=== PATIENT | male | born 1960 | race Caucasian/White ===

== ENCOUNTER 2018-02-16 19:10 | Inpatient (IN) | payer BC ==
[~2018-02-16] VITALS: Ht 180.3 cm; Wt 69.8 kg
[~2018-02-16 19:10] MED LIST: CYCL10TA PO
[2018-02-16] MEDS ORDERED: IOHEXOL 350 MG/ML 10 ML VIAL (for RAD DIAG) IVCONTRAST ONE (19:11)
[2018-02-16 19:40] VITALS: BP 86/55; PULSE 99; RESP 18; TEMP 98
[2018-02-16] MEDS ORDERED: CIPR500T2 PO (20:31)
[2018-02-16] MEDS ORDERED: METR1TAB76 PO (20:31)
[2018-02-16] MEDS ORDERED: METO1TAB42 PO (20:31)
[2018-02-16] MEDS ORDERED: FURO20TA PO (20:31)
[2018-02-16] MEDS ORDERED: SODIUM CHLOR 0.9% 1000 ML INJ 1,000 ML IV SCH (20:31)
[2018-02-16] MEDS ORDERED: GABA300C5 PO (20:31)
--- NOTE | 2018-02-16 20:31 | PD ---
HPI Chief Complaint: General Weakness Time Seen by Provider: 20:10 Travel History International Travel<30 days: No Contact w/Intl Traveler<30days: No Traveled to known affect area: No History of Present Illness HPI 57-year-old male with history of bladder cancer, prostate cancer with ureteral involvement status post prostatectomy with ileal conduit performed at [facility] in September 2016 status post chemotherapy and radiation therapy complicated by DVT. Patient subsequently had colo-vesical fistula underwent lysis of adhesions with colostomy 09/17/17. Subsequently developed pyuria from the urethra a CT September 2017 identified a fluid collection in the pelvis concerning for an abscess patient was managed at [facility] by Dr. soo ware and underwent exploratory laparotomy with small bowel resection and removal of an enterocutaneous fistula and drainage of pelvic abscess. Patient was managed during his hospitalization at [facility] in September also with infectious disease involvement and was treated with IV Zosyn oral Diflucan and ciprofloxacin patient also has history of CAD with previous UT cardiac catheterization with drug-eluting stent placed July 2017 and weight loss. Patient with history of tobacco use. Most recently patient was discharged approximately 3 weeks ago from [facility] after 3 months of hospitalizations for ongoing management of recurrent pelvic infection. Patient is currently on 3 outpatient antibiotics. Patient states that since he was discharged from [facility] in the past 2 weeks he has been seen by his oncologist Dr. Khan and his infectious disease specialist Dr. Altamirano. Patient states that he is not improving and has decided to come to [place] for a second opinion. Patient also reports he ran out of his pain medication 1 week ago and contacted his oncologist who prescribes his pain medication Dr. Khan and was told to come to the office on Wednesday (yesterday) or today Wednesday but when he contacted his oncologist they said he was not in the office. Patient decided to come to the emergency room at this time for a second opinion. Patient states he continues to have purulent drainage per rectum. Patient does not report any mucoid or bloody stool or rectal bleeding. PFSH Past Medical History Narrative Medical Bladder/prostate cancer status post surgical/chemo/radiation therapy under the care of Dr. Khan; colovesicular fistula pelvic abscess dyslipidemia CAD DVT weight loss cardiac catheterization with stent placement tobacco use; nursing notes reviewed Anxiety: No Depression: No Cancer: Yes (BLADDER - CHEMO/RADIATION) Cardiovascular Problems: No Chemotherapy: Yes (LAST NOV) Diabetes: No Diminished Hearing: No Endocrine: No Genitourinary: Yes (BLADDER CA, BPH) Hepatitis: No Hiatal Hernia: No Hypertension: Yes Immune Disorder: No Implanted Vascular Access Dvce: Yes (R INFUSA PORT- ADVISED HAS RIJ CLOT ) Musculoskeletal: No Neurologic: No Psychiatric: No Reproductive: No Respiratory: No Immunizations Current: Yes Radiation Therapy: Yes Thyroid Disease: No Past Surgical History AICD: No Body Medical Devices: RIGHT WRIST HARDWARE; Cardiac Surgery: No Ear Surgery: No Endocrine Surgery: No Eye Surgery: No Genitourinary Surgery: Yes (MULTI CYSTOS/ BLADDER SCRAPINGS) Gynecologic Surgery: No Joint Replacement: No Oral Surgery: No Pacemaker: No Thoracic Surgery: No Tonsillectomy: Yes Other Surgery: Yes (SEBACEOUS CYST REMOVAL, TUMOR REMOVED FROM BLADDER) Social History Alcohol Use: No Tobacco Use: No Substance Use: No Allergies-Medications (Allergen,Severity, Reaction): Coded Allergies: No Known Allergies (Verified Allergy, Unknown, 08/11/17) Reported Meds & Prescriptions Reported Meds & Active Scripts Active Reported Gabapentin 300 Mg Cap 300 Mg PO TID Ciprofloxacin (Ciprofloxacin HCl) 500 Mg Tab 500 Mg PO TID Metoprolol Succinate ER 24 HR (Metoprolol Succinate) 25 Mg Tab 25 Mg PO DAILY Furosemide 20 Mg Tab 20 Mg PO DAILY Metronidazole 500 Mg Tab 500 Mg PO TID Review of Systems Except as stated in HPI: all other systems reviewed are Neg General / Constitutional: Positive: Weight Loss, No: Fever, Chills HENT: No: Congestion Cardiovascular: No: Chest Pain or Discomfort Respiratory: No: Shortness of Breath Gastrointestinal: Positive: Other (pelvic/rectal pain and drainage from anus), No: Vomiting, Abdominal Pain Genitourinary: Positive: Pelvic Pain (chronmic) Musculoskeletal: Positive: Edema (pedal --taking lasix), No: Myalgias, Arthralgias Neurologic: Positive: Weakness, No: Dizziness, Syncope, Focal Abnormalities, Coordination Problem Psychiatric: Positive: Anxiety Hematologic/Lymphatic: No: Lymph Node Enlargement Physical Exam Narrative GENERAL: Ill-appearing male in no acute respiratory distress no acute distress. SKIN: Warm and dry. HEAD: Normocephalic. EYES: No scleral icterus. No injection or drainage. NECK: Supple, trachea midline. No JVD or lymphadenopathy. CARDIOVASCULAR: Regular rate and rhythm without murmurs, gallops, or rubs. RESPIRATORY: Breath sounds equal bilaterally. No accessory muscle use. GASTROINTESTINAL: Abdomen soft, non-tender, colostomy, ileal conduit, nondistended. MUSCULOSKELETAL: No cyanosis, or edema. BACK: Nontender without obvious deformity. No CVA tenderness. Data Data Last Documented VS Vital Signs Date Time Temp Pulse Resp B/P (MAP) Pulse Ox O2 Delivery O2 Flow Rate FiO2 02/16/18 23:07 18 95/61 (72) 100 Room Air 02/16/18 22:17 88 02/16/18 19:40 98.0 Orders Orders Complete Blood Count With Diff (02/16/18 20:31) Comprehensive Metabolic Panel (02/16/18 20:31) Lipase (02/16/18 20:31) Lactic Acid (02/16/18 20:31) Urinalysis - C+S If Indicated (02/16/18 20:31) Abdomen, Flat & Upright (02/16/18 ) Iv Access Insert/Monitor (02/16/18 20:31) Ecg Monitoring (02/16/18 20:31) Oximetry (02/16/18 20:31) Sodium Chlor 0.9% 1000 Ml Inj (Ns 1000 M (02/16/18 20:31) Sodium Chloride 0.9% Flush (Ns Flush) (02/16/18 20:45) Blood Culture (02/16/18 20:31) Urine Culture (02/16/18 20:58) Drug Screen, Random Urine (02/16/18 22:11) Sodium Chlorid 0.9% 500 Ml Inj (Ns 500 M (02/16/18 22:15) Cefepime Inj (Maxipime Inj) (02/16/18 22:15) Vancomycin Inj (Vancomycin Inj) (02/16/18 22:15) Ct Abd/Pel W Iv Contrast(Rout) (02/16/18 ) Admit Order (Ed Use Only) (02/16/18 ) Form Tamper Operator / Telemetry NAOMI.Q8H (02/16/18 23:09) Diet Heart Healthy (02/17/18 Breakfast) Activity Bed Rest (02/16/18 23:09) Notify Dr: Other (02/16/18 23:09) Iohexol 350 Inj (Omnipaque 350 Inj) (02/16/18 19:11) Labs Laboratory Tests Test 02/16/18 20:50 02/16/18 20:58 White Blood Count 14.0 TH/MM3 Red Blood Count 3.51 MIL/MM3 Hemoglobin 10.1 GM/DL Hematocrit 31.1 % Mean Corpuscular Volume 88.8 FL Mean Corpuscular Hemoglobin 28.9 PG Mean Corpuscular Hemoglobin Concent 32.5 % Red Cell Distribution Width 18.6 % Platelet Count 395 TH/MM3 Mean Platelet Volume 7.1 FL Neutrophils (%) (Auto) 87.6 % Lymphocytes (%) (Auto) 5.2 % Monocytes (%) (Auto) 5.3 % Eosinophils (%) (Auto) 1.3 % Basophils (%) (Auto) 0.6 % Neutrophils # (Auto) 12.3 TH/MM3 Lymphocytes # (Auto) 0.7 TH/MM3 Monocytes # (Auto) 0.7 TH/MM3 Eosinophils # (Auto) 0.2 TH/MM3 Basophils # (Auto) 0.1 TH/MM3 CBC Comment DIFF FINAL Differential Comment Blood Urea Nitrogen 35 MG/DL Creatinine 1.55 MG/DL Random Glucose 101 MG/DL Total Protein 6.5 GM/DL Albumin 2.4 GM/DL Calcium Level 8.3 MG/DL Alkaline Phosphatase 79 U/L Aspartate Amino Transf (AST/SGOT) 37 U/L Alanine Aminotransferase (ALT/SGPT) 27 U/L Total Bilirubin 0.3 MG/DL Sodium Level 136 MEQ/L Potassium Level 4.5 MEQ/L Chloride Level 101 MEQ/L Carbon Dioxide Level 21.3 MEQ/L Anion Gap 14 MEQ/L Estimat Glomerular Filtration Rate 47 ML/MIN Lactic Acid Level 2.6 mmol/L Lipase 92 U/L Urine Color YELLOW Urine Turbidity HAZY Urine pH 6.0 Urine Specific [place] 1.015 Urine Protein 30 mg/dL Urine Glucose (UA) NEG mg/dL Urine Ketones NEG mg/dL Urine Occult Blood NEG Urine Nitrite NEG Urine Bilirubin NEG Urine Urobilinogen LESS THAN 2.0 MG/DL Urine Leukocyte Esterase LARGE Urine RBC 6 /hpf Urine WBC 63 /hpf Urine Squamous Epithelial Cells 1 /hpf Urine Bacteria RARE /hpf Urine Mucus FEW /lpf Urine Yeast (Budding) OCC Microscopic Urinalysis Comment CULTURE INDICATED Urine Opiates Screen POS Urine Barbiturates Screen NEG Urine Amphetamines Screen NEG Urine Benzodiazepines Screen NEG Urine Cocaine Screen NEG Urine Cannabinoids Screen POS MDM Medical Decision Making Medical Screen Exam Complete: Yes Emergency Medical Condition: Yes Medical Record Reviewed: Yes (Diagnosed with bladder mass December 2013 at [facility] next day was seen at [place] admitted with biopsy and resection of mass by Dr. Iyer returned again in March 2015 with sepsis neutropenia after chemotherapy with radiation proctocolitis and diagnosis of small cell cancer of the bladder subsequently gap in management in the hospital at [place] until records were sent to office September 23 visits at [facility] conducted July 2000 05 September 2017 and September 2017.) Differential Diagnosis Pelvic infection, failed outpatient antibiotic therapy, intractable pain, sepsis , electrolyte disturbance Narrative Course IV access obtained specimens collected and sent for resulting patient given bolus of normal saline requesting pain medication but is currently hypotensive therefore unable to administer pain medication at this time At 10 PM records from [facility] available as of 01/02/18 pelvic abscess osteomyelitis of pubic symphysis possible sepsis treated with Zosyn and vancomycin and Flagyl surgery or the oncology consulted with history of bladder cancer status post cystectomy ileal conduit with enterocutaneous fistula and abscess completed cefepime STEMI ST elevation UT treated with Lovenox acute kidney injury with bilateral hydronephrosis hypomagnesemia hyperkalemia ileus polysubstance abuse urine drug screen positive for cocaine and THC and opiates; during the same hospitalization patient underwent successful angioplasty of completely occluded LAD 01/13/[address] Ingram Physician Communication Physician Communication h/o osteomyelitis; discussed with Dr Calhoun Diagnosis Primary Impression: Sepsis Additional Impressions: Hx of osteomyelitis H/O abdominal abscess Admitting Information Admitting Physician Requests: Admit Anabel Cardoso MD February 16, 2018 20:31
[2018-02-16] MEDS ORDERED: SODIUM CHLORIDE 0.9% FLUSH 10 ML FLUSH IV FLUSH PRN (20:45)
[2018-02-16 21:35] LABS: AUTOMATED NEUTROPHIL # 12.3 TH/MM3 (1.8-7.7); BASOPHIL # 0.1 TH/MM3 (0-0.2); BASOPHIL % 0.6 % (0.0-2.0); EOSINOPHIL # 0.2 TH/MM3 (0-0.4); EOSINOPHIL % 1.3 % (0.0-4.0); HEMATOCRIT 31.1 % (39.0-51.0); HEMOGLOBIN 10.1 GM/DL (13.0-17.0); LYMPH % 5.2 % (9.0-44.0); LYMPHOCYTE # 0.7 TH/MM3 (1.0-4.8); MEAN CELL VOLUME 88.8 FL (80.0-100.0); MEAN CORPUSCULAR HEMOGLOBIN 28.9 PG (27.0-34.0); MEAN CORPUSCULAR HGB CONC 32.5 % (32.0-36.0); MEAN PLATELET VOLUME 7.1 FL (7.0-11.0); MONO % 5.3 % (0.0-8.0); MONOCYTE # 0.7 TH/MM3 (0-0.9); NEUT % 87.6 % (16.0-70.0); PLATELET COUNT 395 TH/MM3 (150-450); RED BLOOD COUNT 3.51 MIL/MM3 (4.50-5.90); RED CELL DISTRIBUTION WIDTH 18.6 % (11.6-17.2)
[2018-02-16 21:44] LABS: BACTERIA, URINE RARE /hpf; BILIRUBIN, URINE NEG (NEG); BLOOD, URINE NEG (NEG); GLUCOSE,URINE NEG (NEG); KETONE, URINE NEG (NEG); MUCUS URINE FEW /lpf (OCC); NITRITE,URINE NEG (NEG); SQUAMOUS EPITHELIAL CELL URINE 1 /hpf (0-5); URINE COLOR YELLOW (YELLW/STRAW); URINE LEUKOCYTE ESTERASE LARGE (NEG)
--- NOTE | 2018-02-16 21:46 | RADRPT ---
EXAM DATE: 02/16/2018 9:36 PM EDT AGE/SEX: 57 years / Male INDICATIONS: Rectal pain and discharge. CLINICAL DATA: This is the patient's initial encounter. Patient reports that signs and symptoms have been present for 4 - 6 months and indicates a pain score of 7/10. MEDICAL/SURGICAL HISTORY: Carcinoma, bladder. Carcinoma, prostatic. Hypertension. Myocardial infarction. Chemotherapy. Radiation. Colostomy. Prostatectomy. Ileostomy. Transurethral resection. COMPARISON: No prior [facility] exams available for comparison. FINDINGS: Supine and upright views of the abdomen were performed. The abdominal bowel gas pattern is normal. No air-fluid levels are seen.. There appears to be two colostomies along the right and left midabdomen. Multiple surgical clips are seen in the pelvis bilaterally. There is a catheter overlying the suprap ubic area. The visualized lower lungs are clear. No evidence of free intraperitoneal gas. The osseous structures are unremarkable. CONCLUSION: Benign-appearing abdomen. Electronically signed by: Guzman Pablo MD 02/16/2018 9:44 PM EDT
[2018-02-16 22:00] LABS: ALT (GPT) 27 U/L (12-78)
[2018-02-16 22:02] LABS: ALKALINE PHOSPHATASE 79 U/L (45-117); TOTAL BILIRUBIN ADULT 0.3 MG/DL (0.2-1.0); TOTAL PROTEIN 6.5 GM/DL (6.4-8.2)
[2018-02-16 22:03] LABS: ALBUMIN 2.4 GM/DL (3.4-5.0); AST (GOT) 37 U/L (15-37); BICARBONATE 21.3 MEQ/L (21.0-32.0); BLOOD UREA NITROGEN 35 MG/DL (7-18); CALCIUM 8.3 MG/DL (8.5-10.1); CHLORIDE 101 MEQ/L (98-107); CREATININE 1.55 MG/DL (0.60-1.30); GLOMERULAR FILTRATION RATE 47 ML/MIN (>89); GLUCOSE,RANDOM 101 MG/DL (74-106); SODIUM (NA) 136 MEQ/L (136-145)
[2018-02-16] MEDS ORDERED: SODIUM CHLORID 0.9% 500 ML INJ 500 ML IV ONE (22:15)
[2018-02-16] MEDS ORDERED: VANCOMYCIN INJ 1,000 MG in SODIUM CHLOR 0.9% 250 ML INJ 250 ML IV ONE (22:15)
[2018-02-16] MEDS ORDERED: CEFEPIME INJ 2,000 MG in SODIUM CHLORIDE 0.9% INJ 100 ML IV ONE (22:15)
[2018-02-16 22:17] VITALS: BP 86/60; PULSE 88; RESP 16; O2SAT 95
[2018-02-16 23:07] VITALS: BP 95/61; RESP 18; O2SAT 100
--- NOTE | 2018-02-16 23:21 | RADRPT ---
EXAM DATE: 02/16/2018 11:09 PM EDT AGE/SEX: 57 years / Male INDICATIONS: Abdomen and pelvic pain. History of osteomyelitis. Discharge from rectum. CLINICAL DATA: This is the patient's initial encounter. Patient reports that signs and symptoms have been present for 1 week and indicates a pain score of 8/10. MEDICAL/SURGICAL HISTORY: Cardiovascular disease. Hypertension. Carcinoma, bladder. Colostomy . Prostatectomy. Ileostomy ORAL CONTRAST: No oral contrast ingested. RADIATION DOSE: 7.41 CTDI (mGy) [place] [facility] [place] 04/07/2015. . TECHNIQUE: Multiple contiguous axial images were obtained through the abdomen and pelvis following b olus infusion of 80 ml Omnipaque 350 (iohexol) nonionic water-soluble contrast as a cumulative dose for multiple exams. No oral contrast ingested. Using automated exposure control and adjustment of t he mA and/or kV according to patient size, the radiation dose was kept as low as reasonably achievabl e to obtain optimal diagnostic quality images. FINDINGS: Abdomen CT: The liver, spleen, pancreas, kidneys, adrenals are unremarkable. There is no evidence for any appreci able pathological adenopathy, free fluid, or bowel obstruction. There is diffuse anasarca. The stoma ch is distended measures 17.8 cm in size. Vascular calcifications are seen involving aorta and multip le visceral arteries and iliac arteries. Pelvic CT: There is an approximate 6.1 x 9.8 cm fluid collection inside the patient's rectum. The exact etiology is not certain, however possibility of abscess should be entertained. Extensive postsurgical changes are seen throughout. Ostomy site is seen on the right side and is extensive stool throughout the col on. Suprapubic catheter is present inside the bladder. CONCLUSION: 1. Diffuse anasarca. 2. Abnormal fluid collection inside the rectum nonspecific, however infectious fluid collection coul d have this appearance and clinical correlation is suggested. The exact etiology is not certain. 3. The stomach is distended with significant amount of stool throughout the colon without signs of s mall bowel obstruction. Electronically signed by: Shailesh Peter MD 02/16/2018 11:20 PM EDT
[2018-02-17] VITALS (13 sets, daily range): BP systolic 92–130; BP diastolic 59–77; PULSE 56–103; RESP 15–18; TEMP 97.5–98.1; O2SAT 94–96
[2018-02-17] MEDS ORDERED: LACTULOSE SYRUP 20 GM/30 ML CUP PO PRN (01:30)
[2018-02-17] MEDS ORDERED: ACETAMINOPHEN 325 MG TAB PO PRN (01:30)
[2018-02-17] MEDS ORDERED: SENNOSIDES 8.6 MG TAB PO PRN (01:30)
[2018-02-17] MEDS ORDERED: Vancomycin Consult Pharmacy 1 EA OTHER SCH (01:30)
[2018-02-17] MEDS ORDERED: MAGNESIUM HYDROXIDE SUSP 30 ML CUP PO PRN (01:30)
[2018-02-17] MEDS ORDERED: BISACODYL 10 MG SUPP RECTAL PRN (01:30)
[2018-02-17] MEDS ORDERED: NALOXONE HCL 0.4 MG/ML AMP IV PUSH PRN (01:30)
[2018-02-17] MEDS: SODIUM CHLOR 0.9% 1000 ML INJ 1,000 ML IV SCH ×3 (01:45→20:14)
[2018-02-17] MEDS ORDERED: ONDANSETRON ODT 4 MG TAB PO PRN ×2 (01:45)
--- NOTE | 2018-02-17 03:40 | HHI.HP ---
HPI Service [facility] Hospitalists Primary Care Physician Unknown Admission Diagnosis sepsis; h/o pelvic osteomyelitis; bladder CA Diagnoses: Travel History International Travel<30 Days: No Contact w/Intl Traveler <30 Da: No Traveled to Known Affected Are: No History of Present Illness 57-year-old male with a past medical history significant for bladder cancer, known pelvic abscess/infection and coronary disease status post SD 2 presents to the emergency department for the evaluation of pelvic pain that is not improving. The patient has an oncologist and infectious disease specialist at [facility] however he states he wanted to come to [place] for second opinion as he is compliant with his medication and his pain is not improving. The patient underwent prostatectomy with ileal conduit performed at [facility] in September 2016. He is status post chemotherapy and radiation therapy that was complicated by a DVT. 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 Subsequently developed pyuria from the urethra and a CT scan done in September 2017 identified a fluid collection in the pelvis concerning for an abscess. The patient was treated in [facility] for approximately 3 months (discharged 3 weeks ago) where he was treated with Zosyn, oral Diflucan and oral Cipro. Patient was discharged on Flagyl and Cipro with which he reports compliance. Of note the patient reports he ran out of his pain medication approximately 1 week ago. Patient denies any chest pain or shortness of breath. No fevers/chills. Positive pelvic pain. No nausea/vomiting/diarrhea. No lateralizing signs/ symptoms. Past Family Social History Allergies: Coded Allergies: No Known Allergies (Verified Allergy, Unknown, 08/11/17) Physical Exam Vital Signs Vital Signs Date Time Temp Pulse Resp B/P (MAP) Pulse Ox O2 Delivery O2 Flow Rate FiO2 02/17/18 02:32 102 16 108/68 (81) 96 Room Air 02/16/18 23:07 18 95/61 (72) 100 Room Air 02/16/18 22:17 88 16 86/60 (69) 95 Room Air 02/16/18 19:40 98.0 99 18 86/55 (65) Physical Exam GENERAL: This is a well-nourished, well-developed patient, in no apparent distress. SKIN: No rashes, ecchymoses or lesions. Cool and dry. HEAD: Atraumatic. Normocephalic. No temporal or scalp tenderness. EYES: Pupils equal round and reactive. Extraocular motions intact. No scleral icterus. No injection or drainage. ENT: Nose without bleeding, purulent drainage or septal hematoma. Throat without erythema, tonsillar hypertrophy or exudate. Uvula midline. Airway patent. NECK: Trachea midline. No JVD or lymphadenopathy. Supple, nontender, no meningeal signs. CARDIOVASCULAR: Regular rate and rhythm without murmurs, gallops, or rubs. RESPIRATORY: Clear to auscultation. Breath sounds equal bilaterally. No wheezes , rales, or rhonchi. GASTROINTESTINAL: Abdomen soft, non-tender, nondistended. No hepato-splenomegaly , or palpable masses. No guarding. MUSCULOSKELETAL: Extremities without clubbing, cyanosis, or edema. No joint tenderness, effusion, or edema noted. No calf tenderness. Negative Homans sign bilaterally. NEUROLOGICAL: Awake and alert. Cranial nerves II through XII intact. Motor and sensory grossly within normal limits. Five out of 5 muscle strength in all muscle groups. Normal speech. Laboratory Laboratory Tests Test 02/16/18 20:50 02/16/18 20:58 White Blood Count 14.0 Red Blood Count 3.51 Hemoglobin 10.1 Hematocrit 31.1 Mean Corpuscular Volume 88.8 Mean Corpuscular Hemoglobin 28.9 Mean Corpuscular Hemoglobin Concent 32.5 Red Cell Distribution Width 18.6 Platelet Count 395 Mean Platelet Volume 7.1 Neutrophils (%) (Auto) 87.6 Lymphocytes (%) (Auto) 5.2 Monocytes (%) (Auto) 5.3 Eosinophils (%) (Auto) 1.3 Basophils (%) (Auto) 0.6 Neutrophils # (Auto) 12.3 Lymphocytes # (Auto) 0.7 Monocytes # (Auto) 0.7 Eosinophils # (Auto) 0.2 Basophils # (Auto) 0.1 CBC Comment DIFF FINAL Differential Comment Blood Urea Nitrogen 35 Creatinine 1.55 Random Glucose 101 Total Protein 6.5 Albumin 2.4 Calcium Level 8.3 Alkaline Phosphatase 79 Aspartate Amino Transf (AST/SGOT) 37 Alanine Aminotransferase (ALT/SGPT) 27 Total Bilirubin 0.3 Sodium Level 136 Potassium Level 4.5 Chloride Level 101 Carbon Dioxide Level 21.3 Anion Gap 14 Estimat Glomerular Filtration Rate 47 Lactic Acid Level 2.6 Lipase 92 Urine Color YELLOW Urine Turbidity HAZY Urine pH 6.0 Urine Specific [place] 1.015 Urine Protein 30 Urine Glucose (UA) NEG Urine Ketones NEG Urine Occult Blood NEG Urine Nitrite NEG Urine Bilirubin NEG Urine Urobilinogen LESS THAN 2.0 Urine Leukocyte Esterase LARGE Urine RBC 6 Urine WBC 63 Urine Squamous Epithelial Cells 1 Urine Bacteria RARE Urine Mucus FEW Urine Yeast (Budding) OCC Microscopic Urinalysis Comment CULTURE INDICATED Urine Opiates Screen POS Urine Barbiturates Screen NEG Urine Amphetamines Screen NEG Urine Benzodiazepines Screen NEG Urine Cocaine Screen NEG Urine Cannabinoids Screen POS Date/Time Source Procedure Growth Status 02/16/18 20:58 Blood Peripheral Aerobic Blood Culture Pending Received 02/16/18 20:58 Blood Peripheral Anaerobic Blood Culture Pending Received 02/16/18 20:58 Urine Random Urine Urine Culture Pending Received Result Diagram: 02/16/18204902/16/182049 Caprini VTE Risk Assessment Caprini VTE Risk Assessment: Mod/High Risk (score >= 2) Caprini Risk Assessment Model Point Value = 1 Point Value = 2 Point Value = 3 Point Value = 5 Age 41-60 Minor surgery BMI > 25 kg/m2 Swollen legs Varicose veins or History of unexplained or recurrent spontaneous Oral contraceptives or hormone replacement Sepsis (< 1 month) Serious lung disease, including pneumonia (< 1 month) Abnormal pulmonary function Acute myocardial infarction Congestive heart failure (< 1 month) History of inflammatory bowel disease Medical patient at bed rest Age 61-74 Arthroscopic surgery Major open surgery (> 45 min) Laparoscopic surgery (> 45 min) Malignancy Confined to bed (> 72 hours) Immobilizing plaster cast Central venous access Age >= 75 History of VTE Family history of VTE Factor V Leiden Prothrombin [id number] Lupus anticoagulant Anticardiolipin antibodies Elevated serum homocysteine Heparin-induced thrombocytopenia Other congenital or acquired thrombophilia Stroke (< 1 month) Elective arthroplasty Hip, pelvis, or leg fracture Acute spinal cord injury (< 1 month) Prophylaxis Regimen Total Risk Factor Score Risk Level Prophylaxis Regimen 0-1 Low Early ambulation 2 Moderate Order ONE of the following: *Sequential Compression Device (SCD) *Heparin 5000 units SQ BID 3-4 Higher Order ONE of the following medications: *Heparin 5000 units SQ TID *Enoxaparin/Lovenox 40 mg SQ daily (WT < 150 kg, CrCl > 30 mL/min) *Enoxaparin/Lovenox 30 mg SQ daily (WT < 150 kg, CrCl > 10-29 mL/min) *Enoxaparin/Lovenox 30 mg SQ BID (WT < 150 kg, CrCl > 30 mL/min) AND/OR *Sequential Compression Device (SCD) 5 or more Highest Order ONE of the following medications: *Heparin 5000 units SQ TID (Preferred with Epidurals) *Enoxaparin/Lovenox 40 mg SQ daily (WT < 150 kg, CrCl > 30 mL/min) *Enoxaparin/Lovenox 30 mg SQ daily (WT < 150 kg, CrCl > 10-29 mL/min) *Enoxaparin/Lovenox 30 mg SQ BID (WT < 150 kg, CrCl > 30 mL/min) AND *Sequential Compression Device (SCD) Assessment and Plan Assessment and Plan Assessment/plan: 1. Pelvic infection/sepsis Patient with elevated lactic acid, leukocytosis, tachycardia and hypotension CT of the abdomen/pelvis horrible for correction and find the rectum that is nonspecific however may be infectious Vancomycin and cefepime Blood cultures pending Infectious disease consulted, appreciate recommendations 2. History of bladder cancer Continue outpatient follow-up with oncologist 3. Coronary artery disease Continue metoprolol 4. Anasarca Continue Lasix FEN Heart healthy diet Electrolytes: Monitor and replete as needed NS at 100 cc/hour Holding pharmacologic anticoagulation for possible fluid collection drainage Physician Certification 2 Midnight Certification Type: Admission for Inpatient Services Order for Inpatient Services The services are ordered in accordance with Medicare regulations or non- Medicare payer requirements, as applicable. In the case of services not specified as inpatient-only, they are appropriately provided as inpatient services in accordance with the 2-midnight benchmark. Estimated LOS (days): 2 2 days is the estimated time the patient will need to remain in the hospital, assuming treatment plan goals are met and no additional complications. Post-Hospital Plan: Not yet determined Hailee Calhoun MD February 17, 2018 03:40
[2018-02-17] MEDS: FUROSEMIDE 20 MG TAB PO SCH (08:30)
[2018-02-17] MEDS: GABAPENTIN 300 MG CAP PO SCH ×3 (08:30→20:07)
[2018-02-17] MEDS: METOPROLOL SUCCINATE 25 MG EXTENDED RELEASE TAB PO SCH (08:30)
[2018-02-17] MEDS: SODIUM CHLORIDE 0.9% FLUSH 10 ML FLUSH IV FLUSH SCH ×2 (08:31→20:10)
[2018-02-17] MEDS: CEFEPIME INJ 2,000 MG in SODIUM CHLORIDE 0.9% INJ 100 ML IV SCH ×2 (10:43→22:57)
[2018-02-17] MEDS ORDERED: OXYC-396 (10:59)
[2018-02-17] MEDS ORDERED: HYDR8TAB PO (11:00)
[2018-02-17] MEDS ORDERED: SODIUM CHLORID 0.9% 500 ML INJ 500 ML IV ONE (11:15)
[2018-02-17] MEDS ORDERED: MORPHINE SULFATE 2 MG/ML SYRINGE IV PUSH PRN (11:15)
[2018-02-17] MEDS ORDERED: HYDROmorphone HCL PF 1 MG/ML VIAL IV PUSH ONE (11:30)
[2018-02-17] MEDS ORDERED: HYDROmorphone HCL PF 2 MG/ML VIAL IV PUSH ONE (11:30)
--- NOTE | 2018-02-17 12:39 | PD.ID.CON ---
History of Present Illness Service Infectious disease Consult Requested By Hospitalist service Reason for Consult Osteomyelitis of pubic symphysis Primary Care Physician Unknown Diagnoses: History of Present Illness Patient seen and examined on behalf of Dr. Junior This is a 57-year-old male with past medical history significant for bladder cancer prostate cancer with ureteral involvement diagnosed in 2013 who subsequently underwent bladder resection and radical prostatectomy with ileal conduit that was performed at [facility] in September 2016. Patient has undergone chemotherapy and radiation therapy is complicated by development of a DVT. He subsequently developed a colo-vesicle fistula and underwent lysis of adhesions with colostomy that was performed September 17, 2017. In September of this year, patient was admitted at [facility] for fluid collection in the pelvis concerning for abscess and underwent an expiratory laparotomy with small bowel resection and removal of enterocutaneous fistula and drainage of pelvic abscess. Patient was managed during this hospitalization by infectious disease and treated with IV Zosyn, Diflucan and ciprofloxacin. Most recently, patient was discharged approximately 3 weeks ago from [facility] after 3 months of hospitalization for ongoing management of recurrent pelvic infection. He was discharged on oral Flagyl and Cipro which he states he has been compliant with. Patient has continued to follow-up with his oncologist Dr. Khan and his infectious disease specialist Dr. Altamirano as an outpatient. Patient reports a 40 pound weight loss in the past month. Patient decided to come to [place] for second opinion as he states he is not improving. He continues to have severe pain in his rectum and bloody mucoid discharge. Patient denies any complaints of fever, chills or night sweats. He denies any nausea vomiting or abdominal pain. He denies any chest pain or shortness of breath. In the ED, patient presented with sepsis with white count of 14, lactic acid 2.6, renal failure with creatinine 1.55, hypotension and tachycardia. CT of the abdomen and pelvis was obtained which revealed diffuse anasarca, distended stomach and a 6.1 x 9.8 cm fluid collection inside the patient's rectum with extensive stool throughout the colon without any signs of obstruction. UA was suggestive of UTI with large leukocytes, 63 white blood cells, 6 red blood cells, rare bacteria and occasional yeast, culture indicated. Infectious disease consultation has been requested for evaluation and management of abdominal abscess. (Alix Fajardo) Review of Systems Except as stated in HPI: all other systems reviewed are Neg (Alix Fajardo) Past Family Social History Allergies: Coded Allergies: No Known Allergies (Verified Allergy, Unknown, 08/11/17) Past Medical History Bladder cancer Prostate cancer with ureteral involvement Colourethral fistula Hx of pelvic abscess Pelvic pubic symphysis osteomyelitis CAD s/p AR x 2 and stent implantation Dyslipidemia Previous DVT Past Surgical History Radical cystoproctectomy with ileal conduit Exploration with clean out of pelvic abscess and diverting colostomy Exploratory laparotomy for clean out of pelvic abscess ORIF right wrist Reported Medications Hydromorphone (Hydromorphone HCl) 8 Mg Tab 8 Mg PO Q6H PRN Oxycodone (Oxycodone HCl) 20 Mg Tab 20 Mg Q4HR PRN Gabapentin 300 Mg Cap 300 Mg PO TID Ciprofloxacin (Ciprofloxacin HCl) 500 Mg Tab 500 Mg PO TID Metoprolol Succinate ER 24 HR (Metoprolol Succinate) 25 Mg Tab 25 Mg PO DAILY Furosemide 20 Mg Tab 20 Mg PO DAILY Metronidazole 500 Mg Tab 500 Mg PO TID Active Ordered Medications IV Cefepime IV Vancomycin Current Medications Medications (Trade) Dose Ordered Sig/Bruno Route Start Time Stop Time Status Last Admin Sodium Chloride 1,000 ml @ 100 mls/hr Q10H IV 02/17/18 01:25 02/17/18 01:45 (NS Flush) 2 ml UNSCH PRN IV FLUSH 02/17/18 01:30 (NS Flush) 2 ml BID IV FLUSH 02/17/18 09:00 02/17/18 08:31 (Tylenol) 650 mg Q4H PRN PO 02/17/18 01:30 (Narcan Inj) 0.4 mg UNSCH PRN IV PUSH 02/17/18 01:30 (Milk Of Magnesia Liq) 30 ml Q12H PRN PO 02/17/18 01:30 (Senokot) 17.2 mg Q12H PRN PO 02/17/18 01:30 (Dulcolax Supp) 10 mg DAILY PRN RECTAL 02/17/18 01:30 (Lactulose Liq) 30 ml DAILY PRN PO 02/17/18 01:30 Pharmacy Profile Note 0 ml @ 0 mls/hr UNSCH OTHER 02/17/18 01:30 Cefepime HCl 2000 mg/Sodium Chloride 100 ml @ 200 mls/hr Q12H IV 5/31/18 11:00 02/17/18 10:43 (Lasix) 20 mg DAILY PO 02/17/18 09:00 02/17/18 08:30 (Neurontin) 300 mg TID PO 02/17/18 09:00 02/17/18 08:30 (Toprol Xl) 25 mg DAILY PO 02/17/18 09:00 02/17/18 08:30 (Zofran Odt) 4 mg Q6H PRN PO 02/17/18 01:45 Vancomycin HCl 1000 mg/Sodium Chloride 250 ml @ 250 mls/hr Q24H IV 02/17/18 17:00 ([facility] [place] Lab Info) SPECIFIC LAB TO BE DRAWN: VANCO TROUGH DATE... ONCE ONCE .XX 02/19/18 16:45 02/19/18 16:46 Sodium Chloride 500 ml @ 500 mls/hr BOLUS ONCE IV 02/17/18 11:15 02/17/18 12:14 (Morphine Inj) 5 mg Q4H PRN IV PUSH 02/17/18 11:15 (Dilaudid Pf Inj) 1 mg Q4H PRN IV PUSH 02/17/18 11:30 (Morphine Inj) 2 mg Q4H PRN IV PUSH 02/17/18 11:30 Family History Reviewed with patient and noncontributory Social History Patient denies any tobacco use, EtOH consumption or IVDU. Patient admits to smoking marijuana. (Alix Fajardo) Physical Exam Vital Signs Vital Signs Date Time Temp Pulse Resp B/P (MAP) Pulse Ox O2 Delivery O2 Flow Rate FiO2 02/17/18 10:42 97.5 18 93/72 (79) 02/17/18 09:45 97.9 78 16 128/77 (94) 98 02/17/18 07:41 98.1 85 15 130/71 (90) 96 Room Air 02/17/18 07:41 87 16 96 Room Air 02/17/18 02:32 102 16 108/68 (81) 96 Room Air 02/16/18 23:07 18 95/61 (72) 100 Room Air 02/16/18 22:17 88 16 86/60 (69) 95 Room Air 02/16/18 19:40 98.0 99 18 86/55 (65) Physical Exam GENERAL: This is a thin ill-appearing male patient, in no apparent distress. Awake and alert. Appears uncomfortable from rectal pain, standing and leaning over on table during visit. SKIN: No rashes, ecchymoses or lesions. Cool and dry. HEAD: Atraumatic. Normocephalic. No temporal or scalp tenderness. EYES: Pupils equal round and reactive. Extraocular motions intact. No scleral icterus. No injection or drainage. ENT: Nose without bleeding or purulent drainage. Throat without erythema, tonsillar hypertrophy or exudate. Uvula midline. Airway patent. NECK: Trachea midline. No JVD or lymphadenopathy. Supple, nontender, no meningeal signs. CARDIOVASCULAR: Regular rate and rhythm without murmurs, gallops, or rubs. RESPIRATORY: Clear to auscultation. Breath sounds equal bilaterally. No wheezes , rales, or rhonchi. GASTROINTESTINAL: Abdomen soft, non-tender, nondistended. No hepato-splenomegaly , or palpable masses. No guarding. +Ileal Conduit with clear yellow urine in bag. +Colostomy LLQ MUSCULOSKELETAL: Extremities without clubbing or cyanosis. 2+ BLE pitting edema. No joint tenderness, effusion, or edema noted. No calf tenderness. NEUROLOGICAL: Awake and alert. Cranial nerves II through XII intact. Motor and sensory grossly within normal limits. No focal neurologic findings appreciated. Normal speech. PSYCHIATRIC: Calm and cooperative PIV with no e/o infection Laboratory Laboratory Tests Test 02/16/18 20:50 02/16/18 20:58 02/17/18 04:00 White Blood Count 14.0 Red Blood Count 3.51 Hemoglobin 10.1 Hematocrit 31.1 Mean Corpuscular Volume 88.8 Mean Corpuscular Hemoglobin 28.9 Mean Corpuscular Hemoglobin Concent 32.5 Red Cell Distribution Width 18.6 Platelet Count 395 Mean Platelet Volume 7.1 Neutrophils (%) (Auto) 87.6 Lymphocytes (%) (Auto) 5.2 Monocytes (%) (Auto) 5.3 Eosinophils (%) (Auto) 1.3 Basophils (%) (Auto) 0.6 Neutrophils # (Auto) 12.3 Lymphocytes # (Auto) 0.7 Monocytes # (Auto) 0.7 Eosinophils # (Auto) 0.2 Basophils # (Auto) 0.1 CBC Comment DIFF FINAL Differential Comment Blood Urea Nitrogen 35 Creatinine 1.55 Random Glucose 101 Total Protein 6.5 Albumin 2.4 Calcium Level 8.3 Alkaline Phosphatase 79 Aspartate Amino Transf (AST/SGOT) 37 Alanine Aminotransferase (ALT/SGPT) 27 Total Bilirubin 0.3 Sodium Level 136 Potassium Level 4.5 Chloride Level 101 Carbon Dioxide Level 21.3 Anion Gap 14 Estimat Glomerular Filtration Rate 47 Lactic Acid Level 2.6 1.4 Lipase 92 Urine Color YELLOW Urine Turbidity HAZY Urine pH 6.0 Urine Specific Hub[place] 1.015 Urine Protein 30 Urine Glucose (UA) NEG Urine Ketones NEG Urine Occult Blood NEG Urine Nitrite NEG Urine Bilirubin NEG Urine Urobilinogen LESS THAN 2.0 Urine Leukocyte Esterase LARGE Urine RBC 6 Urine WBC 63 Urine Squamous Epithelial Cells 1 Urine Bacteria RARE Urine Mucus FEW Urine Yeast (Budding) OCC Microscopic Urinalysis Comment CULTURE INDICATED Urine Opiates Screen POS Urine Barbiturates Screen NEG Urine Amphetamines Screen NEG Urine Benzodiazepines Screen NEG Urine Cocaine Screen NEG Urine Cannabinoids Screen POS Date/Time Source Procedure Growth Status 02/16/18 20:58 Blood Peripheral Aerobic Blood Culture - Preliminary NO GROWTH IN 1 DAY Resulted 02/16/18 20:58 Blood Peripheral Anaerobic Blood Culture - Preliminary NO GROWTH IN 1 DAY Resulted 02/16/18 20:58 Urine Random Urine Urine Culture Pending Received (Alix Fajardo) Result Diagram: 02/16/18204902/16/182049 Imaging Last Impressions Abdomen/Pelvis CT 02/16/18 0000 Signed Impressions: CONCLUSION: 1. Diffuse anasarca. 2. Abnormal fluid collection inside the rectum nonspecific, however infectious fluid collection could have this appearance and clinical correlation is sugges deondre. The exact etiology is not certain. 3. The stomach is distended with significant amount of stool throughout the co cinthya without signs of small bowel obstruction. Abdomen X-Ray 02/16/18 0000 Signed Impressions: CONCLUSION: Benign-appearing abdomen. (Alix Fajardo) Assessment and Plan Assessment and Plan Severe sepsis at ED presentation -CT abd/pelvis shows diffuse anasarca, abnormal fluid collection inside the rectum ?infectious Hx of bladder and prostate cancer s/p chem/XRT/radical resection Hx of colovesicular fistula s/p colostomy Constipation CAD s/p AR and stent placement RECS: Continue on IV vancomycin and cefepime Follow-up on all culture results Follow-up on CRS assessment and recommendations Follow clinically (Alix Fajarod) Assessment and Plan The exam, history, and the medical decision-making described in the above note were completed with the assistance of the mid-level provider. I reviewed and agree with the findings presented. I attest that I had a [id number] encounter with the patient on the same day, and personally performed and documented my assessment and findings in the medical record. Patient reports bladder cancer prostate cancer with ureteral involvement diagnosed in 2013 who subsequently underwent bladder resection and radical prostatectomy with ileal conduit that was performed at [facility] in September 2016. He reports he has an oncologist in [facility] as well as at [facility] and he has cancer spots on his lung. He reports being admitted at [facility] for rectal abscess s/p drain placement. He also has a Colostomy and ileal conduit. He was on IV antibiotics while in hospital and discharged on Oral Cipro and Flagyl. He is unhappy with his discharge from other hospital as he is still in pain and that is the reason why he decided to come to [facility] [address]. Has a drain and he was told it is draining his rectal abscess and was asked to flush He denies any fever, chills or night sweats. He reports 30 lb weight loss unintentional in last 1 month. He says I am not ready to at 57 yrs of age. He reports proctalgia and blood per rectum. On exam Ileal conduit in place. Colostomy in place. Drain in place. Abd NT. CTA BL. Recs: Continue Cefepime IV DC Vanco IV Start Flagyl oral Start Diflucan oral Obtain medical records from [facility] petey RN dw patient. He would like Oncology consulted so he can establish new oncology care. Will follow along. (Marilia Junior MD) Alix Fajardo February 17, 2018 12:39 Marilia Junior MD February 17, 2018 17:42
[2018-02-17] MEDS: MORPHINE SULFATE 8 MG/ML INJ IV PUSH PRN ×3 (14:01→22:58)
[2018-02-17] MEDS: HYDROmorphone HCL PF 2 MG/ML VIAL IV PUSH PRN ×2 (16:19→20:10)
[2018-02-17] MEDS ORDERED: VANCOMYCIN 1,000 MG/NS 250 ML IV SCH ×2 (17:00)
[2018-02-17] MEDS: FLUCONAZOLE 100 MG TAB PO SCH (18:16)
[2018-02-17] MEDS: metroNIDAZOLE 500 MG TAB PO SCH ×2 (18:16→22:57)
--- NOTE | 2018-02-17 18:33 | MB ---
cc: Raegan Junior MD, Kathleen MD DATE: 02/17/2018 CHIEF COMPLAINT: Possible rectal abscess. HISTORY OF PRESENT ILLNESS: The patient is an unfortunate 57-year-old male who was diagnosed with bladder cancer 4 years ago. He was initially treated at [facility] with a radical cystectomy and prostatectomy with ileal conduit. he continued with chemotherapy and radiation with 30 doses of radiation treatments at [facility]. He then switched his care to [facility] where he is taken care of by Dr. Khan, Dr. Chapman and Dr. Angeles. He began having rectal pain and was diagnosed with a recurrence of his cancer in the pelvis, which was biopsied and was consistent with his previous cancer. He was treated with 10 additional rounds of radiation and, post-treatment, he began having both air and stool come out his penis. 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 Lipscomb and Dr. Angeles cleaning out the pelvis and diverting with a left lateral diverting colostomy. At his most recent admission at [facility], he continued to have pelvic infection and was also felt to have a pelvic pubic symphysis osteomyelitis and was being treated with long-term antibiotics. In addition, he had 3 more rounds of chemotherapy and was scheduled for more chemotherapy ongoing. He ran out of pain medicine about 1 week ago and came to the hospital here at [place] with a desire for a second opinion. At the time of admission, he had severe anal pain but denies fevers or chills, nausea, vomiting, diarrhea. He has no abdominal pain and has been stooling regularly through his stoma without difficulty. He does note that he intermittently feels the urge to pass stool from his rectum, sits on the commode and passes some mucus with some mild blood-tinging. PAST MEDICAL HISTORY: None with the exception of the bladder cancer. PAST SURGICAL HISTORY: Surgery as above including 1. Radical cystoproctectomy with ileal conduit. 2. Exploration with clean out of pelvic abscess and diverting sigmoid colostomy. 3. Exploratory laparotomy again for clean-out of pelvic abscess. ALLERGIES: NONE. MEDICATIONS: See nurse's notes for details. REVIEW OF SYSTEMS: Negative for chest pain, shortness of breath, fevers, chills, difficulty with ambulation. PHYSICAL EXAMINATION: GENERAL: Reveals a cachectic white male who appears in pain. NEUROLOGIC: Grossly intact. SKIN: Warm and dry. CARDIOVASCULAR: Regular rate CHEST: Breathing is symmetric bilaterally and nonlabored. ABDOMEN: Soft, nontender. He has a right-sided ostomy presumably from his ileal conduit with urine in the bag and a left lower quadrant colostomy with stool in the bag. He is nontender to palpation. He has multiple well-healed incisions. EXTREMITIES: Reveal no edema. RECTAL: External anal exam reveals a firmness on the right side of his buttocks and digital rectal examination reveals a large hard tumor almost circumferential, more right than left, and with the expression of large amounts of mucus but no evidence of pus or bogginess indicative of an anal abscess. LABORATORY DATA: Reveals a white count of 14.0, hemoglobin 10.1 and platelets of 395. Chemistry from yesterday shows sodium 136, potassium 4.5, chloride 101, bicarbonate is 21.3, creatinine is 1.55, BUN is 35 and glucose is 101. Urine is positive for leukocyte esterase, white cells and bacteria and has been sent for culture. IMAGING STUDIES: A CT scan showed diffuse anasarca, distended stomach, stool in the pelvis and a 6 x 10 cm fluid collection within the rectum. Ostomy is visualized as well. They state there is a suprapubic catheter present inside the bladder, but I assume that is within the ileal conduit. 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 PLAN: This patient clearly needs care at a tertiary care center. He may or may not be a candidate for pelvic exoneration with removal of the rectum and the tumor that is in the pelvis. He is not a candidate for any further radiation, as he has reached his maximum pelvic radiation dose. In addition, he will obviously need more chemotherapy and I fear that it is more likely that he is only a candidate for hospice; however, this would need to be decided at the tertiary care center where he would need to be evaluated to determine whether he is even eligible for a pelvic exoneration. I will ask the social work administrator to see him to see if they can ascertain which tertiary care centers such as either [facility], [facility] or elsewhere would accept his insurance. Thank you very much for your kind referral. MD LASHAWN Hernandes/ , 06:00 PM , 06:32 PM
[2018-02-18] VITALS (10 sets, daily range): BP systolic 92–132; BP diastolic 55–70; PULSE 96–160; RESP 16–18; TEMP 97.4–98.2; O2SAT 91–100
[2018-02-18] MEDS: HYDROmorphone HCL PF 2 MG/ML VIAL IV PUSH PRN ×4 (00:43→19:31)
[2018-02-18] MEDS: MORPHINE SULFATE 8 MG/ML INJ IV PUSH PRN ×3 (03:39→22:14)
[2018-02-18] MEDS: metroNIDAZOLE 500 MG TAB PO SCH ×3 (05:38→22:13)
[2018-02-18 07:59] LABS: AUTOMATED NEUTROPHIL # 11.5 TH/MM3 (1.8-7.7); BASOPHIL % 0.3 % (0.0-2.0); BICARBONATE 24.6 MEQ/L (21.0-32.0); CREATININE 0.96 MG/DL (0.60-1.30); EOSINOPHIL # 0.2 TH/MM3 (0-0.4); EOSINOPHIL % 1.1 % (0.0-4.0); HEMATOCRIT 33.8 % (39.0-51.0); HEMOGLOBIN 10.8 GM/DL (13.0-17.0); LYMPH % 4.7 % (9.0-44.0); LYMPHOCYTE # 0.6 TH/MM3 (1.0-4.8); MEAN CELL VOLUME 89.2 FL (80.0-100.0); MEAN CORPUSCULAR HEMOGLOBIN 28.6 PG (27.0-34.0); MEAN PLATELET VOLUME 7.9 FL (7.0-11.0); MONO % 6.6 % (0.0-8.0); MONOCYTE # 0.9 TH/MM3 (0-0.9); NEUT % 87.3 % (16.0-70.0); PLATELET COUNT 401 TH/MM3 (150-450); RED BLOOD COUNT 3.79 MIL/MM3 (4.50-5.90); RED CELL DISTRIBUTION WIDTH 18.7 % (11.6-17.2); WHITE BLOOD COUNT 13.1 TH/MM3 (4.0-11.0)
[2018-02-18] MEDS: GABAPENTIN 300 MG CAP PO SCH ×3 (08:45→19:19)
[2018-02-18] MEDS: FLUCONAZOLE 100 MG TAB PO SCH (08:45)
[2018-02-18] MEDS: SODIUM CHLORIDE 0.9% FLUSH 10 ML FLUSH IV FLUSH SCH ×2 (08:46→22:13)
[2018-02-18] MEDS: SODIUM CHLOR 0.9% 1000 ML INJ 1,000 ML IV SCH (08:46)
[2018-02-18] MEDS: FUROSEMIDE 20 MG TAB PO SCH (08:50)
[2018-02-18] MEDS: METOPROLOL SUCCINATE 25 MG EXTENDED RELEASE TAB PO SCH (08:51)
--- NOTE | 2018-02-18 09:58 | HHI.IDPN ---
Subjective Subjective Remarks Patient seen and examined on behalf of Dr. Junior This is a 57-year-old male with past medical history significant for bladder cancer prostate cancer with ureteral involvement diagnosed in 2013 who subsequently underwent bladder resection and radical prostatectomy with ileal conduit that was performed at [facility] in September 2016. Patient has undergone chemotherapy and radiation therapy is complicated by development of a DVT. He subsequently developed a colo-vesicle fistula and underwent lysis of adhesions with colostomy that was performed September 17, 2017. In September of this year, patient was admitted at [facility] for fluid collection in the pelvis concerning for abscess and underwent an expiratory laparotomy with small bowel resection and removal of enterocutaneous fistula and drainage of pelvic abscess. Patient was managed during this hospitalization by infectious disease and treated with IV Zosyn, Diflucan and ciprofloxacin. Most recently, patient was discharged approximately 3 weeks ago from [facility] after 3 months of hospitalization for ongoing management of recurrent pelvic infection. He was discharged on oral Flagyl and Cipro which he states he has been compliant with. Patient has continued to follow-up with his oncologist Dr. Khan and his infectious disease specialist Dr. Altamirano as an outpatient. Patient reports a 40 pound weight loss in the past month. Patient decided to come to [place] for second opinion as he states he is not improving. He continues to have severe pain in his rectum and bloody mucoid discharge. Patient denies any complaints of fever, chills or night sweats. He denies any nausea vomiting or abdominal pain. He denies any chest pain or shortness of breath. In the ED, patient presented with sepsis with white count of 14, lactic acid 2.6, renal failure with creatinine 1.55, hypotension and tachycardia. CT of the abdomen and pelvis was obtained which revealed diffuse anasarca, distended stomach and a 6.1 x 9.8 cm fluid collection inside the patient's rectum with extensive stool throughout the colon without any signs of obstruction. UA was suggestive of UTI with large leukocytes, 63 white blood cells, 6 red blood cells, rare bacteria and occasional yeast, culture indicated. Infectious disease consultation has been requested for evaluation and management of abdominal abscess. Notes reviewed patient c/o severe rectal pain, he was supposed to receive his pain medication one hour ago denies any improvement no fever no rash no N/V no abd pain no diarrhea Antibiotics IV Cefepime po Flagyl po Diflucan Current Medications Medications (Trade) Dose Ordered Sig/Bruno Route Start Time Stop Time Status Last Admin Sodium Chloride 1,000 ml @ 100 mls/hr Q10H IV 02/17/18 01:25 02/18/18 08:46 (NS Flush) 2 ml UNSCH PRN IV FLUSH 02/17/18 01:30 (NS Flush) 2 ml BID IV FLUSH 02/17/18 09:00 02/17/18 20:10 (Tylenol) 650 mg Q4H PRN PO 02/17/18 01:30 (Narcan Inj) 0.4 mg UNSCH PRN IV PUSH 02/17/18 01:30 (Milk Of Magnesia Liq) 30 ml Q12H PRN PO 02/17/18 01:30 (Senokot) 17.2 mg Q12H PRN PO 02/17/18 01:30 (Dulcolax Supp) 10 mg DAILY PRN RECTAL 02/17/18 01:30 (Lactulose Liq) 30 ml DAILY PRN PO 02/17/18 01:30 Cefepime HCl 2000 mg/Sodium Chloride 100 ml @ 200 mls/hr Q12H IV 02/17/18 11:00 02/17/18 22:57 (Lasix) 20 mg DAILY PO 02/17/18 09:00 02/17/18 08:30 (Neurontin) 300 mg TID PO 02/17/18 09:00 02/18/18 08:45 (Toprol Xl) 25 mg DAILY PO 02/17/18 09:00 02/17/18 08:30 (Zofran Odt) 4 mg Q6H PRN PO 02/17/18 01:45 (Morphine Inj) 5 mg Q4H PRN IV PUSH 02/17/18 11:15 02/18/18 08:45 (Dilaudid Pf Inj) 1 mg Q4H PRN IV PUSH 02/17/18 11:30 02/18/18 05:39 (Morphine Inj) 2 mg Q4H PRN IV PUSH 02/17/18 11:30 (Flagyl) 500 mg Q8HR PO 02/17/18 16:00 02/18/18 05:38 (Diflucan) 100 mg DAILY PO 02/17/18 16:00 02/18/18 08:45 Lines PIV with no e/o infection Past Medical History Bladder cancer Prostate cancer Colourethral fistula Hx of pelvic abscess Hx of pelvic pubic symphysis osteomyelitis CAD s/p ND x 2 and stent implantation Dyslipidemia Previous DVT (Alix Fajardo) Allergies: Coded Allergies: No Known Allergies (Verified Allergy, Unknown, 08/11/17) Objective . Vital Signs Date Time Temp Pulse Resp B/P (MAP) Pulse Ox O2 Delivery O2 Flow Rate FiO2 02/18/18 08:00 97.8 107 16 92/64 (73) 100 02/18/18 04:00 96 02/18/18 03:44 16 02/18/18 03:15 97.4 99 16 100/57 (71) 100 02/18/18 00:00 98.2 100 18 92/63 (73) 98 02/17/18 23:00 103 02/17/18 20:45 18 02/17/18 20:16 98.0 18 92/63 (73) 02/17/18 19:00 103 02/17/18 16:00 98.0 86 18 104/59 (74) 94 02/17/18 15:00 101 02/17/18 13:59 104/71 (82) 02/17/18 11:00 99 02/17/18 10:42 97.5 18 93/72 (79) 02/17/18 10:00 56 . Laboratory Tests Test 02/16/18 20:50 02/18/18 06:23 White Blood Count 14.0 TH/MM3 13.1 TH/MM3 Red Blood Count 3.51 MIL/MM3 3.79 MIL/MM3 Hemoglobin 10.1 GM/DL 10.8 GM/DL Hematocrit 31.1 % 33.8 % Mean Corpuscular Volume 88.8 FL 89.2 FL Mean Corpuscular Hemoglobin 28.9 PG 28.6 PG Mean Corpuscular Hemoglobin Concent 32.5 % 32.0 % Red Cell Distribution Width 18.6 % 18.7 % Platelet Count 395 TH/MM3 401 TH/MM3 Mean Platelet Volume 7.1 FL 7.9 FL Neutrophils (%) (Auto) 87.6 % 87.3 % Lymphocytes (%) (Auto) 5.2 % 4.7 % Monocytes (%) (Auto) 5.3 % 6.6 % Eosinophils (%) (Auto) 1.3 % 1.1 % Basophils (%) (Auto) 0.6 % 0.3 % Neutrophils # (Auto) 12.3 TH/MM3 11.5 TH/MM3 Lymphocytes # (Auto) 0.7 TH/MM3 0.6 TH/MM3 Monocytes # (Auto) 0.7 TH/MM3 0.9 TH/MM3 Eosinophils # (Auto) 0.2 TH/MM3 0.2 TH/MM3 Basophils # (Auto) 0.1 TH/MM3 0.0 TH/MM3 CBC Comment DIFF FINAL AUTO DIFF Differential Comment Laboratory Tests Test 02/16/18 20:50 02/17/18 04:00 02/18/18 06:23 Blood Urea Nitrogen 35 MG/DL 27 MG/DL Creatinine 1.55 MG/DL 0.96 MG/DL Random Glucose 101 MG/DL 76 MG/DL Total Protein 6.5 GM/DL Albumin 2.4 GM/DL Calcium Level 8.3 MG/DL 8.0 MG/DL Alkaline Phosphatase 79 U/L Aspartate Amino Transf (AST/SGOT) 37 U/L Alanine Aminotransferase (ALT/SGPT) 27 U/L Total Bilirubin 0.3 MG/DL Sodium Level 136 MEQ/L 139 MEQ/L Potassium Level 4.5 MEQ/L 4.4 MEQ/L Chloride Level 101 MEQ/L 105 MEQ/L Carbon Dioxide Level 21.3 MEQ/L 24.6 MEQ/L Anion Gap 14 MEQ/L 9 MEQ/L Estimat Glomerular Filtration Rate 47 ML/MIN 81 ML/MIN Lactic Acid Level 2.6 mmol/L 1.4 mmol/L Lipase 92 U/L Microbiology Date/Time Source Procedure Growth Status 02/16/18 20:58 Blood Peripheral Aerobic Blood Culture - Preliminary NO GROWTH IN 1 DAY Resulted 02/16/18 20:58 Blood Peripheral Anaerobic Blood Culture - Preliminary NO GROWTH IN 1 DAY Resulted 02/16/18 20:45 Blood Peripheral Aerobic Blood Culture - Preliminary NO GROWTH IN 1 DAY Resulted 02/16/18 20:45 Blood Peripheral Anaerobic Blood Culture - Preliminary NO GROWTH IN 1 DAY Resulted 02/16/18 20:58 Urine Random Urine Urine Culture - Final 50-100,000 CFU/ML MIXED BONIFACIO... Complete Imaging Last Impressions Abdomen/Pelvis CT 02/16/18 0000 Signed Impressions: CONCLUSION: 1. Diffuse anasarca. 2. Abnormal fluid collection inside the rectum nonspecific, however infectious fluid collection could have this appearance and clinical correlation is sugges deondre. The exact etiology is not certain. 3. The stomach is distended with significant amount of stool throughout the co cinthya without signs of small bowel obstruction. Abdomen X-Ray 02/16/18 0000 Signed Impressions: CONCLUSION: Benign-appearing abdomen. Physical Exam GENERAL: This is a thin ill-appearing male patient, in no apparent distress. Awake and alert. Appears uncomfortable from rectal pain, standing resting forearms on window seal. SKIN: No rashes, ecchymoses or lesions. Cool and dry. HEAD: Atraumatic. Normocephalic. No temporal or scalp tenderness. EYES: Pupils equal round and reactive. Extraocular motions intact. No scleral icterus. No injection or drainage. ENT: Nose without bleeding or purulent drainage. Throat without erythema, tonsillar hypertrophy or exudate. Uvula midline. Airway patent. NECK: Trachea midline. No lymphadenopathy. Supple, nontender, no meningeal signs. CARDIOVASCULAR: Regular rate and rhythm without murmurs, gallops, or rubs. RESPIRATORY: Clear to auscultation. Breath sounds equal bilaterally. No wheezes , rales, or rhonchi. GASTROINTESTINAL: Abdomen soft, non-tender, nondistended. No hepato-splenomegaly , or palpable masses. No guarding. +Ileal Conduit with clear yellow urine in bag. +Colostomy LLQ Per rectal exam performed by Dr. Junior - large hard tumor almost circumferential, more right than left, and with the expression of large amounts of mucus but no evidence of pus or bogginess indicative of an anal abscess. MUSCULOSKELETAL: Extremities without clubbing or cyanosis. 2+ BLE pitting edema. No joint tenderness, effusion, or edema noted. No calf tenderness. NEUROLOGICAL: Awake and alert. Cranial nerves II through XII grossly intact. Motor and sensory grossly within normal limits. No focal neurologic findings appreciated. Normal speech. 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 Recommends tertiary care center for further evaluation/tx options. Continue on IV Cefepime Continue on po Flagyl Continue on po Diflucan Follow-up on all culture results Follow clinically (Ailx Fajardo) Remarks The exam, history, and the medical decision-making described in the above note were completed with the assistance of the mid-level provider. I reviewed and agree with the findings presented. I attest that I had a [id number] encounter with the patient on the same day, and personally performed and documented my assessment and findings in the medical record. Need to obtain and review medical records from [facility] to see if ID at saw patient and what was decided length and type of treatment. Also need to see if this was culture driven therapy or empiric therapy. Imaging, cultures, ID consult notes, hemonc notes needed from [facility] to make determination if treatment completed. Consult palliative care to address goals of therapy given recurrent bladder cancer. Will follow along. (Marilia Junior MD) Alix Fajardo Feb 18, 2018 09:58 Marilia Junior MD Feb 18, 2018 21:34
[2018-02-18] MEDS: CEFEPIME INJ 2,000 MG in SODIUM CHLORIDE 0.9% INJ 100 ML IV SCH ×2 (12:10→22:13)
[2018-02-18] MEDS: MORPHINE SULFATE 4 MG/ML INJ IV PUSH PRN ×2 (13:52→16:42)
[2018-02-18] MEDS: KETOROLAC TROMETHAMINE 30 MG/ML (IVP) VIAL IV PUSH SCH ×2 (14:00→16:42)
--- NOTE | 2018-02-18 14:04 | MB ---
cc: Liset Strange MD DATE: 02/18/2018 CHIEF COMPLAINT: 1. Locally recurrent bladder cancer. 2. Pelvic infection. HISTORY OF PRESENT ILLNESS: Mr. Longoria is a 57-year-old gentleman with a history of bladder cancer, known pelvic abscess, coronary artery disease, status post MA x 2, who presented to our emergency department on 02/16/2018 with progressively worsening pelvic pain. His cancer history began approximately 09/2016 when he was diagnosed with localized bladder cancer. He underwent radical cystectomy, prostatectomy with ileal conduit at [facility] in [place]. He reports that he received neoadjuvant chemotherapy and he also reports that he received radiation therapy at that time. He was treated under the direction of Dr. Yuri Heath, Dr. Esteban and Dr. Knox. Approximately 4-5 months ago, he began having rectal pain and was diagnosed with recurrence of malignancy in the pelvis, which was biopsied and found to be consistent with previous bladder cancer. He was treated with additional radiation therapy, complicated by colourethral fistula and he underwent further surgeries including pelvic washout and diverting colostomy. He is currently receiving additional chemotherapy under the care of Dr. Chau Khan at [facility]. He was recently admitted at [facility] in [facility] and he was found to have a pelvic infection and pelvic pubic symphysitis, osteomyelitis. He was being treated with long-term antibiotic therapy. He presents with worsening pain as well as a desire for a second opinion. He has been seen by Dr. Junior as well as our infectious disease team. He is currently on broad spectrum antibiotic therapy. DIAGNOSTIC STUDIES: Imaging studies, including CT scan of the abdomen and pelvis from 02/16/2018 showed liver, spleen, pancreas, kidneys and adrenals which are unremarkable. No evidence for any appreciable pathologic adenopathy, free fluid or bowel obstruction. Diffuse anasarca is present. The stomach is distended and measures 17.8 cm in size. Significant amount of stool is seen throughout the colon. Abdominal x-ray was a benign-appearing abdomen. Laboratory studies include white blood cell count 13.1; hemoglobin 10.8; and platelet count 401,000. Differential with elevated ANC at 11.5. Chemistry studies with creatinine of 0.96. PAST MEDICAL HISTORY: Bladder cancer. PAST SURGICAL HISTORY: 1. Radical cystoprostatectomy with ileal conduit. 2. Exploration with clean out of pelvis and diverting sigmoid colostomy. 3. Additional exploratory laparotomy for clean out of pelvic abscess. ALLERGIES: NONE. SOCIAL HISTORY denies current tobacco, alchohol, illegal drug use FAMILY HISTORY No family history of bladder cancer REVIEW OF SYSTEMS: As above in the HPI. All other review of systems negative. PHYSICAL EXAMINATION: GENERAL: Thin, chronically ill-appearing man, in no distress. HEENT: Head normocephalic, atraumatic. SKIN: Dry. RESPIRATORY: No respiratory distress. EXTREMITIES: With no edema. NEUROLOGIC: Grossly nonfocal. PSYCHIATRIC: Appropriate mood and affect. 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 He has been treated aggressively with chemotherapy, radiation therapy, surgery for local recurrence of disease with repeat radiation therapy as well as most recent chemotherapy under the direction of Dr. Chau Khan 3 weeks ago. Currently, he is being followed by the infectious disease team for further treatment of know osteomyelitis and pelvic abscess. He has been seen by colorectal surgery who recommends evaluation by specialist at tertiary care center. At this point in time, he will need to have control of infection prior to consideration of further chemo. We will also need to obtain records from [facility] as well as [facility] for most recent treatment. Agree with opinion at tertiary [facility]. Do agree that if nothing else that can be offered that hospice and palliative care would be an additional option. This was discussed with the patient. He would like to pursue aggressive options prior to moving to comfort measures only. MD LUANA Zuluaga/MANOJ , 01:20 PM , 02:03 PM BARTOLO
--- NOTE | 2018-02-18 18:17 | HHI.PR ---
Subjective Remarks 57-year-old male with history of bladder cancer who presents with chronic pelvic abscess and pelvis osteomyelitis. He is currently in intractable pain and spends most of his day on his feet due to inability to get comfortable while sitting or lying. Objective Vitals Vital Signs Date Time Temp Pulse Resp B/P (MAP) Pulse Ox O2 Delivery O2 Flow Rate FiO2 02/18/18 16:00 98.2 110 18 100/56 (71) 98 02/18/18 12:00 98.1 107 18 105/60 (75) 98 02/18/18 08:00 97.8 107 16 92/64 (73) 100 02/18/18 04:00 96 02/18/18 03:44 16 02/18/18 03:15 97.4 99 16 100/57 (71) 100 02/18/18 00:00 98.2 100 18 92/63 (73) 98 02/17/18 23:00 103 02/17/18 20:45 18 02/17/18 20:16 98.0 18 92/63 (73) 02/17/18 19:00 103 I/O 02/17/18 02/17/18 02/17/18 02/18/18 02/18/18 02/18/18 07:00 15:00 23:00 07:00 15:00 23:00 Intake Total 1850 ml 400 ml 500 ml 100 ml Output Total 702 ml Balance 1850 ml 400 ml -202 ml 100 ml Intake Oral 300 ml IV Total 1850 ml 100 ml 500 ml 100 ml Output Urine Total 700 ml Stool Total 2 ml # Voids 1 # Bowel Movements 0 Result Diagram: 02/18/18 0623 02/18/18 0623 Procedures GENERAL: Thin appearing patient, in pain SKIN: Warm and dry. HEAD: Normocephalic. EYES: No scleral icterus. No injection or drainage. NECK: Supple, trachea midline. No JVD or lymphadenopathy. CARDIOVASCULAR: Regular rate and rhythm without murmurs, gallops, or rubs. RESPIRATORY: Breath sounds equal bilaterally. No accessory muscle use. GASTROINTESTINAL: Abdomen soft, non-tender, nondistended. EXTREMITIES: No cyanosis, or edema. NEUROLOGICAL: Awake, alert, and oriented x 3. Non-focal. A/P Problem List: (1) Intractable pain ICD Code: R52 - Pain, unspecified (2) Pelvic abscess (3) Osteomyelitis of pelvis ICD Code: M86.9 - Osteomyelitis, unspecified (4) Bladder cancer ICD Code: C67.9 - Malignant neoplasm of bladder, unspecified Status: Chronic Assessment and Plan Pelvic abscess with pelvis osteomyelitis CT of the abdomen/pelvis shows areas suspicious for infection Continue vancomycin, cefepime, Flagyl Final blood cultures results pending Patient prefers aggressive measures at this time over palliative/hospice options Appreciate infectious disease consult Intractable pain Patient is currently on morphine and intermittent Dilaudid Toradol added today to provide anti-inflammatory relief given bone pain and/or swelling History of bladder cancer Continue outpatient follow-up with oncologist Coronary artery disease Continue metoprolol Anasarca Continue Lasix DVT prophylaxis Patient is ambulatory and at a bleeding risk due to undefined fluid collection in pelvis SCD Pio Singh MD Feb 18, 2018 18:17
[2018-02-18] MEDS ORDERED: methylPREDNISolone SOD SUCC 125 MG/2 ML VIAL IV ONE (18:30)
[2018-02-19] VITALS (7 sets, daily range): BP systolic 97–115; BP diastolic 55–69; PULSE 88–107; RESP 16–18; TEMP 97.5–97.9; O2SAT 96–100
[2018-02-19] MEDS: KETOROLAC TROMETHAMINE 30 MG/ML (IVP) VIAL IV PUSH SCH ×4 (00:35→22:30)
[2018-02-19] MEDS: HYDROmorphone HCL PF 2 MG/ML VIAL IV PUSH PRN ×6 (00:36→22:29)
[2018-02-19] MEDS: CEFEPIME INJ 2,000 MG in SODIUM CHLORIDE 0.9% INJ 100 ML IV SCH ×3 (02:39→20:32)
[2018-02-19] MEDS: MORPHINE SULFATE 8 MG/ML INJ IV PUSH PRN ×5 (02:40→20:33)
[2018-02-19] MEDS: metroNIDAZOLE 500 MG TAB PO SCH ×3 (04:53→22:30)
[2018-02-19] MEDS: SODIUM CHLORIDE 0.9% FLUSH 10 ML FLUSH IV FLUSH SCH ×2 (08:53→22:31)
[2018-02-19] MEDS: FLUCONAZOLE 100 MG TAB PO SCH (08:54)
[2018-02-19] MEDS: FUROSEMIDE 20 MG TAB PO SCH (08:54)
[2018-02-19] MEDS: GABAPENTIN 300 MG CAP PO SCH ×3 (08:54→18:18)
[2018-02-19] MEDS: METOPROLOL SUCCINATE 25 MG EXTENDED RELEASE TAB PO SCH (08:54)
[2018-02-19] MEDS ORDERED: methylPREDNISolone SOD SUCC 125 MG/2 ML VIAL IV PUSH ONE (10:45)
[2018-02-19] MEDS: fentaNYL 50 MCG/HR PATCH T-DERMAL SCH (13:14)
[2018-02-19 13:29] LABS: BASOPHIL # 0.1 TH/MM3 (0-0.2); BASOPHIL % 0.5 % (0.0-2.0); HEMATOCRIT 31.1 % (39.0-51.0); HEMOGLOBIN 9.8 GM/DL (13.0-17.0); LYMPH % 2.7 % (9.0-44.0); LYMPHOCYTE # 0.3 TH/MM3 (1.0-4.8); MEAN CELL VOLUME 88.9 FL (80.0-100.0); MEAN CORPUSCULAR HEMOGLOBIN 28.2 PG (27.0-34.0); MEAN CORPUSCULAR HGB CONC 31.7 % (32.0-36.0); MEAN PLATELET VOLUME 7.6 FL (7.0-11.0); MONO % 2.5 % (0.0-8.0); MONOCYTE # 0.3 TH/MM3 (0-0.9); NEUT % 94.3 % (16.0-70.0); PLATELET COUNT 404 TH/MM3 (150-450); RED CELL DISTRIBUTION WIDTH 18.8 % (11.6-17.2); WHITE BLOOD COUNT 12.7 TH/MM3 (4.0-11.0)
--- NOTE | 2018-02-19 16:10 | HHI.PR ---
Subjective Remarks Patient is up on his feet this morning, less distressed. He reports that the anti-inflammatory medicines seemed to relieve his pain better than the narcotics alone. Objective Vitals Vital Signs Date Time Temp Pulse Resp B/P (MAP) Pulse Ox O2 Delivery O2 Flow Rate FiO2 02/19/18 12:00 97.9 99 18 106/69 (81) 100 02/19/18 11:12 18 02/19/18 09:53 18 02/19/18 09:25 18 02/19/18 08:00 97.5 107 18 99/59 (72) 100 02/19/18 08:00 97 02/19/18 05:35 97.5 88 16 97/55 (69) 96 02/19/18 04:00 100 02/19/18 00:00 105 02/18/18 23:58 97.9 110 16 97/55 (69) 91 02/18/18 20:00 97.9 160 16 132/70 (90) 91 02/18/18 20:00 104 02/18/18 16:10 131 I/O 02/18/18 02/18/18 02/18/18 02/19/18 02/19/18 02/19/18 06:59 14:59 22:59 06:59 14:59 22:59 Intake Total 100 ml 535 ml 480 ml 720 ml Output Total 750 ml 350 ml Balance 100 ml 535 ml -270 ml 370 ml Intake Oral 480 ml 720 ml IV Total 100 ml 535 ml Output Urine Total 750 ml Stool Total 350 ml Result Diagram: 02/19/18 1232 02/18/18 0623 Objective Remarks GENERAL: Thin appearing patient, in pain SKIN: Warm and dry. HEAD: Normocephalic. EYES: No scleral icterus. No injection or drainage. NECK: Supple, trachea midline. No JVD or lymphadenopathy. CARDIOVASCULAR: Regular rate and rhythm without murmurs, gallops, or rubs. RESPIRATORY: Breath sounds equal bilaterally. No accessory muscle use. GASTROINTESTINAL: Abdomen soft, non-tender, nondistended. EXTREMITIES: No cyanosis, or edema. NEUROLOGICAL: Awake, alert, and oriented x 3. Non-focal. Procedures A/P Problem List: (1) Intractable pain ICD Code: R52 - Pain, unspecified (2) Pelvic abscess (3) Osteomyelitis of pelvis ICD Code: M86.9 - Osteomyelitis, unspecified (4) Bladder cancer ICD Code: C67.9 - Malignant neoplasm of bladder, unspecified Status: Chronic Assessment and Plan Pelvic abscess with pelvis osteomyelitis CT of the abdomen/pelvis shows areas suspicious for infection Continue vancomycin, cefepime, Flagyl Final blood cultures results pending Patient prefers aggressive measures at this time over palliative/hospice options Patient may benefit from tertiary care center due to difficulty with addressing the location of this infection Appreciate infectious disease consult Intractable pain Patient is currently on morphine and intermittent Dilaudid Toradol and Solu-Medrol added yesterday have provided some increased relief Fentanyl patch added for baseline coverage Solu-Medrol redosed today, Toradol scheduled Will follow renal function with a.m. labs Severe protein malnutrition Patient has had poor oral intake, poor sleep, chemotherapy for the past 7 months He is underweight and very weak Continue to encourage p.o. intake and supplementation with Ensure History of bladder cancer Continue outpatient follow-up with oncologist Coronary artery disease Continue metoprolol Anasarca Continue Lasix Likely secondary to spending 80% of the day and night on his feet Attempting to make him more comfortable with pain so that he can lie down and allow edema to lessen DVT prophylaxis We will begin heparin SCD Pio Singh MD Feb 19, 2018 16:10
[2018-02-19] MEDS ORDERED: PHARMACY ORDERED LAB ONE (16:45)
[2018-02-19] MEDS: HEPARIN SODIUM - SQ 10,000 UNITS/ML VIAL SQ SCH (18:19)
[2018-02-20] VITALS (9 sets, daily range): BP systolic 92–116; BP diastolic 57–77; PULSE 86–102; RESP 18–20; TEMP 97.3–97.6; O2SAT 100
[2018-02-20] MEDS: MORPHINE SULFATE 8 MG/ML INJ IV PUSH PRN ×5 (01:32→21:11)
[2018-02-20] MEDS: KETOROLAC TROMETHAMINE 30 MG/ML (IVP) VIAL IV PUSH SCH ×4 (02:36→20:01)
[2018-02-20] MEDS: HYDROmorphone HCL PF 2 MG/ML VIAL IV PUSH PRN ×4 (02:37→20:01)
[2018-02-20] MEDS: CEFEPIME INJ 2,000 MG in SODIUM CHLORIDE 0.9% INJ 100 ML IV SCH ×3 (02:37→20:01)
[2018-02-20] MEDS: metroNIDAZOLE 500 MG TAB PO SCH ×3 (05:39→21:11)
[2018-02-20] MEDS: HEPARIN SODIUM - SQ 10,000 UNITS/ML VIAL SQ SCH ×2 (05:39→18:32)
[2018-02-20 08:14] LABS: CREATININE 1.16 MG/DL (0.60-1.30)
[2018-02-20] MEDS: METOPROLOL SUCCINATE 25 MG EXTENDED RELEASE TAB PO SCH (08:21)
[2018-02-20] MEDS: FLUCONAZOLE 100 MG TAB PO SCH (08:21)
[2018-02-20] MEDS: GABAPENTIN 300 MG CAP PO SCH ×3 (08:22→18:31)
[2018-02-20] MEDS: FUROSEMIDE 20 MG TAB PO SCH (08:22)
[2018-02-20] MEDS: SODIUM CHLORIDE 0.9% FLUSH 10 ML FLUSH IV FLUSH SCH ×2 (08:23→20:02)
--- NOTE | 2018-02-20 15:26 | HHI.PR ---
Subjective Remarks 57-year-old male with a past medical history significant for bladder cancer, known pelvic abscess/infection and coronary disease status post [place] 2 presents to the emergency department for the evaluation of pelvic pain that is not improving. The patient has an oncologist and infectious disease specialist at [facility] however he states he wanted to come to [place] for second opinion as he is compliant with his medication and his pain is not improving. The patient underwent prostatectomy with ileal conduit performed at [facility] in September 2016. He is status post chemotherapy and radiation therapy that was complicated by a DVT. 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 Subsequently developed pyuria from the urethra and a CT scan done in September 2017 identified a fluid collection in the pelvis concerning for an abscess. The patient was treated in [facility] for approximately 3 months (discharged 3 weeks ago) where he was treated with Zosyn, oral Diflucan and oral Cipro. Patient was discharged on Flagyl and Cipro with which he reports compliance. Of note the patient reports he ran out of his pain medication approximately 1 week ago. Patient denies any chest pain or shortness of breath. No fevers/chills. Positive pelvic pain. No nausea/vomiting/diarrhea. No lateralizing signs/ symptoms. 6-1 57-year-old male with history of bladder cancer who presents with chronic pelvic abscess and pelvis osteomyelitis. He is currently in intractable pain and spends most of his day on his feet due to inability to get comfortable while sitting or lying. 6-2 Patient is up on his feet this morning, less distressed. He reports that the anti-inflammatory medicines seemed to relieve his pain better than the narcotics alone. 6-3 ANKIT RN AND PATIENT AND CM AND FAMILY SEEN BY ID AND ONCOLOGY AM LABS PAIN IS BETTER CONTROLLED Objective Vitals Vital Signs Date Time Temp Pulse Resp B/P (MAP) Pulse Ox O2 Delivery O2 Flow Rate FiO2 02/20/18 12:00 97.4 99 20 92/57 (69) 100 02/20/18 08:30 97.4 97 18 108/74 (85) 02/20/18 06:00 97.6 99 18 108/73 (85) 100 02/20/18 04:00 86 02/20/18 00:00 97.3 92 18 108/68 (81) 100 02/19/18 20:00 97.9 98 18 102/66 (78) 100 02/19/18 16:00 97.6 97 18 115/68 (84) 100 02/19/18 16:00 88 I/O 02/19/18 02/19/18 02/19/18 02/20/18 02/20/18 02/20/18 07:00 15:00 23:00 07:00 15:00 23:00 Intake Total 720 ml 660 ml 680 ml 100 ml Output Total 350 ml 650 ml 0 ml Balance 370 ml 10 ml 680 ml 100 ml Intake Oral 720 ml 560 ml 580 ml IV Total 100 ml 100 ml 100 ml Output Urine Total 650 ml 0 ml Stool Total 350 ml # Bowel Movements 0 Result Diagram: 02/19/18 1232 02/20/18 0723 Other Results Laboratory Tests Test 02/18/18 06:23 02/19/18 12:32 02/20/18 07:23 White Blood Count 13.1 TH/MM3 12.7 TH/MM3 Red Blood Count 3.79 MIL/MM3 3.50 MIL/MM3 Hemoglobin 10.8 GM/DL 9.8 GM/DL Hematocrit 33.8 % 31.1 % Mean Corpuscular Volume 89.2 FL 88.9 FL Mean Corpuscular Hemoglobin 28.6 PG 28.2 PG Mean Corpuscular Hemoglobin Concent 32.0 % 31.7 % Red Cell Distribution Width 18.7 % 18.8 % Platelet Count 401 TH/MM3 404 TH/MM3 Mean Platelet Volume 7.9 FL 7.6 FL Neutrophils (%) (Auto) 87.3 % 94.3 % Lymphocytes (%) (Auto) 4.7 % 2.7 % Monocytes (%) (Auto) 6.6 % 2.5 % Eosinophils (%) (Auto) 1.1 % 0.0 % Basophils (%) (Auto) 0.3 % 0.5 % Neutrophils # (Auto) 11.5 TH/MM3 12.0 TH/MM3 Lymphocytes # (Auto) 0.6 TH/MM3 0.3 TH/MM3 Monocytes # (Auto) 0.9 TH/MM3 0.3 TH/MM3 Eosinophils # (Auto) 0.2 TH/MM3 0.0 TH/MM3 Basophils # (Auto) 0.0 TH/MM3 0.1 TH/MM3 CBC Comment AUTO DIFF DIFF FINAL Differential Comment AUTO DIFF CONFIRMED Platelet Estimate NORMAL Platelet Morphology Comment CLUMPED Blood Urea Nitrogen 27 MG/DL Creatinine 0.96 MG/DL 1.16 MG/DL Random Glucose 76 MG/DL Calcium Level 8.0 MG/DL Sodium Level 139 MEQ/L Potassium Level 4.4 MEQ/L Chloride Level 105 MEQ/L Carbon Dioxide Level 24.6 MEQ/L Anion Gap 9 MEQ/L Estimat Glomerular Filtration Rate 81 ML/MIN 65 ML/MIN Imaging Last Impressions Abdomen/Pelvis CT 02/16/18 0000 Signed Impressions: CONCLUSION: 1. Diffuse anasarca. 2. Abnormal fluid collection inside the rectum nonspecific, however infectious fluid collection could have this appearance and clinical correlation is sugges deondre. The exact etiology is not certain. 3. The stomach is distended with significant amount of stool throughout the co cinthya without signs of small bowel obstruction. Abdomen X-Ray 02/16/18 0000 Signed Impressions: CONCLUSION: Benign-appearing abdomen. Objective Remarks GENERAL: Awake alert and oriented 3 talkative and cooperative SKIN: Warm and dry. HEAD: Atraumatic. Normocephalic. EYES: Pupils equal and round. No scleral icterus. No injection or drainage. ENT: No nasal bleeding or discharge. Mucous membranes pink and moist. NECK: Trachea midline. No JVD. CARDIOVASCULAR: Regular rate and rhythm. S1-S2 no S3 or S4 RESPIRATORY: No accessory muscle use. Clear to auscultation. Breath sounds equal bilaterally. GASTROINTESTINAL: Abdomen soft, non-tender, nondistended. Hepatic and splenic margins not palpable. Colostomy in place MUSCULOSKELETAL: Extremities without clubbing, cyanosis, or edema. No obvious deformities. NEUROLOGICAL: Awake and alert. No obvious cranial nerve deficits. Motor grossly within normal limits. 4 out of 5 muscle strength in the arms and legs. Normal speech. PSYCHIATRIC: Appropriate mood and affect; insight and judgment normal. Procedures NONE Medications and IVs Current Medications Sodium Chloride 1,000 ml @ 1,000 mls/hr Q1H IV Last administered on 02/16/18at 21:01; Start 02/16/18 at 20:31; Stop 02/16/18 at 21:30; Status DC Sodium Chloride (NS Flush) 2 ml UNSCH PRN IV FLUSH FLUSH AFTER USING IV ACCESS Last administered on 02/16/18at 21:01; Start 02/16/18 at 20:45; Stop 02/17/18 at 08:42; Status DC Sodium Chloride 500 ml @ 500 mls/hr BOLUS ONCE IV Last administered on at 22:36; Start 02/16/18 at 22:15; Stop 02/16/18 at 23:14; Status DC Cefepime HCl 2000 mg/Sodium Chloride 100 ml @ 200 mls/hr ONCE ONCE IV Last administered on 02/16/18at 22:45; Start 02/16/18 at 22:15; Stop 02/16/18 at 22:44 ; Status DC Vancomycin HCl 1000 mg/Sodium Chloride 250 ml @ 250 mls/hr ONCE ONCE IV Last administered on 02/16/18at 23:36; Start 02/16/18 at 22:15; Stop 02/16/18 at 23:14 ; Status DC Iohexol (Omnipaque 350 Inj) 80 ml STK-MED ONCE IVCONTRAST Last administered on 02/16/18at 19:11; Start 02/16/18 at 19:11; Stop 02/16/18 at 23:11; Status DC Sodium Chloride 1,000 ml @ 100 mls/hr Q10H IV Last administered on 02/18/18at 08 :46; Start 02/17/18 at 01:25; Stop 02/18/18 at 14:01; Status DC Sodium Chloride (NS Flush) 2 ml UNSCH PRN IV FLUSH FLUSH AFTER USING IV ACCESS ; Start 02/17/18 at 01:30 Sodium Chloride (NS Flush) 2 ml BID IV FLUSH Last administered on 02/20/18at 08: 23; Start 02/17/18 at 09:00 Acetaminophen (Tylenol) 650 mg Q4H PRN PO TEMP > 100.4; Start 02/17/18 at 01:30 Ondansetron HCl (Zofran Odt) 4 mg Q5H PRN PO NAUSEA OR VOMITING; Start at 01:45; Stop 02/17/18 at 01:45; Status DC Naloxone HCl (Narcan Inj) 0.4 mg UNSCH PRN IV PUSH SEE LABEL COMMENTS; Start at 01:30 Magnesium Hydroxide (Milk Of Magnesia Liq) 30 ml Q12H PRN PO Mild constipation ; Start 02/17/18 at 01:30 Sennosides (Senokot) 17.2 mg Q12H PRN PO Moderate constipation; Start 02/17/18 at 01:30 Bisacodyl (Dulcolax Supp) 10 mg DAILY PRN RECTAL SEVERE CONSITIPATION; Start at 01:30 Lactulose (Lactulose Liq) 30 ml DAILY PRN PO SEVERE CONSITIPATION; Start at 01:30 Pharmacy Profile Note 0 ml @ 0 mls/hr UNSCH OTHER ; Start 02/17/18 at 01:30; Stop 02/17/18 at 16:00; Status DC Cefepime HCl 2000 mg/Sodium Chloride 100 ml @ 200 mls/hr Q12H IV Last administered on 02/17/18at 22:57; Start 02/17/18 at 11:00; Stop 02/18/18 at 10:30 ; Status DC Furosemide (Lasix) 20 mg DAILY PO Last administered on 02/20/18at 08:22; Start at 09:00 Gabapentin (Neurontin) 300 mg TID PO Last administered on 02/20/18at 13:03; Start 02/17/18 at 09:00 Metoprolol Succinate (Toprol Xl) 25 mg DAILY PO Last administered on 02/20/18at 08:21; Start 02/17/18 at 09:00 Ondansetron HCl (Zofran Odt) 4 mg Q6H PRN PO NAUSEA OR VOMITING; Start at 01:45 Vancomycin HCl 1000 mg/Sodium Chloride 250 ml @ 250 mls/hr Q24H IV ; Start at 17:00; Stop 02/17/18 at 17:00; Status DC Miscellaneous Information ([facility] Ordered Lab Info) SPECIFIC LAB TO BE DRAWN: VANCO TROUGH DATE... ONCE ONCE .XX ; Start 02/19/18 at 16:45; Stop at 16:45; Status DC Sodium Chloride 500 ml @ 500 mls/hr BOLUS ONCE IV Last administered on at 17:59; Start 02/17/18 at 11:15; Stop 02/17/18 at 12:14; Status DC Morphine Sulfate (Morphine Inj) 2 mg Q4H PRN IV PUSH PAIN SCALE 1 TO 4; Start 02/17/18 at 11:15; Stop 02/17/18 at 11:26; Status DC Morphine Sulfate (Morphine Inj) 5 mg Q4H PRN IV PUSH PAIN SCALE 5 TO 10 Last administered on 02/20/18 10:51; Start 02/17/18 at 11:15 Hydromorphone HCl (Dilaudid Pf Inj) 1 mg ONCE ONCE IV PUSH ; Start 02/17/18 at 11:30; Stop 02/17/18 at 11:30; Status DC Hydromorphone HCl (Dilaudid Pf Inj) 1 mg Q4H PRN IV PUSH BREAKTHROUGH PAIN Last administered on 02/20/18 13:06; Start 02/17/18 at 11:30 Hydromorphone HCl (Dilaudid Pf Inj) 1 mg ONCE ONCE IV PUSH Last administered on 02/17/18 11:46; Start 02/17/18 at 11:30; Stop 02/17/18 at 11:31; Status DC Morphine Sulfate (Morphine Inj) 2 mg Q4H PRN IV PUSH PAIN SCALE 1 TO 4 Last administered on 02/18/18at 16:42; Start 02/17/18 at 11:30 Metronidazole (Flagyl) 500 mg Q8HR PO Last administered on 02/20/18 13:06; Start 02/17/18 at 16:00 Fluconazole (Diflucan) 100 mg DAILY PO Last administered on 02/20/18 08:21; Start 02/17/18 at 16:00 Cefepime HCl 2000 mg/Sodium Chloride 100 ml @ 200 mls/hr Q8H IV Last administered on 02/20/18 11:01; Start 02/18/18 at 11:00 Ketorolac Tromethamine (Toradol Inj) 30 mg Q6H IV PUSH Last administered on 02/20 13:03; Start 02/18/18 at 14:00; Stop 02/23/18 at 08:01 Methylprednisolone Sodium Succinate (SoluMEDROL INJ) 80 mg ONCE ONCE IV Last administered on 02/18/18 19:19; Start 02/18/18 at 18:30; Stop 02/18/18 at 18:31; Status DC Fentanyl (Duragesic 50 Mcg Patch.72 Hr) 1 patch Q3D T-DERMAL Last administered on 02/19/18 13:14; Start 02/19/18 at 10:00 Miscellaneous Information 1 Q3D T-DERMAL ; Start 02/22/18 at 10:00 Methylprednisolone Sodium Succinate (SoluMEDROL INJ) 125 mg ONCE ONCE IV PUSH Last administered on 02/19/18at 11:05; Start 02/19/18 at 10:45; Stop 02/19/18 at 10: 46; Status DC Heparin Sodium (Porcine) (Heparin Inj) 5,000 units Q12H SQ Last administered on 02/20/18at 05:39; Start 02/19/18 at 18:00 A/P Problem List: (1) Intractable pain ICD Code: R52 - Pain, unspecified (2) Pelvic abscess (3) Osteomyelitis of pelvis ICD Code: M86.9 - Osteomyelitis, unspecified (4) Bladder cancer ICD Code: C67.9 - Malignant neoplasm of bladder, unspecified Status: Chronic Assessment and Plan Pelvic abscess with pelvis osteomyelitis CT of the abdomen/pelvis shows areas suspicious for infection Continue vancomycin, cefepime, Flagyl Final blood cultures results pending Patient prefers aggressive measures at this time over palliative/hospice options Patient may benefit from tertiary care center due to difficulty with addressing the location of this infection Appreciate infectious disease consult Intractable pain Patient is currently on morphine and intermittent Dilaudid Toradol and Solu-Medrol added yesterday have provided some increased relief Fentanyl patch added for baseline coverage Solu-Medrol redosed today, Toradol scheduled Will follow renal function with a.m. labs Severe protein malnutrition Patient has had poor oral intake, poor sleep, chemotherapy for the past 7 months He is underweight and very weak Continue to encourage p.o. intake and supplementation with Ensure History of bladder cancer Continue outpatient follow-up with oncologist Coronary artery disease Continue metoprolol Anasarca Continue Lasix Likely secondary to spending 80% of the day and night on his feet Attempting to make him more comfortable with pain so that he can lie down and allow edema to lessen DVT prophylaxis We will begin heparin SCD Morales Nichols DO Feb 20, 2018 15:26
[2018-02-21] VITALS (10 sets, daily range): BP systolic 92–108; BP diastolic 57–75; PULSE 89–109; RESP 16–18; TEMP 97.3–97.9; O2SAT 96–100
[2018-02-21] MEDS: HYDROmorphone HCL PF 2 MG/ML VIAL IV PUSH PRN ×6 (00:40→23:23)
[2018-02-21] MEDS: KETOROLAC TROMETHAMINE 30 MG/ML (IVP) VIAL IV PUSH SCH ×4 (02:10→20:56)
[2018-02-21] MEDS: MORPHINE SULFATE 4 MG/ML INJ IV PUSH PRN (02:11)
[2018-02-21] MEDS: CEFEPIME INJ 2,000 MG in SODIUM CHLORIDE 0.9% INJ 100 ML IV SCH ×2 (02:11→10:27)
[2018-02-21] MEDS: HEPARIN SODIUM - SQ 10,000 UNITS/ML VIAL SQ SCH ×2 (06:09→17:07)
[2018-02-21] MEDS: MORPHINE SULFATE 8 MG/ML INJ IV PUSH PRN ×4 (06:09→20:55)
[2018-02-21] MEDS: metroNIDAZOLE 500 MG TAB PO SCH ×3 (06:09→20:57)
[2018-02-21] MEDS: FUROSEMIDE 20 MG TAB PO SCH (08:25)
[2018-02-21] MEDS: FLUCONAZOLE 100 MG TAB PO SCH (08:26)
[2018-02-21] MEDS: GABAPENTIN 300 MG CAP PO SCH ×3 (08:26→17:07)
[2018-02-21] MEDS: SODIUM CHLORIDE 0.9% FLUSH 10 ML FLUSH IV FLUSH SCH ×2 (08:28→20:56)
[2018-02-21] MEDS: METOPROLOL SUCCINATE 25 MG EXTENDED RELEASE TAB PO SCH (09:00)
[2018-02-21 09:30] LABS: AUTOMATED NEUTROPHIL # 11.9 TH/MM3 (1.8-7.7); BASOPHIL # 0.1 TH/MM3 (0-0.2); BASOPHIL % 0.4 % (0.0-2.0); EOSINOPHIL # 0.1 TH/MM3 (0-0.4); EOSINOPHIL % 1.1 % (0.0-4.0); HEMATOCRIT 32.8 % (39.0-51.0); HEMOGLOBIN 10.3 GM/DL (13.0-17.0); LYMPH % 5.2 % (9.0-44.0); LYMPHOCYTE # 0.7 TH/MM3 (1.0-4.8); MEAN CELL VOLUME 91.1 FL (80.0-100.0); MEAN CORPUSCULAR HEMOGLOBIN 28.6 PG (27.0-34.0); MEAN CORPUSCULAR HGB CONC 31.4 % (32.0-36.0); MEAN PLATELET VOLUME 7.5 FL (7.0-11.0); MONO % 4.5 % (0.0-8.0); MONOCYTE # 0.6 TH/MM3 (0-0.9); NEUT % 88.8 % (16.0-70.0); PLATELET COUNT 363 TH/MM3 (150-450); RED CELL DISTRIBUTION WIDTH 18.8 % (11.6-17.2); WHITE BLOOD COUNT 13.4 TH/MM3 (4.0-11.0)
[2018-02-21 09:53] LABS: ALBUMIN 2.6 GM/DL (3.4-5.0); ALT (GPT) 28 U/L (12-78); AST (GOT) 24 U/L (15-37); BICARBONATE 18.3 MEQ/L (21.0-32.0); BLOOD UREA NITROGEN 43 MG/DL (7-18); CHLORIDE 109 MEQ/L (98-107); CREATININE 1.15 MG/DL (0.60-1.30); GLOMERULAR FILTRATION RATE 66 ML/MIN (>89); GLUCOSE,RANDOM 74 MG/DL (74-106); MAGNESIUM 1.4 MG/DL (1.5-2.5); SODIUM (NA) 136 MEQ/L (136-145)
[2018-02-21 09:59] LABS: ALKALINE PHOSPHATASE 111 U/L (45-117); FREE T4 1.19 NG/DL (0.76-1.46); PHOSPHORUS 2.6 MG/DL (2.5-4.9); TOTAL BILIRUBIN ADULT 0.2 MG/DL (0.2-1.0); TOTAL PROTEIN 6.9 GM/DL (6.4-8.2)
--- NOTE | 2018-02-21 11:13 | PD.CONS ---
Consult Service Palliative Care . Consult Requested By Dr. Negar Junior . Primary Care Physician MICHAEL Perez . Reason for Consultation a. To assist with evaluation and management of symptoms including: pelvic/ rectal pain; bone pain b. To assist medical decision maker(s) with: better understanding of current medical conditions; weighing benefits/burdens of medical treatment options; making medical treatment decisions. . HPI History of Present Illness Mr. Longoria is an unfortuante 57 y/o male with a known history of bladder cancer; associated pelvic abscess; osteomyelitis; coronary artery disease with two recent MIs; who presented to the ED on 02/16/18 due to progressively worsening pain that could not be managed in the home setting. The patient's cancer history is well described in the note of Dr. Donna Junior from 02/17/18 .... The patient is an unfortunate 57-year-old male who was diagnosed with bladder cancer 4 years ago. He was initially treated at [facility] with a radical cystectomy and prostatectomy with ileal conduit. he continued with chemotherapy and radiation with 30 doses of radiation treatments at [facility]. He then switched his care to [facility] where he is taken care of by Dr. Khan, Dr. Chapman and Dr. Angeles. He began having rectal pain and was diagnosed with a recurrence of his cancer in the pelvis, which was biopsied and was consistent with his previous cancer. He was treated with 10 additional rounds of radiation and, post-treatment, he began having both air and stool come out his penis. 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 Lipscomb and Dr. Angeles cleaning out the pelvis and diverting with a left lateral diverting colostomy. At his most recent admission at [facility], he continued to have pelvic infection and was also felt to have a pelvic pubic symphysis osteomyelitis and was being treated with long-term antibiotics. In addition, he had 3 more rounds of chemotherapy and was scheduled for more chemotherapy ongoing. He ran out of pain medicine about 1 week ago and came to the hospital here at [facility] with a desire for a second opinion. At the time of admission, he had severe anal pain but denies fevers or chills, nausea, vomiting, diarrhea. He has no abdominal pain and has been stooling regularly through his stoma without difficulty. He does note that he intermittently feels the urge to pass stool from his rectum, sits on the commode and passes some mucus with some mild blood-tinging. In addition to the above cancer ulloa , the patient reports he has suffered two separate myocardial infarctions since the fall. He had the first on 2017 and was seen at [facility]. He reports he had the second NM about 3- 4 weeks ago. He tells me has had stenting after both events. He denies chest pain, palpitations in the last couple of weeks. He has had dependent edema since the first NM. He says he was told he had lost 25% of his heart function. Almost all the patient's pain is focused between the rectum and his scrotum. Pain levels reach #10 on most days. He has had difficulty lying down in almost any position for about 7 months. He stands much of the day. He tends to sleep in a kneeling position draping his chest over a table or other raised surface. He has had some relief with parenteral opiate agonists. None of the oral regimens he has been on at home have been adequate. Even the parenteral medications seem to lose effectiveness after about one and three-quarter hours. Function/Cognitive Trajectory The patient reports that prior to his cancer he was quite healthy and never really needed to see physicians. 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 He tells me he has lost about 45 pounds since his diagnosis of cancer. He has had difficulty sleeping because of the pain. He has had significant weakness. Appetite is poor. He ambulates without an assistive device. . Past Family Social History Coded Allergies: No Known Allergies (Verified Allergy, Unknown, 08/11/17) Past Medical History Bladder cancer Prostate cancer Colourethral fistula Hx of pelvic abscess Hx of pelvic pubic symphysis osteomyelitis CAD s/p NM x 2 and stent implantation Dyslipidemia Previous DVT . Past Surgical History * Radical cystoproctectomy with ileal conduit. * Exploration with clean out of pelvic abscess and diverting sigmoid colostomy. * Exploratory laparotomy again for clean-out of pelvic abscess. * Coronary artery stenting . Reported Medications Prehospitalization medications included the following: Gabapentin 300 Mg Cap 300 Mg PO TID Ciprofloxacin (Ciprofloxacin HCl) 500 Mg Tab 500 Mg PO TID Metoprolol Succinate ER 24 HR (Metoprolol Succinate) 25 Mg Tab 25 Mg PO DAILY Furosemide 20 Mg Tab 20 Mg PO DAILY Metronidazole 500 Mg Tab 500 Mg PO TID Patient had run out of his oral opioids. His recollection was that he was taking * oxycodone 5 mg tabs; 1 p.o. every 4 hours as needed. AND, he said he was taking... * Hydromorphone 2 mg tablet; one by mouth every 4 hours as needed He does not recall how much total opioid he was taking on a daily basis, but lets me know that none of it was effective at managing his pain. . Current Medications Medications (Trade) Dose Ordered Sig/Bruno Route Start Time Stop Time Status Last Admin (NS Flush) 2 ml UNSCH PRN IV FLUSH 02/17/18 01:30 (NS Flush) 2 ml BID IV FLUSH 02/17/18 09:00 02/21/18 08:28 (Tylenol) 650 mg Q4H PRN PO 02/17/18 01:30 (Narcan Inj) 0.4 mg UNSCH PRN IV PUSH 02/17/18 01:30 (Milk Of Magnesia Liq) 30 ml Q12H PRN PO 02/17/18 01:30 (Senokot) 17.2 mg Q12H PRN PO 02/17/18 01:30 (Dulcolax Supp) 10 mg DAILY PRN RECTAL 02/17/18 01:30 (Lactulose Liq) 30 ml DAILY PRN PO 02/17/18 01:30 (Lasix) 20 mg DAILY PO 02/17/18 09:00 02/21/18 08:25 (Neurontin) 300 mg TID PO 02/17/18 09:00 02/21/18 08:26 (Toprol Xl) 25 mg DAILY PO 02/17/18 09:00 02/20/18 08:21 (Zofran Odt) 4 mg Q6H PRN PO 02/17/18 01:45 (Morphine Inj) 5 mg Q4H PRN IV PUSH 02/17/18 11:15 02/21/18 10:27 (Dilaudid Pf Inj) 1 mg Q4H PRN IV PUSH 02/17/18 11:30 02/21/18 08:27 (Morphine Inj) 2 mg Q4H PRN IV PUSH 02/17/18 11:30 02/21/18 02:11 (Flagyl) 500 mg Q8HR PO 02/17/18 16:00 02/21/18 06:09 (Diflucan) 100 mg DAILY PO 02/17/18 16:00 02/21/18 08:26 Cefepime HCl 2000 mg/Sodium Chloride 100 ml @ 200 mls/hr Q8H IV 02/18/18 11:00 02/21/18 10:27 (Toradol Inj) 30 mg Q6H IV PUSH 02/18/18 14:00 02/23/18 08:01 02/21/18 08:28 (Duragesic 50 Mcg Patch.72 Hr) 1 patch Q3D T-DERMAL 02/19/18 10:00 02/19/18 13:14 Miscellaneous Information 1 Q3D T-DERMAL 02/22/18 10:00 (Heparin Inj) 5,000 units Q12H SQ 02/19/18 18:00 02/21/18 06:09 . Family History Patient is adopted. He does not know anything about family medical history. . Substance Use Tobacco: Smoked 1.25 ppd for most of adult life. Recently cut down to 6-8 cigarettes/day Alcohol: 2 beers on the weekend. No history of abuse Prescription med abuse: No known prescription med abuse. Illicits: Has been approved for medical marijuana. Says marijuana helps with pain and appetite. . Psychosocial History Patient is originally from [place]. He has lived in [place] since he has been in the third grade. The patient is a high school education. No experience. 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 The patient was once then . His ex- has since . The patient has 1 daughter from the marriage. She lives locally. They have infrequent contact. The patient has 1 sibling--a brother--who lives locally. They keep in touch. The patient's mother is alive and well. She also lives locally and is supportive. The patient's father of stroke related complications in July,. The patient had a girlfriend of 16 years. That relationship broke up about 4-5 weeks ago. The patient, therefore, has no one else at home. . Spiritual/Cultural Factors The patient describes himself as, "a believer." However, he does not belong to a local amelia group. 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 . Living Will: Completed, but not made available Health Care Surrogate: Completed, but not made available Durable Power of Balance Sheet Analyst: Never completed Date completed: The patient has completed an advanced directive in the past. He is unsure of the date. He wants to update the information as in the past he had designated his girlfriend as his healthcare surrogate. They have since broken up. Patient has been given new advanced directive forms to complete. . Health Care Surrogate(s): The patient tells me he is going to update his surrogate by designating his good friend (and also the head of ict in his shop) -- Dallintamera Davidson-- as his health care surrogate. . Documented care wishes: We currently have no written documentation of the patient's healthcare goals and preferences. . Today's verbally stated goals: Patient tells me he is not ready to give up and . He says, "I am too young to be thinking about pushing up daisies." He has been told by other consultants here that there may be help for him at a tertiary care center. He is interested in pursuing that option. He is not interested in considering a transition to comfort care at this time. On the other hand, the patient tells me He does not want to be living in a vegetative state. He also tells me that if and when the doctors tell him that he has little hope for recovery, he would not want to be resuscitated at that time. . Family/friends goals: No family/friends available at this time. . Ethical and Legal Issues Patient is currently capacitated to make his own healthcare decisions. Should he become incapacitated, he has told me verbally that he would like his friend Dallin Lety to serve as his healthcare surrogate. . Physical Exam Vital Signs Date Time Temp Pulse Resp B/P (MAP) Pulse Ox O2 Delivery O2 Flow Rate FiO2 02/21/18 08:01 97.3 102 17 95/69 (78) 98 02/21/18 04:00 97.9 99 18 99/69 (79) 100 02/21/18 01:15 89 02/21/18 00:00 97.7 104 17 108/75 (86) 96 02/20/18 20:00 97.5 98 18 105/66 (79) 100 02/20/18 20:00 102 02/20/18 16:00 99 02/20/18 16:00 97.6 96 20 116/77 (90) 100 02/20/18 15:00 95 02/20/18 12:00 97.4 99 20 92/57 (69) 100 . Exam CONSTITUTIONAL/GENERAL: This is an adequately nourished patient. The patient remains standing through the entire history and exam. He tells me that sitting down or lying in the bed is just too painful. He is alert, oriented, and answers all questions appropriately. He asked for additional parenteral pain medication at the time of my visit. TUBES/LINES/DRAINS: Peripheral IV; ileal conduit SKIN: No jaundice, rashes, or lesions. No wounds seen anteriorly. Skin temperature appropriate. Not diaphoretic. HEAD: Atraumatic. Normocephalic. EYES: Pupils equal and round and reactive. Extraocular motions intact. No scleral icterus. No injection or drainage. Fundi not examined. ENT: Hearing grossly normal. Nose without bleeding or purulent drainage. Throat without visible erythema, exudates, masses, or lesions. NECK: Trachea midline. Supple, nontender. No palpable thyroid enlargement or nodularity. CARDIOVASCULAR: Regular rate and rhythm without murmurs, gallops, or rubs. No JVD. Peripheral pulses symmetric. RESPIRATORY/CHEST: Symmetric, unlabored respirations. Clear to auscultation. Breath sounds equal bilaterally. No wheezes, rales, or rhonchi. GASTROINTESTINAL: Abdomen soft, non-tender, nondistended. No hepato-splenomegaly , or palpable masses. No guarding. Bowel sounds present. Ileal conduit GENITOURINARY: Without palpable bladder distension. MUSCULOSKELETAL: Extremities without clubbing, cyanosis. There is 3-4+ tense edema in both lower extremities. No calf tenderness. No mottling or clubbing. LYMPHATICS: No palpable cervical or supraclavicular adenopathy. NEUROLOGICAL: Awake and alert. Motor and sensory grossly within normal limits. Follows commands. Cognitively sharp. Moves all extremities. PSYCHIATRIC: No obvious anxiety/depression. Patient expresses a great deal of anger regarding some of his medical care to date. No apparent hallucinations or other psychotic thought process. . Diagnostic Tests Laboratory Laboratory Tests Test 6/2/18 12:32 02/20/18 07:23 02/21/18 09:00 White Blood Count 12.7 TH/MM3 (4.0-11.0) 13.4 TH/MM3 (4.0-11.0) Red Blood Count 3.50 MIL/MM3 (4.50-5.90) 3.60 MIL/MM3 (4.50-5.90) Hemoglobin 9.8 GM/DL (13.0-17.0) 10.3 GM/DL (13.0-17.0) Hematocrit 31.1 % (39.0-51.0) 32.8 % (39.0-51.0) Mean Corpuscular Volume 88.9 FL (80.0-100.0) 91.1 FL (80.0-100.0) Mean Corpuscular Hemoglobin 28.2 PG (27.0-34.0) 28.6 PG (27.0-34.0) Mean Corpuscular Hemoglobin Concent 31.7 % (32.0-36.0) 31.4 % (32.0-36.0) Red Cell Distribution Width 18.8 % (11.6-17.2) 18.8 % (11.6-17.2) Platelet Count 404 TH/MM3 (150-450) 363 TH/MM3 (150-450) Mean Platelet Volume 7.6 FL (7.0-11.0) 7.5 FL (7.0-11.0) Neutrophils (%) (Auto) 94.3 % (16.0-70.0) 88.8 % (16.0-70.0) Lymphocytes (%) (Auto) 2.7 % (9.0-44.0) 5.2 % (9.0-44.0) Monocytes (%) (Auto) 2.5 % (0.0-8.0) 4.5 % (0.0-8.0) Eosinophils (%) (Auto) 0.0 % (0.0-4.0) 1.1 % (0.0-4.0) Basophils (%) (Auto) 0.5 % (0.0-2.0) 0.4 % (0.0-2.0) Neutrophils # (Auto) 12.0 TH/MM3 (1.8-7.7) 11.9 TH/MM3 (1.8-7.7) Lymphocytes # (Auto) 0.3 TH/MM3 (1.0-4.8) 0.7 TH/MM3 (1.0-4.8) Monocytes # (Auto) 0.3 TH/MM3 (0-0.9) 0.6 TH/MM3 (0-0.9) Eosinophils # (Auto) 0.0 TH/MM3 (0-0.4) 0.1 TH/MM3 (0-0.4) Basophils # (Auto) 0.1 TH/MM3 (0-0.2) 0.1 TH/MM3 (0-0.2) CBC Comment DIFF FINAL DIFF FINAL Differential Comment Creatinine 1.16 MG/DL (0.60-1.30) 1.15 MG/DL (0.60-1.30) Estimat Glomerular Filtration Rate 65 ML/MIN (>89) 66 ML/MIN (>89) Blood Urea Nitrogen 43 MG/DL (7-18) Random Glucose 74 MG/DL (74-106) Total Protein 6.9 GM/DL (6.4-8.2) Albumin 2.6 GM/DL (3.4-5.0) Calcium Level 8.0 MG/DL (8.5-10.1) Phosphorus Level 2.6 MG/DL (2.5-4.9) Magnesium Level 1.4 MG/DL (1.5-2.5) Alkaline Phosphatase 111 U/L (45-117) Aspartate Amino Transf (AST/SGOT) 24 U/L (15-37) Alanine Aminotransferase (ALT/SGPT) 28 U/L (12-78) Total Bilirubin 0.2 MG/DL (0.2-1.0) Sodium Level 136 MEQ/L (136-145) Potassium Level 5.6 MEQ/L (3.5-5.1) Chloride Level 109 MEQ/L (98-107) Carbon Dioxide Level 18.3 MEQ/L (21.0-32.0) Anion Gap 9 MEQ/L (5-15) Free Thyroxine 1.19 NG/DL (0.76-1.46) Thyroid Stimulating Hormone 3rd Gen 6.830 uIU/ML (0.358-3.740) . Result Diagram: 02/21/18 0900 02/21/18 0900 Microbiology Microbiology Date/Time Source Procedure Growth Status 02/16/18 20:58 Blood Peripheral Aerobic Blood Culture - Final NO GROWTH IN 5 DAYS Complete 02/16/18 20:58 Blood Peripheral Anaerobic Blood Culture - Final NO GROWTH IN 5 DAYS Complete 02/16/18 20:58 Urine Random Urine Urine Culture - Final 50-100,000 CFU/ML MIXED BONIFACIO... Complete . Imaging Last Impressions Abdomen/Pelvis CT 02/16/18 0000 Signed Impressions: CONCLUSION: 1. Diffuse anasarca. 2. Abnormal fluid collection inside the rectum nonspecific, however infectious fluid collection could have this appearance and clinical correlation is sugges deondre. The exact etiology is not certain. 3. The stomach is distended with significant amount of stool throughout the co cinthya without signs of small bowel obstruction. Abdomen X-Ray 02/16/18 0000 Signed Impressions: CONCLUSION: Benign-appearing abdomen. . Patient/Family Conference Present at Family Conference: Patient only. . Family Conference Time (mins): 40 Family Conference Location: Bedside Issues Discussed: * Palliative care role, purpose, approach * Additional medical, psychosocial, and spiritual history * Patients general health, functional status, and cognitive changes in the months leading up to the current hospitalization * Patient understanding of the current medical problems * Patient understanding of prognosis * Patients goals of medical treatment * Current medical treatment options * Questions answered to the best of my ability * Palliative care contact information provided Discussed the importance of completing an updated advance directive. Patient voluntarily discussed goals. New living will / health care surrogate designation forms provided and explained. Total time spent on advance care planning was about 20 minutes. . Assessment and Plan Disease Oriented Problem List: (1) Small cell carcinoma of bladder Comment: Now with associated pelvic abscess; osteomyelitis of the pubic symphysis; and likely pulmonary mets. . (2) Coronary artery disease Comment: Two recent MIs since Jul 2017 with stenting. . (3) Recent myocardial infarction Comment: MIs in Jul 2017 and again in December 2017. . 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 Father in 2016. Mostly estranged from his one daughter. His local brother and mother are his main psychosocial support. 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 Spiritual: "I'm a believer." Not a member of any local amelia group. 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 Legal: Wants to re-write living will now that he has broken up from his shelter girl friend. Ethical issues impacting care: Currently capacitated to make his own health care decision. . Important Contacts * Ari Longoria (brother) [phone] * Dallin Davidson (friend/ verbally requested HCS): . Prognosis This unfortunate man will probably require further complicated surgery to help eradicate infection. He is at high surgical risk because of the recent two heart attacks. Colorectal surgery has indicated that surgery, if an option, would need to be addressed in a tertiary medical center. Pt has had maximal radiation so additional chemotherapy remains his only option for cancer directed therapy. Patient reports cancer is now spread to lung. He is currently a poor candidate for chemotherapy because of his infection and cachexia. Without aggressive treatment directed at eradicating the infection and addressing his cancer, life expectancy may be in the order of weeks to months. Should the patient opt to forego further aggressive care or should there be no further options available at a tertiary center, he would be a candidate for hospice care. . Code Status: Full Code Plan == Code Status: FULL CODE per discussion of 02/21/18 == Decision Making: Pt is currently capacitated to make his own health care decisions. Should he become incapacitated he has verbally told me he would want his friend (and main certified marine mechanic in his shop) -- Dallin Davidson -- to be his health care surrogate. I have given him paper work to complete his advance directive. == Goals of medical treatment: Pt is young, determined to fight, and wants to be evaluated in a tertiary care medical center to see if there is more that can be done to prolong his life. He says, "I am too young to be pushing up daisies. " == Symptoms: * Pain: Pain is primarily in the perineal area between rectum and scrotum. Pain reaches #10 level daily and is described as stabbing. It is much worse when he attempts to lie down and he therefore stays standing or in a kneeling position day and night. Pain has been helped by iv opioids. He has not found an oral regimen that has been helpful but equianalgesic doses appear to have been much lower than inpatient parenteral doses. Patient feels the addition of steroids has made a big difference in his pain control. Pain return in less than two hours with IV opioids. Patient has been approved for medical marijuana and says that marijuana helps with pain and appetite. * Edema: Patient reports that edema has only begun after his second NM about one month ago. He says the direct marketing specialist told him he lost 26% of his cardiac output. * Cachexia: Has lost 45 lbs since diagnosis. Steroids helping with appetite. PLAN == Provided patient with advance directive document to complete. He wanted to replace out-of-date ones which listed an ex-girlfriend as his health care surrogate. == Current prn opioid orders include morphine sulfate 2 mg iv q 4 (6 oral morphine equivalents)' 5 mg iv morphine q 4 (15 oral morphine equivalents); and hydromorphone 1 mg iv q 4 hours (20 oral morphine equivalents. ). He is also on a fentanyl patch at 50 mcg / hr. Over the last 24 hours he has received 5 doses of 1 mg hydromorphone; 1 dose of 2 mg morphine sulfate; and 4 doses of 5 mg morphine sulfate. Total prn opiates comes to 172 mg of oral morphine equivalents over and above his 50 mcg fenantyl patch. He is not a candidate for methadone given his recent MIs. Probably his best option for long acting medication is increase fentanyl patch. Adding an additional 50 mcg / hr to his fentanyl patch, would replace about 100 oral morphine equivalents of the 172 he is now using PRN. Since he is not really using the 2 mg of iv morphine, would discontinue this. May want to use the 5 mg iv morphine for pain levels 1-5 and the 1 mg of iv hydromorphone for pain levels 6 -10. May also want to allow prn dosing more frequently -- up to q 2 hours. == If we can get the pain controlled well enough to allow him to lie down and elevate the legs, the edema might improve. Also, may want to consider dexmamethasone as the steroid -- it has less mineralocorticoid effects and less likely to cause fluid retention in this patient with edema and anasarca. == Patient will require IV antibiotics and parenteral opioids. Peripheral IVs are failing. May want to consider a PICC line. == Case management working to find accepting tertiary care center. We will focus on symptom management and infection control pending transfer. == If no transfer is possible, or if tertiary [facility] center has nothing more to offer, we will need to re-address goals including code status and hospice care. == He has been diagnosed with cancer recurrence, suffered two MIs, lost his father, and had a break-up of a 16 year relationships all since July. Palliative care will try to offer additional psychosocial support. == Palliative care will continue to follow to assist with symptom management and further clarify goals of medical treatment as the clinical course evolves. . Time Spent Total Floor Time (mins): 95 (Total floor time included chart review; patient exam; in person discussion with Dr. Petty; above referenced patient discussion ; advance care planning as noted above; and documentation. ) Face to Face Time (mins): 40 >50% Counseling/Coord of Care: Yes Thank you for the opportunity to participate in the care of Mr. Longoria. . Attestation To help prompt me to consider important information that might be impacting today's encounter and assessment, information from prior notes written by myself or my colleagues may have been "brought forward" into today's note. My signature on this note, however, is an attestation that I personally performed the exam, history, and/or decision-making noted today, and, unless otherwise indicated, the interactions with patient, family, and staff as well as the review of records all occurred today. I also attest that the listed assessment and stated plan reflect my best clinical judgment today based on the combination of historical information, prior notes, and today's exam/ interactions. When time spent is documented, it refers only to time spent today by the signer, or if indicated, combined time spent today by collaborating physician/nurse practitioner. . Mario Driver MD Feb 21, 2018 11:13
--- NOTE | 2018-02-21 11:32 | HHI.PR ---
Subjective Remarks 57-year-old male with a past medical history significant for bladder cancer, known pelvic abscess/infection and coronary disease status post [place] 2 presents to the emergency department for the evaluation of pelvic pain that is not improving. The patient has an oncologist and infectious disease specialist at [facility] however he states he wanted to come to [place] for second opinion as he is compliant with his medication and his pain is not improving. The patient underwent prostatectomy with ileal conduit performed at [facility] in September 2016. He is status post chemotherapy and radiation therapy that was complicated by a DVT. 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 Subsequently developed pyuria from the urethra and a CT scan done in September 2017 identified a fluid collection in the pelvis concerning for an abscess. The patient was treated in [facility] [place] for approximately 3 months (discharged 3 weeks ago) where he was treated with Zosyn, oral Diflucan and oral Cipro. Patient was discharged on Flagyl and Cipro with which he reports compliance. Of note the patient reports he ran out of his pain medication approximately 1 week ago. Patient denies any chest pain or shortness of breath. No fevers/chills. Positive pelvic pain. No nausea/vomiting/diarrhea. No lateralizing signs/ symptoms. 6-1 57-year-old male with history of bladder cancer who presents with chronic pelvic abscess and pelvis osteomyelitis. He is currently in intractable pain and spends most of his day on his feet due to inability to get comfortable while sitting or lying. 6-2 Patient is up on his feet this morning, less distressed. He reports that the anti-inflammatory medicines seemed to relieve his pain better than the narcotics alone. 6-3 DW RN AND PATIENT AND CM AND FAMILY SEEN BY ID AND ONCOLOGY AM LABS PAIN IS BETTER CONTROLLED 6-4 NEEDS PICC LINE FOR ACCESS DW RN AND PT AND CM AND PALLIATIVE CARE STATES HE STILL NEEDS THE IV PAIN MEDICATIONS FOR PAIN CONTROL MAY NEED TRANSFER TO TERTIARY CENTER SINCE CRS WILL NOT DO SURGERY HERE Objective Vitals Vital Signs Date Time Temp Pulse Resp B/P (MAP) Pulse Ox O2 Delivery O2 Flow Rate FiO2 02/21/18 10:47 94 02/21/18 08:01 97.3 102 17 95/69 (78) 98 02/21/18 04:00 97.9 99 18 99/69 (79) 100 02/21/18 01:15 89 6/4/18 00:00 97.7 104 17 108/75 (86) 96 02/20/18 20:00 97.5 98 18 105/66 (79) 100 02/20/18 20:00 102 02/20/18 16:00 99 02/20/18 16:00 97.6 96 20 116/77 (90) 100 02/20/18 15:00 95 02/20/18 12:00 97.4 99 20 92/57 (69) 100 I/O 02/20/18 02/20/18 02/20/18 02/21/18 02/21/18 02/21/18 06:59 14:59 22:59 06:59 14:59 22:59 Intake Total 680 ml 100 ml 580 ml 340 ml Output Total 0 ml 500 ml Balance 680 ml 100 ml 80 ml 340 ml Intake Oral 580 ml 480 ml 240 ml IV Total 100 ml 100 ml 100 ml 100 ml Output Urine Total 0 ml 500 ml # Bowel Movements 0 Result Diagram: 02/21/18 0900 02/21/18 0900 Other Results Laboratory Tests Test 02/19/18 12:32 02/20/18 07:23 02/21/18 09:00 White Blood Count 12.7 TH/MM3 13.4 TH/MM3 Red Blood Count 3.50 MIL/MM3 3.60 MIL/MM3 Hemoglobin 9.8 GM/DL 10.3 GM/DL Hematocrit 31.1 % 32.8 % Mean Corpuscular Volume 88.9 FL 91.1 FL Mean Corpuscular Hemoglobin 28.2 PG 28.6 PG Mean Corpuscular Hemoglobin Concent 31.7 % 31.4 % Red Cell Distribution Width 18.8 % 18.8 % Platelet Count 404 TH/MM3 363 TH/MM3 Mean Platelet Volume 7.6 FL 7.5 FL Neutrophils (%) (Auto) 94.3 % 88.8 % Lymphocytes (%) (Auto) 2.7 % 5.2 % Monocytes (%) (Auto) 2.5 % 4.5 % Eosinophils (%) (Auto) 0.0 % 1.1 % Basophils (%) (Auto) 0.5 % 0.4 % Neutrophils # (Auto) 12.0 TH/MM3 11.9 TH/MM3 Lymphocytes # (Auto) 0.3 TH/MM3 0.7 TH/MM3 Monocytes # (Auto) 0.3 TH/MM3 0.6 TH/MM3 Eosinophils # (Auto) 0.0 TH/MM3 0.1 TH/MM3 Basophils # (Auto) 0.1 TH/MM3 0.1 TH/MM3 CBC Comment DIFF FINAL DIFF FINAL Differential Comment Creatinine 1.16 MG/DL 1.15 MG/DL Estimat Glomerular Filtration Rate 65 ML/MIN 66 ML/MIN Blood Urea Nitrogen 43 MG/DL Random Glucose 74 MG/DL Total Protein 6.9 GM/DL Albumin 2.6 GM/DL Calcium Level 8.0 MG/DL Phosphorus Level 2.6 MG/DL Magnesium Level 1.4 MG/DL Alkaline Phosphatase 111 U/L Aspartate Amino Transf (AST/SGOT) 24 U/L Alanine Aminotransferase (ALT/SGPT) 28 U/L Total Bilirubin 0.2 MG/DL Sodium Level 136 MEQ/L Potassium Level 5.6 MEQ/L Chloride Level 109 MEQ/L Carbon Dioxide Level 18.3 MEQ/L Anion Gap 9 MEQ/L Free Thyroxine 1.19 NG/DL Thyroid Stimulating Hormone 3rd Gen 6.830 uIU/ML Imaging Last Impressions Abdomen/Pelvis CT 02/16/18 Signed Impressions: CONCLUSION: 1. Diffuse anasarca. 2. Abnormal fluid collection inside the rectum nonspecific, however infectious fluid collection could have this appearance and clinical correlation is sugges deondre. The exact etiology is not certain. 3. The stomach is distended with significant amount of stool throughout the co cinthya without signs of small bowel obstruction. Abdomen X-Ray 02/16/18 Signed Impressions: CONCLUSION: Benign-appearing abdomen. Objective Remarks GENERAL: Awake alert and oriented 3 talkative and cooperative SKIN: Warm and dry. HEAD: Atraumatic. Normocephalic. EYES: Pupils equal and round. No scleral icterus. No injection or drainage. ENT: No nasal bleeding or discharge. Mucous membranes pink and moist. NECK: Trachea midline. No JVD. CARDIOVASCULAR: Regular rate and rhythm. S1-S2 no S3 or S4 RESPIRATORY: No accessory muscle use. Clear to auscultation. Breath sounds equal bilaterally. GASTROINTESTINAL: Abdomen soft, non-tender, nondistended. Hepatic and splenic margins not palpable. Colostomy in place MUSCULOSKELETAL: Extremities without clubbing, cyanosis, or edema. No obvious deformities. NEUROLOGICAL: Awake and alert. No obvious cranial nerve deficits. Motor grossly within normal limits. 4 out of 5 muscle strength in the arms and legs. Normal speech. PSYCHIATRIC: Appropriate mood and affect; insight and judgment normal. Procedures NONE Medications and IVs Current Medications Sodium Chloride 1,000 ml @ 1,000 mls/hr Q1H IV Last administered on 02/16/18at 21:01; Start 02/16/18 at 20:31; Stop 02/16/18 at 21:30; Status DC Sodium Chloride (NS Flush) 2 ml UNSCH PRN IV FLUSH FLUSH AFTER USING IV ACCESS Last administered on 02/16/18at 21:01; Start 02/16/18 at 20:45; Stop 02/17/18 at 08:42; Status DC Sodium Chloride 500 ml @ 500 mls/hr BOLUS ONCE IV Last administered on at 22:36; Start 02/16/18 at 22:15; Stop 02/16/18 at 23:14; Status DC Cefepime HCl 2000 mg/Sodium Chloride 100 ml @ 200 mls/hr ONCE ONCE IV Last administered on 02/16/18at 22:45; Start 02/16/18 at 22:15; Stop 02/16/18 at 22:44 ; Status DC Vancomycin HCl 1000 mg/Sodium Chloride 250 ml @ 250 mls/hr ONCE ONCE IV Last administered on 02/16/18at 23:36; Start 02/16/18 at 22:15; Stop 02/16/18 at 23:14 ; Status DC Iohexol (Omnipaque 350 Inj) 80 ml STK-MED ONCE IVCONTRAST Last administered on 02/16/18at 19:11; Start 02/16/18 at 19:11; Stop 02/16/18 at 23:11; Status DC Sodium Chloride 1,000 ml @ 100 mls/hr Q10H IV Last administered on 02/18/18at 08 :46; Start 02/17/18 at 01:25; Stop 02/18/18 at 14:01; Status DC Sodium Chloride (NS Flush) 2 ml UNSCH PRN IV FLUSH FLUSH AFTER USING IV ACCESS ; Start 02/17/18 at 01:30 Sodium Chloride (NS Flush) 2 ml BID IV FLUSH Last administered on 02/21/18at 08: 28; Start 02/17/18 at 09:00 Acetaminophen (Tylenol) 650 mg Q4H PRN PO TEMP > 100.4; Start 02/17/18 at 01:30 Ondansetron HCl (Zofran Odt) 4 mg Q5H PRN PO NAUSEA OR VOMITING; Start at 01:45; Stop 02/17/18 at 01:45; Status DC Naloxone HCl (Narcan Inj) 0.4 mg UNSCH PRN IV PUSH SEE LABEL COMMENTS; Start at 01:30 Magnesium Hydroxide (Milk Of Magnesia Liq) 30 ml Q12H PRN PO Mild constipation ; Start 02/17/18 at 01:30 Sennosides (Senokot) 17.2 mg Q12H PRN PO Moderate constipation; Start 02/17/18 at 01:30 Bisacodyl (Dulcolax Supp) 10 mg DAILY PRN RECTAL SEVERE CONSITIPATION; Start at 01:30 Lactulose (Lactulose Liq) 30 ml DAILY PRN PO SEVERE CONSITIPATION; Start at 01:30 Pharmacy Profile Note 0 ml @ 0 mls/hr UNSCH OTHER ; Start 02/17/18 at 01:30; Stop 02/17/18 at 16:00; Status DC Cefepime HCl 2000 mg/Sodium Chloride 100 ml @ 200 mls/hr Q12H IV Last administered on 02/17/18at 22:57; Start 02/17/18 at 11:00; Stop 02/18/18 at 10:30 ; Status DC Furosemide (Lasix) 20 mg DAILY PO Last administered on 02/21/18at 08:25; Start at 09:00 Gabapentin (Neurontin) 300 mg TID PO Last administered on 02/21/18at 08:26; Start 02/17/18 at 09:00 Metoprolol Succinate (Toprol Xl) 25 mg DAILY PO Last administered on 02/20/18at 08:21; Start 02/17/18 at 09:00 Ondansetron HCl (Zofran Odt) 4 mg Q6H PRN PO NAUSEA OR VOMITING; Start at 01:45 Vancomycin HCl 1000 mg/Sodium Chloride 250 ml @ 250 mls/hr Q24H IV ; Start at 17:00; Stop 02/17/18 at 17:00; Status DC Miscellaneous Information ([facility] Ordered Lab Info) SPECIFIC LAB TO BE DRAWN: VANCO TROUGH DATE... ONCE ONCE .XX ; Start 02/19/18 at 16:45; Stop at 16:45; Status DC Sodium Chloride 500 ml @ 500 mls/hr BOLUS ONCE IV Last administered on at 17:59; Start 02/17/18 at 11:15; Stop 02/17/18 at 12:14; Status DC Morphine Sulfate (Morphine Inj) 2 mg Q4H PRN IV PUSH PAIN SCALE 1 TO 4; Start 02/17/18 at 11:15; Stop 02/17/18 at 11:26; Status DC Morphine Sulfate (Morphine Inj) 5 mg Q4H PRN IV PUSH PAIN SCALE 5 TO 10 Last administered on 02/21/18at 10:27; Start 02/17/18 at 11:15 Hydromorphone HCl (Dilaudid Pf Inj) 1 mg ONCE ONCE IV PUSH ; Start 02/17/18 at 11:30; Stop 02/17/18 at 11:30; Status DC Hydromorphone HCl (Dilaudid Pf Inj) 1 mg Q4H PRN IV PUSH BREAKTHROUGH PAIN Last administered on 02/21/18at 08:27; Start 02/17/18 at 11:30 Hydromorphone HCl (Dilaudid Pf Inj) 1 mg ONCE ONCE IV PUSH Last administered on 02/17/18at 11:46; Start 02/17/18 at 11:30; Stop 02/17/18 at 11:31; Status DC Morphine Sulfate (Morphine Inj) 2 mg Q4H PRN IV PUSH PAIN SCALE 1 TO 4 Last administered on 02/21/18at 02:11; Start 02/17/18 at 11:30 Metronidazole (Flagyl) 500 mg Q8HR PO Last administered on 02/21/18at 06:09; Start 02/17/18 at 16:00 Fluconazole (Diflucan) 100 mg DAILY PO Last administered on 02/21/18at 08:26; Start 02/17/18 at 16:00 Cefepime HCl 2000 mg/Sodium Chloride 100 ml @ 200 mls/hr Q8H IV Last administered on 02/21/18at 10:27; Start 02/18/18 at 11:00 Ketorolac Tromethamine (Toradol Inj) 30 mg Q6H IV PUSH Last administered on 02/21at 08:28; Start 02/18/18 at 14:00; Stop 02/23/18 at 08:01 Methylprednisolone Sodium Succinate (SoluMEDROL INJ) 80 mg ONCE ONCE IV Last administered on 02/18/18at 19:19; Start 02/18/18 at 18:30; Stop 02/18/18 at 18:31; Status DC Fentanyl (Duragesic 50 Mcg Patch.72 Hr) 1 patch Q3D T-DERMAL Last administered on 02/19/18at 13:14; Start 02/19/18 at 10:00 Miscellaneous Information 1 Q3D T-DERMAL ; Start 02/22/18 at 10:00 Methylprednisolone Sodium Succinate (SoluMEDROL INJ) 125 mg ONCE ONCE IV PUSH Last administered on 02/19/18at 11:05; Start 02/19/18 at 10:45; Stop 02/19/18 at 10: 46; Status DC Heparin Sodium (Porcine) (Heparin Inj) 5,000 units Q12H SQ Last administered on 02/21/18at 06:09; Start 02/19/18 at 18:00 A/P Problem List: (1) Intractable pain ICD Code: R52 - Pain, unspecified (2) Pelvic abscess (3) Osteomyelitis of pelvis ICD Code: M86.9 - Osteomyelitis, unspecified (4) Bladder cancer ICD Code: C67.9 - Malignant neoplasm of bladder, unspecified Status: Chronic Assessment and Plan Pelvic abscess with pelvis osteomyelitis CT of the abdomen/pelvis shows areas suspicious for infection Continue vancomycin, cefepime, Flagyl Final blood cultures results pending Patient prefers aggressive measures at this time over palliative/hospice options Patient may benefit from tertiary care center due to difficulty with addressing the location of this infection Appreciate infectious disease consult Intractable pain Patient is currently on morphine and intermittent Dilaudid Toradol and Solu-Medrol added yesterday have provided some increased relief Fentanyl patch added for baseline coverage Solu-Medrol redosed today, Toradol scheduled Will follow renal function with a.m. labs Severe protein malnutrition Patient has had poor oral intake, poor sleep, chemotherapy for the past 7 months He is underweight and very weak Continue to encourage p.o. intake and supplementation with Ensure History of bladder cancer Continue outpatient follow-up with oncologist Coronary artery disease Continue metoprolol Anasarca Continue Lasix Likely secondary to spending 80% of the day and night on his feet Attempting to make him more comfortable with pain so that he can lie down and allow edema to lessen DVT prophylaxis We will begin heparin SCD hose NEEDS IV ACCESS PLACE PICC LINE DW RN AND PT AND PALLIATIVE CARE AND CM WILL NEED TRANSFER OR DISCHARGE AND GO TO TERTIARY CENTER Discharge Planning AM LABS PICC LINE CM FOR TRANSFER TO TERTIARY CENTER Morales Petty DO Feb 21, 2018 11:32
[2018-02-21 16:53] LABS: HEMOGLOBIN A1C 5.8 % (4.3-6.0)
--- NOTE | 2018-02-21 17:32 | HHI.IDPN ---
Subjective Subjective Remarks This is a 57-year-old male with past medical history significant for bladder cancer prostate cancer with ureteral involvement diagnosed in 2013 who subsequently underwent bladder resection and radical prostatectomy with ileal conduit that was performed at [facility] in September 2016. Patient has undergone chemotherapy and radiation therapy is complicated by development of a DVT. He subsequently developed a colo-vesicle fistula and underwent lysis of adhesions with colostomy that was performed September 17, 2017. In September of this year, patient was admitted at [facility] for fluid collection in the pelvis concerning for abscess and underwent an expiratory laparotomy with small bowel resection and removal of enterocutaneous fistula and drainage of pelvic abscess. Patient was managed during this hospitalization by infectious disease and treated with IV Zosyn, Diflucan and ciprofloxacin. Most recently, patient was discharged approximately 3 weeks ago from [facility] after 3 months of hospitalization for ongoing management of recurrent pelvic infection. He was discharged on oral Flagyl and Cipro which he states he has been compliant with. Patient has continued to follow-up with his oncologist Dr. Khan and his infectious disease specialist Dr. Altamirano as an outpatient. Patient reports a 40 pound weight loss in the past month. Patient decided to come to [place] for second opinion as he states he is not improving. He continues to have severe pain in his rectum and bloody mucoid discharge. Patient denies any complaints of fever, chills or night sweats. He denies any nausea vomiting or abdominal pain. He denies any chest pain or shortness of breath. In the ED, patient presented with sepsis with white count of 14, lactic acid 2.6, renal failure with creatinine 1.55, hypotension and tachycardia. CT of the abdomen and pelvis was obtained which revealed diffuse anasarca, distended stomach and a 6.1 x 9.8 cm fluid collection inside the patient's rectum with extensive stool throughout the colon without any signs of obstruction. UA was suggestive of UTI with large leukocytes, 63 white blood cells, 6 red blood cells, rare bacteria and occasional yeast, culture indicated. Infectious disease consultation has been requested for evaluation and management of abdominal abscess. Notes reviewed patient c/o rectal pain but now able to sit and comfortable at times. denies any improvements. no fever no rash no N/V no abd pain no diarrhea Antibiotics IV Cefepime po Flagyl po Diflucan Lines PIV with no e/o infection Past Medical History Bladder cancer Prostate cancer Colourethral fistula Hx of pelvic abscess Hx of pelvic pubic symphysis osteomyelitis CAD s/p OK x 2 and stent implantation Dyslipidemia Previous DVT Allergies: Coded Allergies: No Known Allergies (Verified Allergy, Unknown, 08/11/17) Objective . Vital Signs Date Time Temp Pulse Resp B/P (MAP) Pulse Ox O2 Delivery O2 Flow Rate FiO2 02/21/18 13:57 95 02/21/18 12:01 97.4 91 17 93/71 (78) 98 02/21/18 10:47 94 02/21/18 08:01 97.3 102 17 95/69 (78) 98 02/21/18 04:00 97.9 99 18 99/69 (79) 100 02/21/18 01:15 89 02/21/18 00:00 97.7 104 17 108/75 (86) 96 02/20/18 20:00 97.5 98 18 105/66 (79) 100 02/20/18 20:00 102 . Laboratory Tests Test 02/21/18 09:00 White Blood Count 13.4 TH/MM3 Red Blood Count 3.60 MIL/MM3 Hemoglobin 10.3 GM/DL Hematocrit 32.8 % Mean Corpuscular Volume 91.1 FL Mean Corpuscular Hemoglobin 28.6 PG Mean Corpuscular Hemoglobin Concent 31.4 % Red Cell Distribution Width 18.8 % Platelet Count 363 TH/MM3 Mean Platelet Volume 7.5 FL Neutrophils (%) (Auto) 88.8 % Lymphocytes (%) (Auto) 5.2 % Monocytes (%) (Auto) 4.5 % Eosinophils (%) (Auto) 1.1 % Basophils (%) (Auto) 0.4 % Neutrophils # (Auto) 11.9 TH/MM3 Lymphocytes # (Auto) 0.7 TH/MM3 Monocytes # (Auto) 0.6 TH/MM3 Eosinophils # (Auto) 0.1 TH/MM3 Basophils # (Auto) 0.1 TH/MM3 CBC Comment DIFF FINAL Differential Comment Laboratory Tests Test 02/20/18 07:23 02/21/18 09:00 Creatinine 1.16 MG/DL 1.15 MG/DL Estimat Glomerular Filtration Rate 65 ML/MIN 66 ML/MIN Blood Urea Nitrogen 43 MG/DL Random Glucose 74 MG/DL Total Protein 6.9 GM/DL Albumin 2.6 GM/DL Calcium Level 8.0 MG/DL Phosphorus Level 2.6 MG/DL Magnesium Level 1.4 MG/DL Alkaline Phosphatase 111 U/L Aspartate Amino Transf (AST/SGOT) 24 U/L Alanine Aminotransferase (ALT/SGPT) 28 U/L Total Bilirubin 0.2 MG/DL Sodium Level 136 MEQ/L Potassium Level 5.6 MEQ/L Chloride Level 109 MEQ/L Carbon Dioxide Level 18.3 MEQ/L Anion Gap 9 MEQ/L Free Thyroxine 1.19 NG/DL Thyroid Stimulating Hormone 3rd Gen 6.830 uIU/ML Imaging Last Impressions Abdomen/Pelvis CT 02/16/18 0000 Signed Impressions: CONCLUSION: 1. Diffuse anasarca. 2. Abnormal fluid collection inside the rectum nonspecific, however infectious fluid collection could have this appearance and clinical correlation is sugges deondre. The exact etiology is not certain. 3. The stomach is distended with significant amount of stool throughout the co cinthya without signs of small bowel obstruction. Abdomen X-Ray 02/16/18 0000 Signed Impressions: CONCLUSION: Benign-appearing abdomen. Physical Exam GENERAL: This is a thin ill-appearing male patient, in no apparent distress. Awake and alert. Appears uncomfortable from rectal pain, standing resting forearms on window seal. SKIN: No rashes, ecchymoses or lesions. Cool and dry. HEAD: Atraumatic. Normocephalic. No temporal or scalp tenderness. EYES: Pupils equal round and reactive. Extraocular motions intact. No scleral icterus. No injection or drainage. ENT: Nose without bleeding or purulent drainage. Throat without erythema, tonsillar hypertrophy or exudate. Uvula midline. Airway patent. NECK: Trachea midline. No lymphadenopathy. Supple, nontender, no meningeal signs. CARDIOVASCULAR: Regular rate and rhythm without murmurs, gallops, or rubs. RESPIRATORY: Clear to auscultation. Breath sounds equal bilaterally. No wheezes , rales, or rhonchi. GASTROINTESTINAL: Abdomen soft, non-tender, nondistended. No hepato-splenomegaly , or palpable masses. No guarding. +Ileal Conduit with clear yellow urine in bag. +Colostomy LLQ Per rectal exam performed by Dr. Junior - large hard tumor almost circumferential, more right than left, and with the expression of large amounts of mucus but no evidence of pus or bogginess indicative of an anal abscess. MUSCULOSKELETAL: Extremities without clubbing or cyanosis. 2+ BLE pitting edema. No joint tenderness, effusion, or edema noted. No calf tenderness. NEUROLOGICAL: Awake and alert. Cranial nerves II through XII grossly intact. Motor and sensory grossly within normal limits. No focal neurologic findings appreciated. Normal speech. PSYCHIATRIC: Calm and cooperative PIV with no e/o infection Assessment & Plan Remarks Severe sepsis at ED presentation -CT abd/pelvis shows diffuse anasarca, abnormal fluid collection inside the rectum ?infectious Hx of bladder and prostate cancer Hx of pelvic abscess and pelvic pubic symphysis osteomyelitis s/p radical cystoprostatectomy with ileal conduit with chemo and xrt treatment s/p clean out of pelvic abscess and diverting sigmoid colostomy s/p exp laparotomy for clean out of pelvic abscess Constipation CAD s/p OK and stent placement RECS: DC IV Cefepime DC Flagyl Start oral cipro Start Zyvox oral (grew E faecalis in past ? VRE by now) Continue on po Diflucan Follow-up on all culture results Follow clinically Will petey Henderson at : Grew E.faecalis in 10/2017. PSAE in urine in September sensitive to Cipro and other antibiotics. Completed IV antibiotics then switched to Cipro and Flagyl on discharge. E.faecalis was pansensitive. petey Henderson infectious mets to bone as possible cause for Pubic Osteomyelitis. 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 petey Patient and significant other about CM updates. Reviewed medical records: h/o polysubstance abuse (cocaine, THC and Opiates per records at ), advanced recurrent cancer with bony mets. Multiple admissions at [facility] in Sep,Oct, December and as recently as 2 weeks back. Marilia Junior MD Feb 21, 2018 17:32
[2018-02-21] MEDS: CIPROFLOXACIN 500 MG TAB PO SCH (20:57)
[2018-02-21] MEDS: LINEZOLID 600 MG TAB PO SCH (20:57)
[2018-02-22] VITALS (9 sets, daily range): BP systolic 95–111; BP diastolic 60–77; PULSE 91–112; RESP 16–20; TEMP 97.5–98.7; O2SAT 97–99
[2018-02-22] MEDS: MORPHINE SULFATE 8 MG/ML INJ IV PUSH PRN ×4 (01:15→15:21)
[2018-02-22] MEDS: KETOROLAC TROMETHAMINE 30 MG/ML (IVP) VIAL IV PUSH SCH ×4 (01:15→21:05)
[2018-02-22] MEDS: HYDROmorphone HCL PF 2 MG/ML VIAL IV PUSH PRN ×5 (03:23→21:06)
[2018-02-22] MEDS: HEPARIN SODIUM - SQ 10,000 UNITS/ML VIAL SQ SCH ×3 (05:38→17:18)
[2018-02-22] MEDS: metroNIDAZOLE 500 MG TAB PO SCH ×3 (05:38→21:05)
[2018-02-22] MEDS: LINEZOLID 600 MG TAB PO SCH ×2 (08:03→21:05)
[2018-02-22] MEDS: CIPROFLOXACIN 500 MG TAB PO SCH ×2 (08:03→21:05)
[2018-02-22] MEDS: GABAPENTIN 300 MG CAP PO SCH ×3 (08:03→17:18)
[2018-02-22] MEDS: FLUCONAZOLE 100 MG TAB PO SCH (08:03)
[2018-02-22] MEDS: SODIUM CHLORIDE 0.9% FLUSH 10 ML FLUSH IV FLUSH SCH ×2 (08:04→21:05)
[2018-02-22] MEDS: METOPROLOL SUCCINATE 25 MG EXTENDED RELEASE TAB PO SCH (08:05)
[2018-02-22] MEDS ORDERED: REMOVE OLD DURAGESIC (FENTANYL) PATCH T-DERMAL SCH (10:00)
--- NOTE | 2018-02-22 10:07 | HHI.PR ---
Subjective Remarks Follow up pelvic abscess and pelvic pubic symphysis osteomyelitis February 22, 2018-patient seen and examined, no acute event overnight, currently afebrile, states he is not ready for hospice. Objective Vitals Vital Signs Date Time Temp Pulse Resp B/P (MAP) Pulse Ox O2 Delivery O2 Flow Rate FiO2 02/22/18 09:51 96 02/22/18 08:00 97.6 102 20 109/77 (88) 02/22/18 04:00 105 02/22/18 03:48 Room Air 02/22/18 03:47 98.2 101 16 95/60 (72) 97 02/22/18 00:00 Room Air 02/22/18 00:00 98.7 112 16 103/68 (80) 97 02/22/18 00:00 105 02/21/18 20:00 97.5 109 16 105/57 (73) 97 02/21/18 20:00 109 02/21/18 20:00 Room Air 02/21/18 17:29 93 02/21/18 16:01 97.4 94 17 92/67 (75) 100 02/21/18 13:57 95 02/21/18 12:01 97.4 91 17 93/71 (78) 98 02/21/18 10:47 94 I/O 02/21/18 02/21/18 02/21/18 02/22/18 02/22/18 02/22/18 07:00 15:00 23:00 07:00 15:00 23:00 Intake Total 340 ml 1320 ml 240 ml Output Total 750 ml Balance 340 ml 1320 ml -510 ml Intake Oral 240 ml 1320 ml 240 ml IV Total 100 ml Output Urine Total 750 ml # Voids 3 # Bowel Movements 2 2 Result Diagram: 02/21/18 0900 02/21/18 0900 Imaging Last Impressions Abdomen/Pelvis CT 02/16/18 0000 Signed Impressions: CONCLUSION: 1. Diffuse anasarca. 2. Abnormal fluid collection inside the rectum nonspecific, however infectious fluid collection could have this appearance and clinical correlation is sugges deondre. The exact etiology is not certain. 3. The stomach is distended with significant amount of stool throughout the co cinthya without signs of small bowel obstruction. Abdomen X-Ray 02/16/18 0000 Signed Impressions: CONCLUSION: Benign-appearing abdomen. Objective Remarks Last Impressions GENERAL: NAD SKIN: Warm and dry. HEAD: Normocephalic. EYES: No scleral icterus. No injection or drainage. NECK: Supple, trachea midline. No JVD or lymphadenopathy. CARDIOVASCULAR: Regular rate and rhythm without murmurs, gallops, or rubs. RESPIRATORY: Breath sounds equal bilaterally. No accessory muscle use. GASTROINTESTINAL: Abdomen soft, non-tender, nondistended.+Ileal Conduit with clear yellow urine in bag . Colostomy bag in place LLQ MUSCULOSKELETAL: No cyanosis, +BLE edema. ; Scrotal edema BACK: Nontender without obvious deformity. No CVA tenderness. Procedures NONE A/P Problem List: (1) Intractable pain ICD Code: R52 - Pain, unspecified (2) Pelvic abscess (3) Osteomyelitis of pelvis ICD Code: M86.9 - Osteomyelitis, unspecified (4) Bladder cancer ICD Code: C67.9 - Malignant neoplasm of bladder, unspecified Status: Chronic Assessment and Plan 57-year-old man with Pelvic abscess with pelvis osteomyelitis CT of the abdomen/pelvis shows areas suspicious for infection s/p vancomycin, cefepime, Currently on p.o. Zyvox, Flagyl, Diflucan and Cipro per ID Patient prefers aggressive measures at this time over palliative/hospice options Patient may benefit from tertiary care center due to difficulty with addressing the location of this infection Appreciate infectious disease consult Intractable pain Patient is currently on morphine, fentanyl patch and intermittent Dilaudid and Toradol scheduled Severe protein malnutrition Patient has had poor oral intake, poor sleep, chemotherapy for the past 7 months Continue to encourage p.o. intake and supplementation with Ensure History of bladder cancer Continue outpatient follow-up with oncologist Coronary artery disease Continue metoprolol Anasarca Continue Lasix DVT prophylaxis Heparin /SCD Chau King MD Feb 22, 2018 10:07
[2018-02-22] MEDS: FUROSEMIDE 20 MG TAB PO SCH (10:18)
[2018-02-22] MEDS: fentaNYL 50 MCG/HR PATCH T-DERMAL SCH (10:19)
[2018-02-22 10:36] LABS: AUTOMATED NEUTROPHIL # 10.3 TH/MM3 (1.8-7.7); BASOPHIL # 0.1 TH/MM3 (0-0.2); BASOPHIL % 0.5 % (0.0-2.0); EOSINOPHIL % 0.4 % (0.0-4.0); HEMATOCRIT 31.1 % (39.0-51.0); HEMOGLOBIN 9.7 GM/DL (13.0-17.0); LYMPH % 4.1 % (9.0-44.0); LYMPHOCYTE # 0.5 TH/MM3 (1.0-4.8); MEAN CORPUSCULAR HEMOGLOBIN 28.5 PG (27.0-34.0); MEAN CORPUSCULAR HGB CONC 31.4 % (32.0-36.0); MEAN PLATELET VOLUME 7.4 FL (7.0-11.0); MONO % 4.9 % (0.0-8.0); MONOCYTE # 0.6 TH/MM3 (0-0.9); NEUT % 90.1 % (16.0-70.0); PLATELET COUNT 347 TH/MM3 (150-450); RED BLOOD COUNT 3.41 MIL/MM3 (4.50-5.90); RED CELL DISTRIBUTION WIDTH 18.7 % (11.6-17.2); WHITE BLOOD COUNT 11.5 TH/MM3 (4.0-11.0)
[2018-02-22 11:09] LABS: ALBUMIN 2.5 GM/DL (3.4-5.0); BICARBONATE 19.2 MEQ/L (21.0-32.0); BLOOD UREA NITROGEN 42 MG/DL (7-18); CALCIUM 8.3 MG/DL (8.5-10.1); CHLORIDE 108 MEQ/L (98-107); CREATININE 1.17 MG/DL (0.60-1.30); GLOMERULAR FILTRATION RATE 64 ML/MIN (>89); GLUCOSE,RANDOM 99 MG/DL (74-106); MAGNESIUM 1.4 MG/DL (1.5-2.5); SODIUM (NA) 139 MEQ/L (136-145)
[2018-02-22 11:11] LABS: ALT (GPT) 22 U/L (12-78); AST (GOT) 14 U/L (15-37); PHOSPHORUS 2.7 MG/DL (2.5-4.9)
[2018-02-22 11:13] LABS: ALKALINE PHOSPHATASE 91 U/L (45-117); TOTAL BILIRUBIN ADULT 0.3 MG/DL (0.2-1.0); TOTAL PROTEIN 6.4 GM/DL (6.4-8.2)
--- NOTE | 2018-02-22 13:18 | HHI.HCPN ---
Reason for visit a. To assist with evaluation and management of symptoms including: pelvic/ rectal pain; bone pain b. To assist medical decision maker(s) with: better understanding of current medical conditions; weighing benefits/burdens of medical treatment options; making medical treatment decisions. . Subjective/Interval History INTERVAL NOTE: The patient tells me that the parenteral opiates help his pain for an hour or 2 and then it comes back. He definitely would like to have better pain control on a more sustained an consistent basis. The oncologist at [facility] reportedly declined taking the patient in transfer, but apparently there is another physician they are talking to their and have not heard back yet. When questioned about what the patient's goals would be if this other [facility] physician declines assuming his care, the patient said he would then want to try [facility] or [facility]. He remains on his 50 mcg fentanyl patch, and he is receiving multiple doses of parenteral hydromorphone, morphine, and ketorolac each day. . Advance Directives Living Will: Completed, but not made available Health Care Surrogate: Completed, but not made available Durable Power of Hide Washer: Never completed Advance Directive Specifics Date completed: The patient has completed an advanced directive in the past. He is unsure of the date. He wants to update the information as in the past he had designated his girlfriend as his healthcare surrogate. They have since broken up. Patient has been given new advanced directive forms to complete. . 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 . Documented care wishes: We currently have no written documentation of the patient's healthcare goals and preferences. . Objective Vital Signs Date Time Temp Pulse Resp B/P (MAP) Pulse Ox O2 Delivery O2 Flow Rate FiO2 02/22/18 09:51 96 02/22/18 08:00 97.6 102 20 109/77 (88) 02/22/18 04:00 105 02/22/18 03:48 Room Air 02/22/18 03:47 98.2 101 16 95/60 (72) 97 02/22/18 00:00 Room Air 02/22/18 00:00 98.7 112 16 103/68 (80) 97 02/22/18 00:00 105 02/21/18 20:00 97.5 109 16 105/57 (73) 97 02/21/18 20:00 109 02/21/18 20:00 Room Air 02/21/18 17:29 93 02/21/18 16:01 97.4 94 17 92/67 (75) 100 02/21/18 13:57 95 Intake & Output 02/22/18 02/22/18 07:00 19:00 Intake Total 240 ml Output Total 750 ml Balance -510 ml Intake Oral 240 ml Output Urine Total 750 ml # Bowel Movements 2 Physical Exam CONSTITUTIONAL/GENERAL: This is a somewhat thin patient. The patient remains standing through the entire history and exam, since the pain is not as bad in that position. TUBES/LINES/DRAINS: Peripheral IV; ileal conduit NECK: Trachea midline. Supple, nontender. No palpable thyroid enlargement or nodularity. CARDIOVASCULAR: Regular rate and rhythm without murmurs, gallops, or rubs. No JVD. Peripheral pulses symmetric. RESPIRATORY/CHEST: Symmetric, unlabored respirations. Clear to auscultation. Breath sounds equal bilaterally. No wheezes, rales, or rhonchi. GASTROINTESTINAL: Abdomen soft, non-tender, nondistended. No hepato-splenomegaly , or palpable masses. No guarding. Bowel sounds present. Ileal conduit MUSCULOSKELETAL: Extremities without clubbing, cyanosis. There is 3-4+ tense edema in both lower extremities. No calf tenderness. No mottling or clubbing. NEUROLOGICAL: Awake and alert. Motor and sensory grossly within normal limits. Follows commands. Cognitively sharp. Moves all extremities. PSYCHIATRIC: No obvious anxiety/depression. Patient expresses a great deal of anger regarding some of his medical care to date. No apparent hallucinations or other psychotic thought process. . Diagnostic Tests Laboratory Laboratory Tests Test 02/20/18 07:23 02/21/18 09:00 02/22/18 10:08 Creatinine 1.16 MG/DL (0.60-1.30) 1.15 MG/DL (0.60-1.30) 1.17 MG/DL (0.60-1.30) Estimat Glomerular Filtration Rate 65 ML/MIN (>89) 66 ML/MIN (>89) 64 ML/MIN (>89) White Blood Count 13.4 TH/MM3 (4.0-11.0) 11.5 TH/MM3 (4.0-11.0) Red Blood Count 3.60 MIL/MM3 (4.50-5.90) 3.41 MIL/MM3 (4.50-5.90) Hemoglobin 10.3 GM/DL (13.0-17.0) 9.7 GM/DL (13.0-17.0) Hematocrit 32.8 % (39.0-51.0) 31.1 % (39.0-51.0) Mean Corpuscular Volume 91.1 FL (80.0-100.0) 91.0 FL (80.0-100.0) Mean Corpuscular Hemoglobin 28.6 PG (27.0-34.0) 28.5 PG (27.0-34.0) Mean Corpuscular Hemoglobin Concent 31.4 % (32.0-36.0) 31.4 % (32.0-36.0) Red Cell Distribution Width 18.8 % (11.6-17.2) 18.7 % (11.6-17.2) Platelet Count 363 TH/MM3 (150-450) 347 TH/MM3 (150-450) Mean Platelet Volume 7.5 FL (7.0-11.0) 7.4 FL (7.0-11.0) Neutrophils (%) (Auto) 88.8 % (16.0-70.0) 90.1 % (16.0-70.0) Lymphocytes (%) (Auto) 5.2 % (9.0-44.0) 4.1 % (9.0-44.0) Monocytes (%) (Auto) 4.5 % (0.0-8.0) 4.9 % (0.0-8.0) Eosinophils (%) (Auto) 1.1 % (0.0-4.0) 0.4 % (0.0-4.0) Basophils (%) (Auto) 0.4 % (0.0-2.0) 0.5 % (0.0-2.0) Neutrophils # (Auto) 11.9 TH/MM3 (1.8-7.7) 10.3 TH/MM3 (1.8-7.7) Lymphocytes # (Auto) 0.7 TH/MM3 (1.0-4.8) 0.5 TH/MM3 (1.0-4.8) Monocytes # (Auto) 0.6 TH/MM3 (0-0.9) 0.6 TH/MM3 (0-0.9) Eosinophils # (Auto) 0.1 TH/MM3 (0-0.4) 0.0 TH/MM3 (0-0.4) Basophils # (Auto) 0.1 TH/MM3 (0-0.2) 0.1 TH/MM3 (0-0.2) CBC Comment DIFF FINAL DIFF FINAL Differential Comment Blood Urea Nitrogen 43 MG/DL (7-18) 42 MG/DL (7-18) Random Glucose 74 MG/DL (74-106) 99 MG/DL (74-106) Total Protein 6.9 GM/DL (6.4-8.2) 6.4 GM/DL (6.4-8.2) Albumin 2.6 GM/DL (3.4-5.0) 2.5 GM/DL (3.4-5.0) Calcium Level 8.0 MG/DL (8.5-10.1) 8.3 MG/DL (8.5-10.1) Phosphorus Level 2.6 MG/DL (2.5-4.9) 2.7 MG/DL (2.5-4.9) Magnesium Level 1.4 MG/DL (1.5-2.5) 1.4 MG/DL (1.5-2.5) Alkaline Phosphatase 111 U/L (45-117) 91 U/L (45-117) Aspartate Amino Transf (AST/SGOT) 24 U/L (15-37) 14 U/L (15-37) Alanine Aminotransferase (ALT/SGPT) 28 U/L (12-78) 22 U/L (12-78) Total Bilirubin 0.2 MG/DL (0.2-1.0) 0.3 MG/DL (0.2-1.0) Sodium Level 136 MEQ/L (136-145) 139 MEQ/L (136-145) Potassium Level 5.6 MEQ/L (3.5-5.1) 4.9 MEQ/L (3.5-5.1) Chloride Level 109 MEQ/L (98-107) 108 MEQ/L (98-107) Carbon Dioxide Level 18.3 MEQ/L (21.0-32.0) 19.2 MEQ/L (21.0-32.0) Anion Gap 9 MEQ/L (5-15) 12 MEQ/L (5-15) Hemoglobin A1c 5.8 % (4.3-6.0) Free Thyroxine 1.19 NG/DL (0.76-1.46) Thyroid Stimulating Hormone 3rd Gen 6.830 uIU/ML (0.358-3.740) Result Diagram: 02/22/18 1008 02/22/18 1008 Assessment and Plan Disease Oriented Problem List: (1) Small cell carcinoma of bladder Comment: Now with associated pelvic abscess; osteomyelitis of the pubic symphysis; and likely pulmonary mets. . (2) Coronary artery disease Comment: Two recent MIs since Jul 2017 with stenting. . (3) Recent myocardial infarction Comment: MIs in Jul 2017 and again in December 2017. . (4) Ischemic cardiomyopathy (5) Pelvic abscess (6) Osteomyelitis of pelvis (7) Intractable pain Symptom Scale: (1) Pelvic pain in male 0-10 Scale: 10 (2) Edema 0-10 Scale: 10 Pertinent Non-Medical Issues Psychosocial: Recently broke up from residential girlfriend. Father in 2016. Mostly estranged from his one daughter. His local brother and mother are his main psychosocial support. 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 Spiritual: "I'm a believer." Not a member of any local amelia group. Ambivalent about bisque tile burner visits. Legal: Wants to re-write living will now that he has broken up from his laborer marine terminal girl friend. Ethical issues impacting care: Currently capacitated to make his own health care decision. . Important Contacts * Ari Longoria (brother) [phone] * Dallin Davidson (friend/ verbally requested HCS): . Prognosis This unfortunate man will probably require further complicated surgery to help eradicate infection. He is at high surgical risk because of the recent two heart attacks. Colorectal surgery has indicated that surgery, if an option, would need to be addressed in a tertiary medical center. Pt has had maximal radiation so additional chemotherapy remains his only option for cancer directed therapy. Patient reports cancer is now spread to lung. He is currently a poor candidate for chemotherapy because of his infection and cachexia. Without aggressive treatment directed at eradicating the infection and addressing his cancer, life expectancy may be in the order of weeks to months. Should the patient opt to forego further aggressive care or should there be no further options available at a tertiary center, he would be a candidate for hospice care. . Code Status: Full Code Plan == Code Status: FULL CODE per discussion of 02/21/18 == Decision Making: Pt is currently capacitated to make his own health care decisions. Should he become incapacitated he has designated his friend-- Dallin Davidson -- to be his health care surrogate. == Goals of medical treatment: Pt is young, determined to fight, and wants to be evaluated in a tertiary [facility] to see if there is more that can be done to prolong his life. == Symptoms: * Pain: Pain is primarily in the perineal area between rectum and scrotum. Pain reaches #10 level daily and is described as stabbing. It is much worse when he attempts to lie down and he therefore stays standing or in a kneeling position day and night. Pain has been helped by iv opioids. He has not found an oral regimen that has been helpful but equianalgesic doses appear to have been much lower than inpatient parenteral doses. Patient feels the addition of steroids has made a big difference in his pain control. Pain return in less than two hours with IV opioids. Patient has been approved for medical marijuana and says that marijuana helps with pain and appetite. * Edema: Patient reports that edema has only begun after his second PA about one month ago. He says the consultant internship told him he lost 26% of his cardiac output. * Cachexia: Has lost 45 lbs since diagnosis. Steroids helping with appetite. PLAN == Provided patient with advance directive document to complete. He wanted to replace out-of-date ones which listed an ex-girlfriend as his health care surrogate. == As per previous recommendations, I will increase his transdermal fentanyl to 100 mcg. He continues to have PRN hydromorphone and morphine available. == If we can get the pain controlled well enough to allow him to lie down and elevate the legs, the edema might improve. Also, may want to consider dexamethasone as the steroid -- it has less mineralocorticoid effects and less likely to cause fluid retention in this patient with edema and anasarca. == Case management working to find accepting tertiary care center. We will focus on symptom (pain) management and infection control pending transfer. == If no transfer is possible, or if [facility] center has nothing more to offer, we will need to re-address goals including code status and hospice care. == He has been diagnosed with cancer recurrence, suffered two MIs, lost his father, and had a break-up of a 16 year relationships all since July. Palliative care will try to offer additional psychosocial support. == Palliative care will continue to follow to assist with symptom management and further clarify goals of medical treatment as the clinical course evolves. . Time Spent Total Floor Time (mins): 36 Face to Face Time (mins): 25 >50% Counseling/Coord of Care: Yes (d/w CM) Attestation To help prompt me to consider important information that might be impacting today's encounter and assessment, information from prior notes written by myself or my colleagues may have been "brought forward" into today's note. My signature on this note, however, is an attestation that I personally performed the exam, history, and/or decision-making noted today, and, unless otherwise indicated, the interactions with patient, family, and staff as well as the review of records all occurred today. I also attest that the listed assessment and stated plan reflect my best clinical judgment today based on the combination of historical information, prior notes, and today's exam/ interactions. When time spent is documented, it refers only to time spent today by the signer, or if indicated, combined time spent today by collaborating physician/nurse practitioner. Pauline Vera MD Feb 22, 2018 13:18
[2018-02-22] MEDS ORDERED: fentaNYL 100 MCG/HR PATCH T-DERMAL SCH (13:30)
--- NOTE | 2018-02-22 14:42 | HHI.HCSW ---
Framing Consultant Visit Cognitive Functioning Mr. Longoria currently standing up eating lunch tray. He is alert, oriented, and able to make his needs known. Indicates some discomfort both sitting and lying down. Tells me medical team is currently working on getting his pain and symptoms better managed. He verbalizes appreciation of this. Mr. Longoria has a good understanding of his medical condition and continues to have hope of a transfer to a tertiary care facility. . Significant Family/Friend Friend at bedside. No questions or concerns. Mr. Longoria verbalizes she is a good friend and support system for him. . Quality of Life Values/Goals Wishes to continue with possible treatment options. Currently awaiting determination of transfer to a tertiary care facility. . Advance Directive Mr. Longoria indicates he wishes to designate his friend Dallin Pollackstorm as HCS. States Dallin is coming to the hospital tonight and he wants to complete the paperwork when he is also present. Requested upon completion copy be given to RN for his chart. . Follow Up Visit Palliative care will continue to follow throughout hospitalization. Plan to follow-up this week to obtain copies of advanced directives/HCS once completed by patient. Catherine Ayers, SECTION LEADER SCREEN PRINTING Feb 22, 2018 14:42
--- NOTE | 2018-02-22 17:08 | HHI.PR ---
Addendum to Inpatient Note Addendum Reason: Additional Documentation Additional Information Case was discussed with Hospitalist at [facility], who requested that CRS, Dr Junior be contacted in order to review the case prior to possible transfer to Chau Pillai MD Feb 22, 2018 17:08
[2018-02-22] MEDS: fentaNYL 100 MCG/HR PATCH T-DERMAL SCH (17:17)
[2018-02-23] VITALS (8 sets, daily range): BP systolic 95–152; BP diastolic 57–94; PULSE 96–108; RESP 16–20; TEMP 97.2–98.1; O2SAT 99–100
[2018-02-23] MEDS: KETOROLAC TROMETHAMINE 30 MG/ML (IVP) VIAL IV PUSH SCH ×2 (01:07→09:36)
[2018-02-23] MEDS: HYDROmorphone HCL PF 2 MG/ML VIAL IV PUSH PRN ×5 (02:54→23:16)
[2018-02-23] MEDS: metroNIDAZOLE 500 MG TAB PO SCH ×3 (05:39→20:16)
[2018-02-23] MEDS: HEPARIN SODIUM - SQ 10,000 UNITS/ML VIAL SQ SCH ×2 (05:39→18:16)
[2018-02-23] MEDS: FLUCONAZOLE 100 MG TAB PO SCH (09:38)
[2018-02-23] MEDS: CIPROFLOXACIN 500 MG TAB PO SCH ×2 (09:38→20:16)
[2018-02-23] MEDS: GABAPENTIN 300 MG CAP PO SCH ×3 (09:38→18:15)
[2018-02-23] MEDS: METOPROLOL SUCCINATE 25 MG EXTENDED RELEASE TAB PO SCH (09:38)
[2018-02-23] MEDS: LINEZOLID 600 MG TAB PO SCH ×2 (09:38→20:16)
[2018-02-23] MEDS: FUROSEMIDE 20 MG TAB PO SCH (09:38)
[2018-02-23] MEDS: SODIUM CHLORIDE 0.9% FLUSH 10 ML FLUSH IV FLUSH SCH ×2 (09:39→20:16)
--- NOTE | 2018-02-23 10:04 | HHI.PR ---
Subjective Remarks Follow up pelvic abscess and pelvic pubic symphysis osteomyelitis February 22, 2018-patient seen and examined, no acute event overnight, currently afebrile, states he is not ready for hospice. February 23, 2018-patient seen and examined, stable overnight and no acute event. Case was discussed yesterday with hospitalist at [facility] regarding possible transfer. Patient lost his IV access Objective Vitals Vital Signs Date Time Temp Pulse Resp B/P (MAP) Pulse Ox O2 Delivery O2 Flow Rate FiO2 02/23/18 08:00 98.1 99 20 106/68 (81) 02/23/18 04:00 97.6 106 16 108/64 (79) 100 02/23/18 04:00 102 02/23/18 03:51 Room Air 02/23/18 00:00 97.8 107 18 95/57 (70) 99 02/23/18 00:00 108 02/23/18 00:00 Room Air 02/22/18 20:00 Room Air 02/22/18 20:00 97.7 100 16 97/74 (82) 97 02/22/18 20:00 101 02/22/18 18:34 91 02/22/18 16:28 99 Room Air 02/22/18 16:00 97.5 102 20 111/66 (81) 02/22/18 12:00 98.0 99 20 95/61 (72) 99 I/O 02/22/18 02/22/18 02/22/18 02/23/18 02/23/18 02/23/18 07:00 15:00 23:00 07:00 15:00 23:00 Intake Total 240 ml 960 ml 240 ml Output Total 750 ml 600 ml Balance -510 ml 360 ml 240 ml Intake Oral 240 ml 960 ml 240 ml Output Urine Total 750 ml 600 ml # Bowel Movements 2 1 Result Diagram: 02/22/18 1008 02/22/18 1008 Imaging Last Impressions Abdomen/Pelvis CT 02/16/18 0000 Signed Impressions: CONCLUSION: 1. Diffuse anasarca. 2. Abnormal fluid collection inside the rectum nonspecific, however infectious fluid collection could have this appearance and clinical correlation is sugges deondre. The exact etiology is not certain. 3. The stomach is distended with significant amount of stool throughout the co cinthya without signs of small bowel obstruction. Abdomen X-Ray 02/16/18 0000 Signed Impressions: CONCLUSION: Benign-appearing abdomen. Objective Remarks Last Impressions GENERAL: NAD SKIN: Warm and dry. HEAD: Normocephalic. EYES: No scleral icterus. No injection or drainage. NECK: Supple, trachea midline. No JVD or lymphadenopathy. CARDIOVASCULAR: Regular rate and rhythm without murmurs, gallops, or rubs. RESPIRATORY: Breath sounds equal bilaterally. No accessory muscle use. GASTROINTESTINAL: Abdomen soft, non-tender, nondistended.+Ileal Conduit with clear yellow urine in bag . Colostomy bag in place LLQ MUSCULOSKELETAL: No cyanosis, +BLE edema. ; Scrotal edema BACK: Nontender without obvious deformity. No CVA tenderness. Procedures NONE A/P Problem List: (1) Intractable pain ICD Code: R52 - Pain, unspecified (2) Pelvic abscess (3) Osteomyelitis of pelvis ICD Code: M86.9 - Osteomyelitis, unspecified (4) Bladder cancer ICD Code: C67.9 - Malignant neoplasm of bladder, unspecified Status: Chronic Assessment and Plan 57-year-old man with Pelvic abscess with pelvis osteomyelitis CT of the abdomen/pelvis shows areas suspicious for infection s/p vancomycin, cefepime, Currently on p.o. Zyvox, Flagyl, Diflucan and Cipro per ID Patient prefers aggressive measures at this time over palliative/hospice options Patient may benefit from tertiary care center due to difficulty with addressing the location of this infection Appreciate infectious disease consult We will attempt again to discuss the case with [facility] Intractable pain Patient is currently on morphine, fentanyl patch and intermittent Dilaudid and Toradol scheduled Severe protein malnutrition Patient has had poor oral intake, poor sleep, chemotherapy for the past 7 months Continue to encourage p.o. intake and supplementation with Ensure History of bladder cancer Continue outpatient follow-up with oncologist Coronary artery disease Continue metoprolol Anasarca Continue Lasix DVT prophylaxis Heparin /SCD Chau King MD Feb 23, 2018 10:04
--- NOTE | 2018-02-23 14:06 | HHI.HCPN ---
Met with Mr. Longoria to continue ongoing support and assistance with symptom management. Mr. Longoria standing up next to bedside leaning on bedside table. Expressed continued comfort with standing over sitting or lying in bed. Requests "rollaids" or something similar verbalizing discomfort in his stomach. Palliative MD informed. Currently finishing lunch tray, friend bringing in outside food as well. Expressed he continues to try and eat as much as he can to gain weight and strength back. Informs me of call back from [facility], awaiting decision for transfer. Mr. Longoria did not complete advanced directives and declines completing them at this time. States he was too tired last night to have the conversation with his friend. Desires to speak with his friend again tonight prior to appointing him as HCS. Will follow-up. Palliative care will continue to follow throughout hospitalization. Catherine Ayers, ROLL MACHINE OPERATOR Feb 23, 2018 14:06
--- NOTE | 2018-02-23 14:44 | HHI.HCPN ---
Reason for visit a. To assist with evaluation and management of symptoms including: pelvic/ rectal pain; bone pain b. To assist medical decision maker(s) with: better understanding of current medical conditions; weighing benefits/burdens of medical treatment options; making medical treatment decisions. . Subjective/Interval History INTERVAL NOTE: The patient reports that his IV came out last evening, and it was not able to be replaced until about 10 AM today. Thus, he did not get PRN opiates during that time. The fentanyl was increased to 100 mcg yesterday, and now he has had the 1.5 mg dose of hydromorphone 3 times today, and he says that definitely helps.. Case management notes indicate a colorectal surgeon at [facility] is evaluating the case. The patient's only new complaint is that he gets "heartburn" and would like an antacid to use for that. He says at home he "chew a couple Rolaids" and that would help. Symptoms sound like typical dyspepsia. . Advance Directives Living Will: Completed, but not made available Health Care Surrogate: Completed, but not made available Durable Power of Blade Filer: Never completed Advance Directive Specifics Date completed: The patient has completed an advanced directive in the past. He is unsure of the date. He wants to update the information as in the past he had designated his girlfriend as his healthcare surrogate. They have since broken up. Patient has been given new advanced directive forms to complete. . 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 . Documented care wishes: We currently have no written documentation of the patient's healthcare goals and preferences. . Objective Vital Signs Date Time Temp Pulse Resp B/P (MAP) Pulse Ox O2 Delivery O2 Flow Rate FiO2 02/23/18 12:00 97.8 101 20 152/94 (113) 100 02/23/18 08:00 98.1 99 20 106/68 (81) 02/23/18 04:00 97.6 106 16 108/64 (79) 100 02/23/18 04:00 102 02/23/18 03:51 Room Air 02/23/18 00:00 97.8 107 18 95/57 (70) 99 6/6/18 00:00 108 02/23/18 00:00 Room Air 02/22/18 20:00 Room Air 02/22/18 20:00 97.7 100 16 97/74 (82) 97 02/22/18 20:00 101 02/22/18 18:34 91 02/22/18 16:28 99 Room Air 02/22/18 16:00 97.5 102 20 111/66 (81) Intake & Output 02/23/18 02/23/18 07:00 19:00 Intake Total 240 ml Balance 240 ml Intake Oral 240 ml Physical Exam CONSTITUTIONAL/GENERAL: This is a somewhat thin patient. The patient remains standing through the entire history and exam, since the pain is not as bad in that position. TUBES/LINES/DRAINS: Peripheral IV; ileal conduit CARDIOVASCULAR: Regular rate and rhythm without murmurs, gallops, or rubs. No JVD. Peripheral pulses symmetric. RESPIRATORY/CHEST: Symmetric, unlabored respirations. Clear to auscultation. Breath sounds equal bilaterally. No wheezes, rales, or rhonchi. GASTROINTESTINAL: Abdomen soft, non-tender, nondistended. No hepato-splenomegaly , or palpable masses. No guarding. Bowel sounds present. Ileal conduit MUSCULOSKELETAL: Extremities without clubbing, cyanosis. There is 3-4+ tense edema in both lower extremities. No calf tenderness. No mottling or clubbing. NEUROLOGICAL: Awake and alert. Motor and sensory grossly within normal limits. Follows commands. Cognitively sharp. Moves all extremities. PSYCHIATRIC: No obvious anxiety/depression. Patient expresses a great deal of anger regarding some of his medical care to date. No apparent hallucinations or other psychotic thought process. . Diagnostic Tests Laboratory Laboratory Tests Test 02/21/18 09:00 02/22/18 10:08 White Blood Count 13.4 TH/MM3 (4.0-11.0) 11.5 TH/MM3 (4.0-11.0) Red Blood Count 3.60 MIL/MM3 (4.50-5.90) 3.41 MIL/MM3 (4.50-5.90) Hemoglobin 10.3 GM/DL (13.0-17.0) 9.7 GM/DL (13.0-17.0) Hematocrit 32.8 % (39.0-51.0) 31.1 % (39.0-51.0) Mean Corpuscular Volume 91.1 FL (80.0-100.0) 91.0 FL (80.0-100.0) Mean Corpuscular Hemoglobin 28.6 PG (27.0-34.0) 28.5 PG (27.0-34.0) Mean Corpuscular Hemoglobin Concent 31.4 % (32.0-36.0) 31.4 % (32.0-36.0) Red Cell Distribution Width 18.8 % (11.6-17.2) 18.7 % (11.6-17.2) Platelet Count 363 TH/MM3 (150-450) 347 TH/MM3 (150-450) Mean Platelet Volume 7.5 FL (7.0-11.0) 7.4 FL (7.0-11.0) Neutrophils (%) (Auto) 88.8 % (16.0-70.0) 90.1 % (16.0-70.0) Lymphocytes (%) (Auto) 5.2 % (9.0-44.0) 4.1 % (9.0-44.0) Monocytes (%) (Auto) 4.5 % (0.0-8.0) 4.9 % (0.0-8.0) Eosinophils (%) (Auto) 1.1 % (0.0-4.0) 0.4 % (0.0-4.0) Basophils (%) (Auto) 0.4 % (0.0-2.0) 0.5 % (0.0-2.0) Neutrophils # (Auto) 11.9 TH/MM3 (1.8-7.7) 10.3 TH/MM3 (1.8-7.7) Lymphocytes # (Auto) 0.7 TH/MM3 (1.0-4.8) 0.5 TH/MM3 (1.0-4.8) Monocytes # (Auto) 0.6 TH/MM3 (0-0.9) 0.6 TH/MM3 (0-0.9) Eosinophils # (Auto) 0.1 TH/MM3 (0-0.4) 0.0 TH/MM3 (0-0.4) Basophils # (Auto) 0.1 TH/MM3 (0-0.2) 0.1 TH/MM3 (0-0.2) CBC Comment DIFF FINAL DIFF FINAL Differential Comment Blood Urea Nitrogen 43 MG/DL (7-18) 42 MG/DL (7-18) Creatinine 1.15 MG/DL (0.60-1.30) 1.17 MG/DL (0.60-1.30) Random Glucose 74 MG/DL (74-106) 99 MG/DL (74-106) Total Protein 6.9 GM/DL (6.4-8.2) 6.4 GM/DL (6.4-8.2) Albumin 2.6 GM/DL (3.4-5.0) 2.5 GM/DL (3.4-5.0) Calcium Level 8.0 MG/DL (8.5-10.1) 8.3 MG/DL (8.5-10.1) Phosphorus Level 2.6 MG/DL (2.5-4.9) 2.7 MG/DL (2.5-4.9) Magnesium Level 1.4 MG/DL (1.5-2.5) 1.4 MG/DL (1.5-2.5) Alkaline Phosphatase 111 U/L (45-117) 91 U/L (45-117) Aspartate Amino Transf (AST/SGOT) 24 U/L (15-37) 14 U/L (15-37) Alanine Aminotransferase (ALT/SGPT) 28 U/L (12-78) 22 U/L (12-78) Total Bilirubin 0.2 MG/DL (0.2-1.0) 0.3 MG/DL (0.2-1.0) Sodium Level 136 MEQ/L (136-145) 139 MEQ/L (136-145) Potassium Level 5.6 MEQ/L (3.5-5.1) 4.9 MEQ/L (3.5-5.1) Chloride Level 109 MEQ/L (98-107) 108 MEQ/L (98-107) Carbon Dioxide Level 18.3 MEQ/L (21.0-32.0) 19.2 MEQ/L (21.0-32.0) Anion Gap 9 MEQ/L (5-15) 12 MEQ/L (5-15) Estimat Glomerular Filtration Rate 66 ML/MIN (>89) 64 ML/MIN (>89) Hemoglobin A1c 5.8 % (4.3-6.0) Free Thyroxine 1.19 NG/DL (0.76-1.46) Thyroid Stimulating Hormone 3rd Gen 6.830 uIU/ML (0.358-3.740) Result Diagram: 02/22/18 1008 02/22/18 1008 Assessment and Plan Disease Oriented Problem List: (1) Small cell carcinoma of bladder Comment: Now with associated pelvic abscess; osteomyelitis of the pubic symphysis; and likely pulmonary mets. . (2) Coronary artery disease Comment: Two recent MIs since Jul 2017 with stenting. . (3) Recent myocardial infarction Comment: MIs in Jul 2017 and again in December 2017. . (4) Ischemic cardiomyopathy (5) Pelvic abscess (6) Osteomyelitis of pelvis (7) Intractable pain Symptom Scale: (1) Pelvic pain in male 0-10 Scale: 10 (2) Edema 0-10 Scale: 10 Pertinent Non-Medical Issues Psychosocial: Recently broke up from intermediate card tender girlfriend. Father in 2016. Mostly estranged from his one daughter. His local brother and mother are his main psychosocial support. 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 Spiritual: "I'm a believer." Not a member of any local amelia group. Ambivalent about cable tv installer visits. Legal: Wants to re-write living will now that he has broken up from his intermediate girl friend. Ethical issues impacting care: Currently capacitated to make his own health care decision. . Important Contacts * Ari Longoria (brother) [phone] * Dallin Davidson (friend/ verbally requested [facility]): . Prognosis This unfortunate man will probably require further complicated surgery to help eradicate infection. He is at high surgical risk because of the recent two heart attacks. Colorectal surgery has indicated that surgery, if an option, would need to be addressed in a tertiary medical center. Pt has had maximal radiation so additional chemotherapy remains his only option for cancer directed therapy. Patient reports cancer is now spread to lung. He is currently a poor candidate for chemotherapy because of his infection and cachexia. Without aggressive treatment directed at eradicating the infection and addressing his cancer, life expectancy may be in the order of weeks to months. Should the patient opt to forego further aggressive care or should there be no further options available at a tertiary center, he would be a candidate for hospice care. . Code Status: Full Code Plan == Code Status: FULL CODE per discussion of 02/21/18 == Decision Making: Pt is currently capacitated to make his own health care decisions. Should he become incapacitated he has designated his friend-- Dallin Davidson -- to be his health care surrogate. == Goals of medical treatment: Pt is young, determined to fight, and wants to be evaluated in a tertiary [facility] center to see if there is more that can be done to prolong his life. == Symptoms: * Pain: Pain is primarily in the perineal area between rectum and scrotum. Pain reaches #10 level daily and is described as stabbing. It is much worse when he attempts to lie down and he therefore stays standing or in a kneeling position day and night. Pain has been helped by iv opioids. He has not found an oral regimen that has been helpful but equianalgesic doses appear to have been much lower than inpatient parenteral doses. Fentanyl was increased to 100 mcg transdermal on 02/22/18. Patient has been approved for medical marijuana and says that marijuana helps with pain and appetite. * Edema: Patient reports that edema has only begun after his second SD about one month ago. He says the sewing machines salesperson told him he lost 26% of his cardiac output. * Cachexia: Has lost 45 lbs since diagnosis. Steroids helping with appetite. PLAN == Provided patient with advance directive document to complete. He wanted to replace out-of-date ones which listed an ex-girlfriend as his health care surrogate. == Case management working to find accepting tertiary [facility] center. We will focus on symptom (pain) management and infection control pending transfer. == If no transfer is possible, or if [facility] has nothing more to offer, we will need to re-address goals including code status and hospice care. == He has been diagnosed with cancer recurrence, suffered two MIs, lost his father, and had a break-up of a 16 year relationships all since July. Palliative care will try to offer additional psychosocial support. == I will add an antacid that he can use PRN for his chronic/recurrent dyspepsia. == Palliative care will continue to follow to assist with symptom management and further clarify goals of medical treatment as the clinical course evolves. . Time Spent Total Floor Time (mins): 27 Face to Face Time (mins): 16 >50% Counseling/Coord of Care: Yes Attestation To help prompt me to consider important information that might be impacting today's encounter and assessment, information from prior notes written by myself or my colleagues may have been "brought forward" into today's note. My signature on this note, however, is an attestation that I personally performed the exam, history, and/or decision-making noted today, and, unless otherwise indicated, the interactions with patient, family, and staff as well as the review of records all occurred today. I also attest that the listed assessment and stated plan reflect my best clinical judgment today based on the combination of historical information, prior notes, and today's exam/ interactions. When time spent is documented, it refers only to time spent today by the signer, or if indicated, combined time spent today by collaborating physician/nurse practitioner. Pauline Vera MD Feb 23, 2018 14:44
[2018-02-23] MEDS: CALCIUM CARBONATE 500 MG CHEWABLE TAB CHEW PRN (20:23)
[2018-02-24] VITALS (11 sets, daily range): BP systolic 92–103; BP diastolic 61–75; PULSE 99–120; RESP 16–20; TEMP 97.2–97.8; O2SAT 98–100
[2018-02-24] MEDS: HYDROmorphone HCL PF 2 MG/ML VIAL IV PUSH PRN ×3 (03:43→11:46)
[2018-02-24 05:37] LABS: AUTOMATED NEUTROPHIL # 11.8 TH/MM3 (1.8-7.7); BASOPHIL # 0.1 TH/MM3 (0-0.2); BASOPHIL % 0.5 % (0.0-2.0); EOSINOPHIL # 0.1 TH/MM3 (0-0.4); EOSINOPHIL % 0.7 % (0.0-4.0); HEMATOCRIT 31.3 % (39.0-51.0); HEMOGLOBIN 9.7 GM/DL (13.0-17.0); LYMPH % 5.9 % (9.0-44.0); LYMPHOCYTE # 0.8 TH/MM3 (1.0-4.8); MEAN CELL VOLUME 91.3 FL (80.0-100.0); MEAN CORPUSCULAR HEMOGLOBIN 28.4 PG (27.0-34.0); MEAN CORPUSCULAR HGB CONC 31.1 % (32.0-36.0); MEAN PLATELET VOLUME 7.7 FL (7.0-11.0); MONO % 4.6 % (0.0-8.0); MONOCYTE # 0.6 TH/MM3 (0-0.9); NEUT % 88.3 % (16.0-70.0); PLATELET COUNT 393 TH/MM3 (150-450); RED BLOOD COUNT 3.43 MIL/MM3 (4.50-5.90); RED CELL DISTRIBUTION WIDTH 18.5 % (11.6-17.2); WHITE BLOOD COUNT 13.4 TH/MM3 (4.0-11.0)
[2018-02-24] MEDS: HEPARIN SODIUM - SQ 10,000 UNITS/ML VIAL SQ SCH ×2 (06:11→17:59)
[2018-02-24] MEDS: metroNIDAZOLE 500 MG TAB PO SCH ×3 (06:11→21:09)
[2018-02-24] MEDS: GABAPENTIN 300 MG CAP PO SCH ×3 (08:04→18:01)
[2018-02-24] MEDS: METOPROLOL SUCCINATE 25 MG EXTENDED RELEASE TAB PO SCH (08:04)
[2018-02-24] MEDS: SODIUM CHLORIDE 0.9% FLUSH 10 ML FLUSH IV FLUSH SCH ×2 (08:05→19:48)
[2018-02-24] MEDS: CIPROFLOXACIN 500 MG TAB PO SCH ×2 (08:05→21:09)
[2018-02-24] MEDS: FLUCONAZOLE 100 MG TAB PO SCH (08:05)
[2018-02-24] MEDS: FUROSEMIDE 20 MG TAB PO SCH (08:05)
[2018-02-24] MEDS: LINEZOLID 600 MG TAB PO SCH ×2 (08:05→21:09)
--- NOTE | 2018-02-24 13:03 | HHI.PR ---
Subjective Remarks Follow up pelvic abscess and pelvic pubic symphysis osteomyelitis February 22, 2018-patient seen and examined, no acute event overnight, currently afebrile, states he is not ready for hospice. February 23, 2018-patient seen and examined, stable overnight and no acute event. Case was discussed yesterday with hospitalist at [facility] regarding possible transfer. Patient lost his IV access February 24, 2018-patient seen and examined, discussed with patient regarding possible hospice and states he will let me know about his answer tomorrow. Requesting more stronger narcotics. Objective Vitals Vital Signs Date Time Temp Pulse Resp B/P (MAP) Pulse Ox O2 Delivery O2 Flow Rate FiO2 02/24/18 08:02 103 02/24/18 08:00 97.3 101 20 101/69 (80) 100 02/24/18 07:00 Room Air 02/24/18 04:00 Room Air 02/24/18 04:00 97.3 110 20 100/75 (83) 98 02/24/18 03:57 99 02/24/18 00:01 100 02/24/18 00:00 Room Air 02/24/18 00:00 97.2 102 18 103/61 (75) 98 02/23/18 20:15 103 02/23/18 20:00 Room Air 02/23/18 20:00 97.2 108 18 97/70 (79) 100 02/23/18 16:00 97.3 104 20 105/64 (78) 02/23/18 16:00 96 I/O 02/23/18 02/23/18 02/23/18 02/24/18 02/24/18 02/24/18 07:00 15:00 23:00 07:00 15:00 23:00 Intake Total 240 ml 600 ml 960 ml Output Total 750 ml 2300 ml Balance 240 ml -150 ml -1340 ml Intake Oral 240 ml 600 ml 960 ml Output Urine Total 750 ml 1500 ml Stool Total 800 ml # Bowel Movements 2 Result Diagram: 02/24/18 0340 02/22/18 1008 Objective Remarks Last Impressions GENERAL: NAD SKIN: Warm and dry. HEAD: Normocephalic. EYES: No scleral icterus. No injection or drainage. NECK: Supple, trachea midline. No JVD or lymphadenopathy. CARDIOVASCULAR: Regular rate and rhythm without murmurs, gallops, or rubs. RESPIRATORY: Breath sounds equal bilaterally. No accessory muscle use. GASTROINTESTINAL: Abdomen soft, non-tender, nondistended.+Ileal Conduit with clear yellow urine in bag . Colostomy bag in place LLQ MUSCULOSKELETAL: No cyanosis, +BLE edema. ; Scrotal edema BACK: Nontender without obvious deformity. No CVA tenderness. Procedures NONE A/P Problem List: (1) Intractable pain ICD Code: R52 - Pain, unspecified (2) Pelvic abscess (3) Osteomyelitis of pelvis ICD Code: M86.9 - Osteomyelitis, unspecified (4) Bladder cancer ICD Code: C67.9 - Malignant neoplasm of bladder, unspecified Status: Chronic Assessment and Plan 57-year-old man with Pelvic abscess with pelvis osteomyelitis CT of the abdomen/pelvis shows areas suspicious for infection s/p vancomycin, cefepime, Currently on p.o. Zyvox, Flagyl, Diflucan and Cipro per ID Patient prefers aggressive measures at this time over palliative/hospice options Patient may benefit from tertiary care center due to difficulty with addressing the location of this infection Appreciate infectious disease consult Intractable pain Patient is currently on morphine, fentanyl patch and intermittent Dilaudid and Toradol scheduled Severe protein malnutrition Patient has had poor oral intake, poor sleep, chemotherapy for the past 7 months Continue to encourage p.o. intake and supplementation with Ensure History of bladder cancer Continue outpatient follow-up with oncologist Coronary artery disease Continue metoprolol Anasarca Continue Lasix DVT prophylaxis Heparin /SCD Chau King MD Feb 24, 2018 13:03
[2018-02-24] MEDS: MORPHINE SULFATE 8 MG/ML INJ IV PUSH PRN ×2 (15:52→19:48)
[2018-02-25] VITALS (12 sets, daily range): BP systolic 94–110; BP diastolic 51–84; PULSE 54–122; RESP 14–22; TEMP 97.5–98.1; O2SAT 96–100
[2018-02-25] MEDS: MORPHINE SULFATE 8 MG/ML INJ IV PUSH PRN ×4 (04:44→17:01)
[2018-02-25] MEDS: CALCIUM CARBONATE 500 MG CHEWABLE TAB CHEW PRN (04:45)
[2018-02-25] MEDS: SODIUM CHLORIDE 0.9% FLUSH 10 ML FLUSH IV FLUSH PRN ×2 (04:45)
[2018-02-25] MEDS: HEPARIN SODIUM - SQ 10,000 UNITS/ML VIAL SQ SCH ×2 (06:20→16:59)
[2018-02-25] MEDS: metroNIDAZOLE 500 MG TAB PO SCH ×3 (06:20→20:12)
[2018-02-25] MEDS: GABAPENTIN 300 MG CAP PO SCH ×3 (08:12→16:59)
[2018-02-25] MEDS: SODIUM CHLORIDE 0.9% FLUSH 10 ML FLUSH IV FLUSH SCH ×2 (08:12→20:12)
[2018-02-25] MEDS: CIPROFLOXACIN 500 MG TAB PO SCH ×2 (08:12→20:12)
[2018-02-25] MEDS: METOPROLOL SUCCINATE 25 MG EXTENDED RELEASE TAB PO SCH (08:13)
[2018-02-25] MEDS: LINEZOLID 600 MG TAB PO SCH ×2 (08:13→20:12)
[2018-02-25] MEDS: FUROSEMIDE 20 MG TAB PO SCH (08:13)
[2018-02-25] MEDS: FLUCONAZOLE 100 MG TAB PO SCH (08:13)
--- NOTE | 2018-02-25 10:28 | PD.ONC.PN ---
Subjective Subjective Remarks Afebrile overnight. Patient having a bit of pain in pelvis/testicles this AM. He says his pain was increased since the pain medication was decreased to a q2 hours interval. standing up to eat breakfast as pain is improved with standing as opposed to sitting. Objective Data Date Time Temp Pulse Resp B/P (MAP) Pulse Ox O2 Delivery O2 Flow Rate FiO2 02/25/18 08:00 98.0 96 14 99/66 (77) 99 02/25/18 08:00 90 02/25/18 08:00 100 Room Air 02/25/18 06:46 Room Air 02/25/18 06:46 103 20 98/52 (67) 99 02/25/18 05:45 Room Air 02/25/18 05:45 98.1 106 20 100/51 (67) 98 02/25/18 04:43 109 22 94/68 (77) 98 02/25/18 04:43 Room Air 02/25/18 04:03 118 02/25/18 03:45 97.5 122 20 100/84 (89) 96 02/25/18 03:45 Room Air 02/25/18 00:46 107 02/25/18 00:00 98.0 111 18 102/76 (85) 100 02/25/18 00:00 Room Air 02/24/18 20:43 99 02/24/18 20:00 97.8 102 20 100/71 (81) 98 02/24/18 20:00 Room Air 02/24/18 16:00 102 02/24/18 16:00 97.5 105 16 96/73 (81) 98 02/24/18 12:00 120 02/24/18 12:00 97.6 105 20 92/69 (77) 100 02/25/18 02/25/18 02/25/18 07:00 15:00 23:00 Intake Total 960 ml Output Total 1900 ml Balance -940 ml Result Diagram: 02/24/18 0340 02/22/18 1008 Administered Medications Medications (Trade) Dose Ordered Sig/Bruno Route PRN Reason Start Time Stop Time Status Last Admin Dose Admin Sodium Chloride (NS Flush) 2 ml UNSCH PRN IV FLUSH FLUSH AFTER USING IV ACCESS 02/17/18 01:30 02/25/18 04:45 Sodium Chloride (NS Flush) 2 ml BID IV FLUSH 02/17/18 09:00 02/25/18 08:12 Furosemide (Lasix) 20 mg DAILY PO 02/17/18 09:00 02/25/18 08:13 Gabapentin (Neurontin) 300 mg TID PO 02/17/18 09:00 02/25/18 08:12 Metoprolol Succinate (Toprol Xl) 25 mg DAILY PO 02/17/18 09:00 02/24/18 08:04 Morphine Sulfate (Morphine Inj) 5 mg Q4H PRN IV PUSH PAIN SCALE 2-5 02/17/18 11:15 02/25/18 09:17 Metronidazole (Flagyl) 500 mg Q8HR PO 02/17/18 16:00 02/25/18 06:20 Fluconazole (Diflucan) 100 mg DAILY PO 02/17/18 16:00 02/25/18 08:13 Heparin Sodium (Porcine) (Heparin Inj) 5,000 units Q12H SQ 02/19/18 18:00 02/25/18 06:20 Ciprofloxacin (Cipro) 500 mg Q12HR PO 02/21/18 21:00 02/25/18 08:12 Linezolid (Zyvox) 600 mg Q12HR PO 02/21/18 21:00 02/25/18 08:13 Hydromorphone HCl (Dilaudid Pf Inj) 1.5 mg Q4H PRN IV PUSH pain 6-10 02/22/18 16:00 02/24/18 11:46 Fentanyl (Duragesic 100 Mcg Patch.72 Hr) 1 patch Q3D T-DERMAL 02/22/18 15:00 02/22/18 17:17 Calcium Carbonate (Tums Chew) 500 mg Q8H PRN CHEW dyspepsia 02/23/18 14:45 02/25/18 04:45 Objective Remarks GENERAL: Middle aged male, standing up eating breakfast in room. SKIN: Warm and dry. HEAD: Normocephalic. EYES: No injection or drainage. NECK: Supple, trachea midline. CARDIOVASCULAR: +S1/S2, tachy RESPIRATORY: Breath sounds equal bilaterally. No accessory muscle use. GASTROINTESTINAL: Abdomen soft, non-tender, nondistended. colostomy bag and ileal conduit are both in place. EXTREMITIES: No cyanosis NEUROLOGICAL: awake and alert. normal speech. moving all extremities. Assessment/Plan Assessment 57y/o male with Locally recurrent bladder cancer and Pelvic infection. history of bladder cancer, known pelvic abscess, coronary artery disease, status post DC x 2 Plan 1. 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 --s/p chemotherapy, radiation therapy, surgery for local recurrence of disease with repeat radiation therapy as well as most recent chemotherapy under the direction of Dr. Chau Khan 3 weeks prior to admission --recommend follow up upon discharge with patient's oncologist Dr. Kahn. Patient expresses he may not want to follow up with Dr. Khan. I will place our contact information on discharge instructions in case Mr. Longoria prefers to follow up with us. As we have nothing else to offer him at the present while he is inpatient, oncology will sign off. Please call us if he can provide any further assistance. 2. osteomyelitis and pelvic abscess--treatment per infectious disease Attending Statement The exam, history, and the medical decision-making described in the above note were completed with the assistance of the mid-level provider. I reviewed and agree with the findings presented. I attest that I had a [id number] encounter with the patient on the same day, and personally performed and documented my assessment and findings in the medical record. recurrent sarcomatoid urothelial cancer in the pelvis s/p chemotherapy, radiation therapy and surgery. Now with pelvic infection and severe pain. No further chemotherapy at this point until infection is resolved. Follow up with oncology in outpatient setting. Nely Ambriz Feb 25, 2018 10:28 Liset Strange MD Feb 26, 2018 07:04
--- NOTE | 2018-02-25 12:39 | HHI.HCPN ---
Reason for visit a. To assist with evaluation and management of symptoms including: pelvic/ rectal pain; bone pain b. To assist medical decision maker(s) with: better understanding of current medical conditions; weighing benefits/burdens of medical treatment options; making medical treatment decisions. . Subjective/Interval History INTERVAL NOTE: The patient reports that his pain continues. It still is better when he is standing rather than laying down or sitting, and the breakthrough morphine helps "for a couple hours". No dyspnea or nausea. None of the various consultants from [facility] have accepted the patient in transfer. I had an honest discussion with the patient, reminding him that the experts at the tertiary center do not feel that additional surgery is appropriate, and I discussed with the patient the option of changing the focus to comfort care, focusing on getting his pain under control and making each day that he has left as good as it can be. He wants to talk to hospice. . Advance Directives Living Will: Completed, but not made available Health Care Surrogate: Completed, but not made available Durable Power of [place]baller: Never completed Advance Directive Specifics Date completed: The patient has completed an advanced directive in the past. He is unsure of the date. He wants to update the information as in the past he had designated his girlfriend as his healthcare surrogate. They have since broken up. Patient has been given new advanced directive forms to complete. . 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 . Documented care wishes: We currently have no written documentation of the patient's healthcare goals and preferences. . Significant change in goals: Patient requests hospice consult, likely will need to go to the [facility] for a couple days and then get back home with hospice care. . Objective Vital Signs Date Time Temp Pulse Resp B/P (MAP) Pulse Ox O2 Delivery O2 Flow Rate FiO2 02/25/18 08:00 98.0 96 14 99/66 (77) 99 02/25/18 08:00 90 02/25/18 08:00 100 Room Air 02/25/18 06:46 Room Air 02/25/18 06:46 103 20 98/52 (67) 99 02/25/18 05:45 Room Air 02/25/18 05:45 98.1 106 20 100/51 (67) 98 02/25/18 04:43 109 22 94/68 (77) 98 02/25/18 04:43 Room Air 02/25/18 04:03 118 02/25/18 03:45 97.5 122 20 100/84 (89) 96 02/25/18 03:45 Room Air 02/25/18 00:46 107 02/25/18 00:00 98.0 111 18 102/76 (85) 100 02/25/18 00:00 Room Air 02/24/18 20:43 99 02/24/18 20:00 97.8 102 20 100/71 (81) 98 02/24/18 20:00 Room Air 02/24/18 16:00 102 02/24/18 16:00 97.5 105 16 96/73 (81) 98 Intake & Output 02/25/18 02/25/18 07:00 19:00 Intake Total 960 ml Output Total 1900 ml Balance -940 ml Intake Oral 960 ml Output Urine Total 1500 ml Stool Total 400 ml Physical Exam CONSTITUTIONAL/GENERAL: This is a somewhat thin patient. The patient remains standing through the entire history and exam, since the pain is not as bad in that position. TUBES/LINES/DRAINS: Peripheral IV; ileal conduit CARDIOVASCULAR: Regular rate and rhythm without murmurs, gallops, or rubs. No JVD. Peripheral pulses symmetric. RESPIRATORY/CHEST: Symmetric, unlabored respirations. Clear to auscultation. Breath sounds equal bilaterally. No wheezes, rales, or rhonchi. GASTROINTESTINAL: Abdomen soft, non-tender, nondistended. No hepato-splenomegaly , or palpable masses. No guarding. Bowel sounds present. Ileal conduit MUSCULOSKELETAL: Extremities without clubbing, cyanosis. There is 3-4+ tense edema in both lower extremities. No calf tenderness. No mottling or clubbing. NEUROLOGICAL: Awake and alert. Motor and sensory grossly within normal limits. Follows commands. Cognitively sharp. Moves all extremities. PSYCHIATRIC: No obvious anxiety/depression. Patient expresses less anger now. No apparent hallucinations or other psychotic thought process. . Diagnostic Tests Laboratory Laboratory Tests Test 02/24/18 03:40 White Blood Count 13.4 TH/MM3 (4.0-11.0) Red Blood Count 3.43 MIL/MM3 (4.50-5.90) Hemoglobin 9.7 GM/DL (13.0-17.0) Hematocrit 31.3 % (39.0-51.0) Mean Corpuscular Volume 91.3 FL (80.0-100.0) Mean Corpuscular Hemoglobin 28.4 PG (27.0-34.0) Mean Corpuscular Hemoglobin Concent 31.1 % (32.0-36.0) Red Cell Distribution Width 18.5 % (11.6-17.2) Platelet Count 393 TH/MM3 (150-450) Mean Platelet Volume 7.7 FL (7.0-11.0) Neutrophils (%) (Auto) 88.3 % (16.0-70.0) Lymphocytes (%) (Auto) 5.9 % (9.0-44.0) Monocytes (%) (Auto) 4.6 % (0.0-8.0) Eosinophils (%) (Auto) 0.7 % (0.0-4.0) Basophils (%) (Auto) 0.5 % (0.0-2.0) Neutrophils # (Auto) 11.8 TH/MM3 (1.8-7.7) Lymphocytes # (Auto) 0.8 TH/MM3 (1.0-4.8) Monocytes # (Auto) 0.6 TH/MM3 (0-0.9) Eosinophils # (Auto) 0.1 TH/MM3 (0-0.4) Basophils # (Auto) 0.1 TH/MM3 (0-0.2) CBC Comment DIFF FINAL Differential Comment Result Diagram: 02/24/18 0340 02/22/18 1008 Assessment and Plan Disease Oriented Problem List: (1) Small cell carcinoma of bladder Comment: Now with associated pelvic abscess; osteomyelitis of the pubic symphysis; and likely pulmonary mets. . (2) Coronary artery disease Comment: Two recent MIs since Jul 2017 with stenting. . (3) Recent myocardial infarction Comment: MIs in Jul 2017 and again in December 2017. . 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 Father in 2016. Mostly estranged from his one daughter. His local brother and mother are his main psychosocial support. 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 Spiritual: "I'm a believer." Not a member of any local amelia group. Ambivalent about resort housekeeper visits. Legal: Wants to re-write living will now that he has broken up from his intermodal dispatcher girl friend. Ethical issues impacting care: Currently capacitated to make his own health care decision. . Important Contacts * Ari Longoria (brother) [phone] * Dallin Davidson (friend/ verbally requested HCS): . Prognosis This unfortunate man will probably require further complicated surgery to help eradicate infection. He is at high surgical risk because of the recent two heart attacks. Colorectal surgery has indicated that surgery, if an option, would need to be addressed in a tertiary medical center. Pt has had maximal radiation so additional chemotherapy remains his only option for cancer directed therapy. Patient reports cancer is now spread to lung. He is currently a poor candidate for chemotherapy because of his infection and cachexia. Without aggressive treatment directed at eradicating the infection and addressing his cancer, life expectancy may be in the order of weeks to months. Should the patient opt to forego further aggressive care or should there be no further options available at a tertiary center, he would be a candidate for hospice care. . Code Status: Full Code Plan == Code Status: FULL CODE per discussion of 02/21/18 -will be readdressed in his hospice discussions. == Decision Making: Pt is currently capacitated to make his own health care decisions. Should he become incapacitated he has designated his friend-- Dallin Davidson -- to be his health care surrogate. == Goals of medical treatment: The patient wants to change the focus now to comfort care, focusing on getting his pain under control for however many days or weeks he has remaining.. == Hospice consult placed. == Symptoms: * Pain: He remains on scheduled fentanyl and breakthrough morphine/ hydromorphone. The medications will now be managed by hospice. == Palliative care will continue to follow to assist with symptom management and further clarify goals of medical treatment as the clinical course evolves. . Time Spent Total Floor Time (mins): 37 Face to Face Time (mins): 28 >50% Counseling/Coord of Care: Yes Attestation To help prompt me to consider important information that might be impacting today's encounter and assessment, information from prior notes written by myself or my colleagues may have been "brought forward" into today's note. My signature on this note, however, is an attestation that I personally performed the exam, history, and/or decision-making noted today, and, unless otherwise indicated, the interactions with patient, family, and staff as well as the review of records all occurred today. I also attest that the listed assessment and stated plan reflect my best clinical judgment today based on the combination of historical information, prior notes, and today's exam/ interactions. When time spent is documented, it refers only to time spent today by the signer, or if indicated, combined time spent today by collaborating physician/nurse practitioner. Pauline Vera MD Feb 25, 2018 12:39
[2018-02-25] MEDS: HYDROmorphone HCL PF 2 MG/ML VIAL IV PUSH PRN ×2 (13:17→20:13)
--- NOTE | 2018-02-25 13:51 | HHI.PR ---
Subjective Remarks Recurrent urothelial cancer Still with significant pain Objective Vital Signs Date Time Temp Pulse Resp B/P (MAP) Pulse Ox O2 Delivery O2 Flow Rate FiO2 02/25/18 12:00 96 Room Air 02/25/18 12:00 95 02/25/18 12:00 97.9 108 18 103/55 (71) 96 02/25/18 08:00 98.0 96 14 99/66 (77) 99 02/25/18 08:00 90 02/25/18 08:00 100 Room Air 02/25/18 06:46 Room Air 02/25/18 06:46 103 20 98/52 (67) 99 02/25/18 05:45 Room Air 02/25/18 05:45 98.1 106 20 100/51 (67) 98 02/25/18 04:43 109 22 94/68 (77) 98 02/25/18 04:43 Room Air 02/25/18 04:03 118 02/25/18 03:45 97.5 122 20 100/84 (89) 96 02/25/18 03:45 Room Air 02/25/18 00:46 107 02/25/18 00:00 98.0 111 18 102/76 (85) 100 02/25/18 00:00 Room Air 02/24/18 20:43 99 02/24/18 20:00 97.8 102 20 100/71 (81) 98 02/24/18 20:00 Room Air 02/24/18 16:00 102 02/24/18 16:00 97.5 105 16 96/73 (81) 98 I/O 02/24/18 02/24/18 02/24/18 02/25/18 02/25/18 02/25/18 07:00 15:00 23:00 07:00 15:00 23:00 Intake Total 960 ml 960 ml 960 ml Output Total 2300 ml 850 ml 1900 ml Balance -1340 ml 110 ml -940 ml Intake Oral 960 ml 960 ml 960 ml Output Urine Total 1500 ml 850 ml 1500 ml Stool Total 800 ml 400 ml # Bowel Movements 1 Result Diagram: 02/24/18 0340 02/22/18 1008 Objective Remarks cachectic Assessment and Plan Assessment and Plan Recurrent urothelial cancer - Hospice consulted THIS PATIENT DOES NOT HAVE A PELVIC ABSCESS, BUT DOES HAVE PELVIC OSTEOMYELITIS. The fluid seen in the rectum on CT scan is mucus being secreted into the rectum by the very large recurrent cancer growing down into the rectum. The pain is also from the tumor. He does not NEED surgery for the infection. I suggested a tertiary care center for the unlikely event that a pelvic exenteration might be possible to remove his recurrent cancer. I will sign off. He has no need of colorectal intervention. Raegan Junior MD Feb 25, 2018 13:51
--- NOTE | 2018-02-25 13:57 | HHI.PR ---
Subjective Remarks Follow up pelvic abscess and pelvic pubic symphysis osteomyelitis February 22, 2018-patient seen and examined, no acute event overnight, currently afebrile, states he is not ready for hospice. February 23, 2018-patient seen and examined, stable overnight and no acute event. Case was discussed yesterday with hospitalist at [facility] regarding possible transfer. Patient lost his IV access February 24, 2018-patient seen and examined, discussed with patient regarding possible hospice and states he will let me know about his answer tomorrow. Requesting more stronger narcotics. February 252017-patient seen and examined, continues to complaint of uncontrolled pain; discussed with Palliative MD, patient is being discharged to hospice Objective Vitals Vital Signs Date Time Temp Pulse Resp B/P (MAP) Pulse Ox O2 Delivery O2 Flow Rate FiO2 02/25/18 12:00 96 Room Air 02/25/18 12:00 95 02/25/18 12:00 97.9 108 18 103/55 (71) 96 02/25/18 08:00 98.0 96 14 99/66 (77) 99 02/25/18 08:00 90 02/25/18 08:00 100 Room Air 02/25/18 06:46 Room Air 02/25/18 06:46 103 20 98/52 (67) 99 02/25/18 05:45 Room Air 02/25/18 05:45 98.1 106 20 100/51 (67) 98 02/25/18 04:43 109 22 94/68 (77) 98 02/25/18 04:43 Room Air 02/25/18 04:03 118 02/25/18 03:45 97.5 122 20 100/84 (89) 96 02/25/18 03:45 Room Air 02/25/18 00:46 107 02/25/18 00:00 98.0 111 18 102/76 (85) 100 02/25/18 00:00 Room Air 02/24/18 20:43 99 02/24/18 20:00 97.8 102 20 100/71 (81) 98 02/24/18 20:00 Room Air 02/24/18 16:00 102 02/24/18 16:00 97.5 105 16 96/73 (81) 98 I/O 02/24/18 02/24/18 02/24/18 02/25/18 02/25/18 6/8/18 07:00 15:00 23:00 07:00 15:00 23:00 Intake Total 960 ml 960 ml 960 ml Output Total 2300 ml 850 ml 1900 ml Balance -1340 ml 110 ml -940 ml Intake Oral 960 ml 960 ml 960 ml Output Urine Total 1500 ml 850 ml 1500 ml Stool Total 800 ml 400 ml # Bowel Movements 1 Result Diagram: 02/24/18 0340 02/22/18 1008 Objective Remarks Last Impressions GENERAL: NAD SKIN: Warm and dry. HEAD: Normocephalic. EYES: No scleral icterus. No injection or drainage. NECK: Supple, trachea midline. No JVD or lymphadenopathy. CARDIOVASCULAR: Regular rate and rhythm without murmurs, gallops, or rubs. RESPIRATORY: Breath sounds equal bilaterally. No accessory muscle use. GASTROINTESTINAL: Abdomen soft, non-tender, nondistended.+Ileal Conduit with clear yellow urine in bag . Colostomy bag in place LLQ MUSCULOSKELETAL: No cyanosis, +BLE edema. ; Scrotal edema BACK: Nontender without obvious deformity. No CVA tenderness. Procedures NONE A/P Problem List: (1) Intractable pain ICD Code: R52 - Pain, unspecified (2) Pelvic abscess (3) Osteomyelitis of pelvis ICD Code: M86.9 - Osteomyelitis, unspecified (4) Bladder cancer ICD Code: C67.9 - Malignant neoplasm of bladder, unspecified Status: Chronic Assessment and Plan 57-year-old man with Pelvic abscess with pelvis osteomyelitis CT of the abdomen/pelvis shows areas suspicious for infection s/p vancomycin, cefepime, Currently on p.o. Zyvox, Flagyl, Diflucan and Cipro per ID Patient prefers aggressive measures at this time over palliative/hospice options Patient may benefit from tertiary care center due to difficulty with addressing the location of this infection Appreciate infectious disease consult Intractable pain Patient is currently on morphine, fentanyl patch and intermittent Dilaudid and Toradol scheduled Severe protein malnutrition Patient has had poor oral intake, poor sleep, chemotherapy for the past 7 months Continue to encourage p.o. intake and supplementation with Ensure History of bladder cancer Continue outpatient follow-up with oncologist Coronary artery disease Continue metoprolol Anasarca Continue Lasix DVT prophylaxis Heparin /SCD hose Patient will be discharged to hospice today Chau Rose MD Feb 25, 2018 13:57
[2018-02-25] MEDS ORDERED: REMOVE OLD DURAGESIC (FENTANYL) PATCH T-DERMAL SCH (15:00)
[2018-02-25] MEDS: fentaNYL 100 MCG/HR PATCH T-DERMAL SCH (17:00)
[2018-02-25] MEDS ORDERED: ZYVO600T PO (18:13)
[2018-02-25] MEDS ORDERED: DIFL100T PO (18:13)
--- NOTE | 2018-02-25 18:17 | HHI.DS ---
Discharge Summary Admission Date February 16, 2018 at 23:12 Discharge Date: Feb 25, 2018 Admitting Diagnosis sepsis; h/o pelvic osteomyelitis; bladder CA (1) Intractable pain ICD Code: R52 - Pain, unspecified (2) Pelvic abscess (3) Osteomyelitis of pelvis ICD Code: M86.9 - Osteomyelitis, unspecified (4) Bladder cancer ICD Code: C67.9 - Malignant neoplasm of bladder, unspecified Status: Chronic Procedures NONE Brief History - From Admission 57-year-old male with a past medical history significant for bladder cancer, known pelvic abscess/infection and coronary disease status post MS 2 presents to the emergency department for the evaluation of pelvic pain that is not improving. The patient has an oncologist and infectious disease specialist at [facility] however he states he wanted to come to [place] for second opinion as he is compliant with his medication and his pain is not improving. The patient underwent prostatectomy with ileal conduit performed at [facility] in September 2016. He is status post chemotherapy and radiation therapy that was complicated by a DVT. 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 Subsequently developed pyuria from the urethra and a CT scan done in September 2017 identified a fluid collection in the pelvis concerning for an abscess. The patient was treated in [facility] for approximately 3 months (discharged 3 weeks ago) where he was treated with Zosyn, oral Diflucan and oral Cipro. Patient was discharged on Flagyl and Cipro with which he reports compliance. Of note the patient reports he ran out of his pain medication approximately 1 week ago. Patient denies any chest pain or shortness of breath. No fevers/chills. Positive pelvic pain. No nausea/vomiting/diarrhea. No lateralizing signs/ symptoms. CBC/BMP: 02/24/18 0340 02/22/18 1008 Significant Findings Laboratory Tests Test 02/24/18 03:40 White Blood Count 13.4 TH/MM3 (4.0-11.0) Red Blood Count 3.43 MIL/MM3 (4.50-5.90) Hemoglobin 9.7 GM/DL (13.0-17.0) Hematocrit 31.3 % (39.0-51.0) Mean Corpuscular Hemoglobin Concent 31.1 % (32.0-36.0) Red Cell Distribution Width 18.5 % (11.6-17.2) Neutrophils (%) (Auto) 88.3 % (16.0-70.0) Lymphocytes (%) (Auto) 5.9 % (9.0-44.0) Neutrophils # (Auto) 11.8 TH/MM3 (1.8-7.7) Lymphocytes # (Auto) 0.8 TH/MM3 (1.0-4.8) Imaging Last Impressions Abdomen/Pelvis CT 02/16/18 Signed Impressions: CONCLUSION: 1. Diffuse anasarca. 2. Abnormal fluid collection inside the rectum nonspecific, however infectious fluid collection could have this appearance and clinical correlation is sugges deondre. The exact etiology is not certain. 3. The stomach is distended with significant amount of stool throughout the co cinthya without signs of small bowel obstruction. Abdomen X-Ray 02/16/18 Signed Impressions: CONCLUSION: Benign-appearing abdomen. PE at Discharge Last Impressions GENERAL: NAD SKIN: Warm and dry. HEAD: Normocephalic. EYES: No scleral icterus. No injection or drainage. NECK: Supple, trachea midline. No JVD or lymphadenopathy. CARDIOVASCULAR: Regular rate and rhythm without murmurs, gallops, or rubs. RESPIRATORY: Breath sounds equal bilaterally. No accessory muscle use. GASTROINTESTINAL: Abdomen soft, non-tender, nondistended.+Ileal Conduit with clear yellow urine in bag . Colostomy bag in place LLQ MUSCULOSKELETAL: No cyanosis, +BLE edema. ; Scrotal edema BACK: Nontender without obvious deformity. No CVA tenderness. Hospital Course While in the Hospital and prior to discharge to hospice , patient was treated for: Pelvic abscess with pelvis osteomyelitis CT of the abdomen/pelvis shows areas suspicious for infection s/p vancomycin, cefepime, Currently on p.o. Zyvox, Flagyl, Diflucan and Cipro per ID Patient prefers aggressive measures at this time over palliative/hospice options Patient may benefit from tertiary care center due to difficulty with addressing the location of this infection Appreciate infectious disease consult Intractable pain Patient is currently on morphine, fentanyl patch and intermittent Dilaudid and Toradol scheduled Severe protein malnutrition Patient has had poor oral intake, poor sleep, chemotherapy for the past 7 months Continue to encourage p.o. intake and supplementation with Ensure History of bladder cancer Continue outpatient follow-up with oncologist Coronary artery disease Continue metoprolol Anasarca Continue Lasix DVT prophylaxis Heparin /SCD hose Patient will be discharged to hospice today Chau Rose MD Feb 25, 2018 13:57 Pt Condition on Discharge: Good Discharge Disposition: Hospice/Med Facility Discharge Instructions DIET: Follow Instructions for: As Tolerated, No Restrictions Activities you can perform: Regular-No Restrictions Chau Rose MD Feb 25, 2018 18:16
== END 2018-02-25 20:47 | disposition hospice, inpatient (51) | DRG 871 ==
LOC: NEPC 19:10 → NEDA 23:12 → NEDH 02-17 03:30 → HCIS 02-17 09:58 → N04A 02-18 02:35
PROVIDERS: ADMIT Hospitalist; ATTEND Hospitalist
DX: A41.9 Sepsis, unspecified organism (principal); E43 Unspecified severe protein-calorie malnutrition; R64 Cachexia; R65.20 Severe sepsis without septic shock; M86.9 Osteomyelitis, unspecified; Z90.6 Acquired absence of other parts of urinary tract; G89.3 Neoplasm related pain (acute) (chronic); I25.10 Atherosclerotic heart disease of native coronary artery without angina pectoris; Z95.5 Presence of coronary angioplasty implant and graft; Z90.79 Acquired absence of other genital organ(s); Z85.51 Personal history of malignant neoplasm of bladder; Z92.21 Personal history of antineoplastic chemotherapy; Z92.3 Personal history of irradiation; Z86.718 Personal history of other venous thrombosis and embolism; Z93.2 Ileostomy status; Z93.3 Colostomy status; Z85.46 Personal history of malignant neoplasm of prostate; Z68.21 Body mass index [BMI] 21.0-21.9, adult; R60.1 Generalized edema; E78.5 Hyperlipidemia, unspecified; F12.90 Cannabis use, unspecified, uncomplicated; K59.00 Constipation, unspecified; F17.210 Nicotine dependence, cigarettes, uncomplicated
CPT/HCPCS: 74019; 74177; 76937; 80048; 80053; 80307; 81001; 82565; 83036; 83605; 83690; 83735; 84100; 84439; 84443; 85025; 87040; 87086; 96361; 96365; J0692; J1170; J1644; J1885; J2270; J2930; J3370; J7030; J7040; J7050; Q9967